=== PATIENT | female | born 1940 | race Caucasian/White ===

== ENCOUNTER 2023-08-27 14:04 | Inpatient (IN) | payer MEDICARE, SELFPAY ==
[2023-08-27] VITALS (7 sets, daily range): BP systolic 142–161; BP diastolic 65–95; PULSE 66–77; RESP 14–28; TEMP 36.6; O2SAT 95–100; BMI 27.1
--- NOTE | ~2023-08-27 | CT_ITS ---
EXAMINATION: CT CHEST WITHOUT CONTRAST CLINICAL INFORMATION: Hypoxia COMPARISON: None available. TECHNIQUE: Multidetector volumetric CT imaging of the chest was done. Axial MIP volume rendering provided. Sagittal and coronal reformatted images were obtained. This CT examination was performed using dose optimization techniques as appropriate, variously including the following: *Automated exposure control *Adjustment of mA and/or kV according to patient size (this includes techniques or standardized protocols for targeted exams where dose is matched to indication/reason for exam; i.e. extremities or head) *Use of iterative reconstruction technique DLP: 192 mGy-cm FINDINGS: LUNGS: Within the left superior lingular segment anteriorly, there is a rounded masslike focus of consolidation measuring 5 x 2.7 x 3.9 cm (transverse by AP by craniocaudal) containing a few small air bronchograms. No surrounding groundglass attenuation. No additional foci of consolidation are identified in the left lung. Mild atelectasis is present in the lung bases bilaterally. Within the of the lateral segment of the right middle lobe, there is a wedge-shaped focus of airspace consolidation measuring 3 x 1.8 x 2.8 cm with small air bronchograms. A similar focus is present in the medial basilar segment of the right lower lobe, measuring 3 x 2.6 x 4.4 cm. Bilateral bronchial thickening is noted, particularly in the lower lobes. There is mild associated atelectasis. Mild interlobular septal thickening is seen at the lung apices and lung bases. A calcified granuloma is present in the left upper lobe. MEDIASTINUM: Cardiomegaly with marked biatrial enlargement. Atherosclerotic calcifications are present in the thoracic aorta and coronary arteries. No aneurysmal dilatation. Small to moderate-sized pericardial effusion. No hilar or mediastinal adenopathy. Thyroid gland is diminutive. CORONARY ARTERY CALCIFICATION: Three-vessel involvement PLEURA: Trace bilateral pleural effusions AXILLA: No lymphadenopathy. UPPER ABDOMEN: Unremarkable. OSSEOUS STRUCTURES: Diffuse idiopathic skeletal atherosclerosis is present in the thoracic spine with right convex lumbar scoliosis. Bones are osteopenic. Vertebral body heights are normal. No fractures. There is [id number] atrophy of the shoulder musculature bilaterally. Bilateral glenohumeral osteoarthritis. CT/CT chest wo IV con IMPRESSION: 1. Cardiomegaly with marked biatrial enlargement, small to moderate-sized pericardial effusion, and trace bilateral pleural effusions. Mild interlobular septal thickening and thickening of the peribronchial vascular interstitium is most consistent with mild interstitial pulmonary edema. Bronchial wall thickening could also be due to bronchitis. 2. A 5 cm focus of masslike consolidation in the lingula as well as 2 wedge-shaped foci of airspace consolidation in the right middle and right lower lobes. Pneumonia present bronchograms, the findings may correspond to multifocal pneumonia, though follow-up imaging after treatment is advised to ensure resolution and exclude mass lesions. Pulmonary infarcts are also on the differential. Fleischner guidelines were followed.
--- NOTE | ~2023-08-27 | CT_ITS ---
EXAMINATION: CT ANGIOGRAM HEAD CT ANGIOGRAM NECK CLINICAL INFORMATION: Reason for Exam AMS COMPARISON: None. TECHNIQUE: Initial noncontrast control operator imaging of the head and neck was performed. Noncontrast head CT was also performed. Test bolus sequences followed by intravenous administration 70 mL of Omnipaque 350. Helical imaging was performed in the axial plane from the aortic arch to the skull vertex. Delayed postcontrast imaging of the head was also performed. The data was processed at the public health technologist workstation for generation of MIP sequences. Angled MIPs and volume rendered reformatted images were also generated at an offline 3D workstation. Stenoses are assessed in accordance with NASCET criteria unless otherwise indicated. DLP: 2415 mGy-cm This CT examination was performed using dose optimization techniques as appropriate, variously including the following: *Automated exposure control. *Adjustment of mA and/or kV according to patient size (this includes techniques or standardized protocols for targeted exams where dose is matched to indication/reason for exam; i.e. extremities or head). *Use of iterative reconstruction technique. FINDINGS: CT Head: There is no evidence of acute intracranial hemorrhage or edematous territorial infarction. A few foci of hypoattenuation in the periventricular and deep white matter are consistent with mild microangiopathy. Lafleur-white matter differentiation is preserved. The ventricles are normal in size and configuration. No evidence for obstructive hydrocephalus. No abnormal mass effect or midline shift. No extra-axial fluid collections. No pathologic intra-axial enhancement or regional oligemia. No acute soft tissue or osseous abnormalities. The mastoid air cells and paranasal sinuses are clear. CT Neck: The thyroid gland and remaining cervical soft tissues are within normal limits. Multilevel cervical spondylosis with multilevel apparent moderate severe spinal canal stenosis, worst at C3-C4. Heterogeneous density of the axial skeleton with some areas of patchy sclerosis. CT Upper Chest: There are several scattered pulmonary nodules in the lung apices, largest measuring up to 3 mm. Please refer to report from same-day CT of the chest performed concurrently for full chest findings in the thorax. The visualized upper mediastinum is within normal limits. Neck CTA: Aortic Arch: Normal contour and caliber. Two vessel branching pattern of the arch with left common carotid artery arising from the brachiocephalic trunk. Great Vessel Origins: No significant stenosis of the branch origins. Right Common Carotid Artery: No focal stenosis or occlusion. Cervical Right Internal Carotid Artery: Calcific atherosclerotic disease of the carotid bulb and proximal internal carotid artery causing less than 50% stenosis. Left Common Carotid Artery: No focal stenosis or occlusion. Cervical Left Internal Carotid Artery: Calcific atherosclerotic disease of the carotid bulb and proximal internal carotid artery causing less than 50% stenosis. Cervical Right Vertebral Artery: No focal stenosis or occlusion. Cervical Left Vertebral Artery: No focal stenosis or occlusion. Brain CTA: Intracranial Internal Carotid Arteries: Calcific atherosclerotic disease of the intracranial internal carotid arteries without occlusion or flow-limiting stenosis. Right Anterior Cerebral Artery: Normal A1 segment. Normal opacification of the distal OTIS segments. Left Anterior Cerebral Artery: Normal A1 segment. Normal opacification of the distal OTIS segments. Anterior Communicating Artery: Normal. Right Middle Cerebral Artery: Normal M1 segment of the MCA without focal stenosis or occlusion. Normal arborization of the distal segments. Left Middle Cerebral Artery: Normal M1 segment of the MCA without focal stenosis or occlusion. Normal arborization of the distal segments. Right Vertebral Artery: Normal V4 segment. Left Vertebral Artery: Normal V4 segment. Basilar Artery: Normal without focal stenosis or occlusion. Normal appearance of the proximal superior cerebellar arteries. Right Posterior Cerebral Artery: Normal P1 segment. Normal opacification of the distal [employer] segments. Left Posterior Cerebral Artery: Normal P1 segment. Normal opacification of the distal [employer] segments. Normal opacification of the superior sagittal, straight, transverse, and sigmoid sinuses. CT/CT angio head neck IMPRESSION: 1. No acute intracranial abnormality including hemorrhage, mass effect, hydrocephalus, or acute territorial edematous infarction. 2. No arterial high grade stenosis or large vessel occlusion in the head or neck. 3. Patchy sclerotic appearance of the axial skeleton. While this may reflect sequela of osteoporosis or metabolic bone disease, osseous metastatic disease is not excluded. 4. Multilevel cervical spondylosis with multilevel apparent moderate to high-grade central spinal canal stenosis, worst and severe at C3-C4. If there are clinical symptoms attributable to myelopathy, this could be further assessed with MRI.
--- NOTE | 2023-08-27 14:08 | ECG_ITS ---
Test Reason : ams Blood Pressure : / mmHG Vent. Rate : 060 BPM Atrial Rate : 000 BPM P-R Int : 000 ms QRS Dur : 088 ms QT Int : 412 ms P-R-T Axes : 000 028 -10 degrees QTc Int : 412 ms Atrial fibrillation Low voltage QRS Nonspecific T wave abnormality Abnormal ECG When compared with ECG of 12-JUL-2004 23:28, Nonspecific T wave abnormality has replaced inverted T waves in Inferior leads Nonspecific T wave abnormality has replaced inverted T waves in Lateral leads Referred By: Darling Fregoso Electronically Signed By:OMAYRA DHILLON
--- NOTE | 2023-08-27 14:12 | ED.GENADULT ---
HPI - General Adult General Chief complaint: Altered Mental Status Stated complaint: AMS,STROKE ALERT,SPEECH,LKWT 06:30,ON ELIQUIS Time Seen by Provider: 08/27/23 14:08 History of Present Illness HPI narrative: 83 y/o F patient; PMH CVA, atrial fibrillation on Eliquis and Metoprolol, hypothyroidism, HF on Bumex and Acetazolamide; presents via EMS from home as stroke alert. Patient last seen normal at 0630 this morning. Patient's told EMS that she became more agitated than her baseline so he provided her with a benzodiazepine. Unclear what time this was given or what dose was given (patient does have a prescription for Clonazepam 0.5mg PRN night time anxiety). Patient was then found by her and daughter to be more confused this afternoon. She had increased generalized weakness of all extremities. On EMS arrival patient had glucose >100. Responsive to verbal stimuli. Generalized weakness of all upper and lower extremities. Patient here is AOx2 to self and birthday. She is aware she recently had a birthday. Denies any acute complaints, pain or discomfort. Able to hold up left and right upper extremities. Able to hold up left and right lower extremities. Able to roll self with assistance. Call placed to patient's without answer. Related Data Allergies Allergy/AdvReac Type Severity Reaction Status Date / Time No Known Allergies Allergy Verified 08/27/23 14:57 Review of Systems Review of Systems: Yes all other systems are reviewed and are negative Neurologic: Denies Abnormal speech present and Denies Sensory deficit (Neuro) REPLACED BY [facility] Past Medical History Attestation statement: The following information was validated with the patient. Source: unable to obtain Social History Social History Advance Directives: No Do you have a plan to hurt others: No Plan Physical Exam ED Vital Signs: Vital Signs - 24 hr 08/27/23 14:33 08/27/23 15:35 08/27/23 16:12 Temperature 97.9 F Pulse Rate 66 Respiratory Rate 14 27 H 28 H Blood Pressure 142/80 H Pulse Oximetry 95 Oxygen Delivery Method Nasal Cannula Oxygen Flow Rate 08/27/23 17:51 08/27/23 19:51 08/27/23 19:57 Temperature Pulse Rate 74 66 Respiratory Rate 19 23 H 17 Blood Pressure 159/65 H 148/79 H Pulse Oximetry 100 99 Oxygen Delivery Method Nasal Cannula Room Air Oxygen Flow Rate 2.5 BMI result Body Mass Index 27.1 Const General: cooperative Orientation/consciousness: oriented to person and oriented to time HENMT Head: Yes normal to inspection and Yes atraumatic Eyes General: appearance normal, both eyes and all related structures Pupils: Equal, round and reactive pupils present and Dilated pupils Neck Neck: No tender Chest Chest palpation & inspection: normal inspection of the chest and normal palpation of entire chest wall Resp Effort & Inspection: normal respiratory effort, able to speak in complete sentences, no cough and no respiratory distress Auscultation: clear to auscultation bilaterally Cardio Other: HR irregularly irregular Peripheral pulses: Peripheral pulses 2+ throughout GI Inspection: Yes normal to inspection and No distended Palpation (GI): Soft to palpation, not firm, nontender, no guarding and not rigid Auscultation: normal bowel sounds Back/Spine/Pelvis Other: No tenderness, no sacral ulceration Neuro General: oriented to person, oriented to time and moves all extremities Cranial nerves: Yes Equal, round and reactive pupils present, Yes Bilaterally intact EOM present and Yes Nystagmus not present Speech: No Abnormal speech present Motor exam (neuro): Other motor observations present (Strength 5/5 upper extremities bilatera, 3/5 lower extremities bilaterally ) Sensory Exam: No Sensory deficit (Neuro) Extrem Other: Healing skin abrasions to right anterior mancini, acute appearing skin abrasion to right medial anterior mancini NIH Stroke Scale Internal: Initial- Upon Arrival Time: 14:27 Level of Consciousness: Alert Level of Consciousness Questions: Answers both questions correctly Level of Consciousness Commands: Performs both tasks correctly Best Gaze: Normal Visual: No visual loss Facial Palsy: Normal Motor Arm (Right): No drift Motor Arm (Left): No drift Motor Leg (Right): Some effort against gravity Motor Leg (Left): Some effort against gravity Limb Ataxia: Absent Sensory: Normal Best Language: No aphasia Dysarthia: Normal Extinction and Inattention: No abnormality Score: 4 Course Course Course Narrative: Patient is afebrile and hemodynamically stable. Last known well at 0630, did receive unknown dose of benzodiazepine this morning for agitation. NIHSS 4 for bilateral lower extremity weakness with some effort against gravity. Patient is able to obey commands and can roll self in bed with direction. Ordered for laboratory studies including AMS studies (ethanol, utox, acetaminophen level, salicylate level), EKG, and CTA Head/Neck. Patient is NOT a candidate for tNK as she has LKW over 4 hours ago and is already on Eliquis. Concern patient's presentation is more global encephalopathy, ? 2/2 to iatrogenic medication. However differentials also includes but is not limited to CVA and infection. Reevaluation(s) Reevaluation #1: Spoke with patient's daughter who provided collateral history. Meri Radha ([phone]). Patient woke up at 0300 with increased confusion from bad dreams. Was agitated and angry for about an hour. Patient has had this since Saturday (08/23/2023). Patient's family is concerned it is related to dementia. Recently patient has had decreased PO intake, weight loss of 6 - 7lb in the last one week, increased body tremors. Patient typically uses walker to ambulate but has had decrease mobility lately. Patient and use to attend card games in living community but lately patient has been too weak to ambulate so far and appeared to have forgotten the rules of how to play the card game as well as having difficulty focusing. Patient's daughter states she arrived to the patient's home at 0530 and found her more confused. At 10am patient was given Clonazepam 0.5mg for anxiety. She had been refusing this medication over the last several days. Immediately after taking this medication she had decreased speech and then appeared to fall asleep. Patient's then approx an hour later had difficulty waking her up. He used his SpO2 monitor and found that the patient was saturating at 95% so he called EMS. Reevaluation #2: Laboratory studies reviewed. No leukocytosis. Baseline Hgb. Significant thrombocytopenia platelets 72. VBG with pH 7.26, pCO2 81. Given VBG and concern for patient's current mental status - discussion had with patient's and daughter at bedside. Patient recently confirmed with daughter and PCP that she was DNR/DNI. Patient's daughter understands the risks (aspiration, pneumonia, infection) and benefits (improved respirations, improvement in respiratory acidosis) regarding the use of bipap in AMS patient. Patient's daughter is agreeable to the use of bipap. Will repeat VBG in 1 hour after bipap placement. Cr 1.2. Troponin 12.8. Normal TSH. Ethanol negative. COVID/Flu/RSV negative. Added CT Chest w/o contrast due to patient's hypoxia although due suspect that this is more 2/2 to encephalopathy. Reevaluation #3: Patient's VBG improved on bipap. Trialled off bipap and VBG worsened - replaced on bipap. Family are interested in continuing bipap at this time pending CT results. If CTs are normal, family would consider ORIENTAL RUG STRETCHER approach. However if there is a reversible cause family would like to consider treatment. While in CT scanner patient with significant agitation, provided Fentanyl 25mcg IV to good effect. Plan: Transition care to Dr. Ackerman pending repeat VBG, CT results, and disposition Condition: Stable Medical Decision Making Lab Data 08/27/23 15:01 08/27/23 15:01 Labs: Lab Results 08/27/23 08/27/23 08/27/23 Range/Units 14:43 15:01 15:09 WBC 6.2 (4.8-10.8) X10*3/uL RBC 4.92 (4.20-5.50) X10*6/uL Hgb 13.9 (12.0-16.0) g/dl Hct 47.1 H (37.0-47.0) % MCV 95.7 (80.0-98.0) fL MCH 28.3 (27.0-33.0) pg MCHC 29.5 L (31.0-35.0) g/dl RDW 16.9 H (11.0-16.0) % Plt Count 72 L (160-400) X10*3/uL MPV 11.2 (9.4-12.3) fL Immature Gran % (Auto) 0.5 H (0.0-0.4) % Neut % (Auto) 83.0 H (45-73) % Lymph % (Auto) 6.9 L (20-40) % [place] % (Auto) 7.6 (2-11) % Eos % (Auto) 1.5 (0-4) % Baso % (Auto) 0.5 (0-2) % Lymph # (Auto) 0.4 L (1.2-4.9) X10*3/uL [place] # (Auto) 0.5 (0.1-1.2) X10*3/uL Eos # (Auto) 0.1 (0.0-0.4) X10*3/uL Baso # (Auto) 0.0 (0.0-0.2) X10*3/uL Abs Immat Gran (auto) 0.03 (0.00-0.03) X10*3/uL Absolute Neuts (auto) 5.1 (2.0-8.3) x10*3/uL Absolute Nucleated RBC 0.000 (0.0-0.012) X10*3/uL Nucleated RBC % (auto) 0.0 (0.0-0.2) /100WBC VBG pH 7.26 L (7.32-7.43) VBG pCO2 81 mmHg VBG pO2 46 mmHg VBG HCO3 37 H (22-26) mmol/L VBG O2 Saturation 69.0 % VBG Base Excess 6.3 mmol/L Sodium 142 (135-145) mmol/L Potassium 3.8 (3.3-5.1) mmol/L Chloride 103 (96-108) mmol/L Carbon Dioxide 31 H (22-29) mmol/L Anion Gap 12 (12-20) BUN 22 H (9-16) mg/dL Creatinine 1.20 (0.5-1.4) mg/dL Estim Creat Clear Calc 35.1 Estimated GFR 43 POC Glucose 111 (60-115) mg/dL Random Glucose 118 H (60-115) mg/dL Calcium 8.9 (8.4-10.2) mg/dL Total Bilirubin 1.0 (0.0-1.0) mg/dL Direct Bilirubin 0.4 (0.0-0.5) mg/dL AST 29 (5-31) U/L ALT 15 (0-31) U/L Alkaline Phosphatase 81 (39-117) U/L Troponin I High Sens 12.8 (<3.5-17.0) ng/L Total Protein 7.8 (6.5-8.0) g/dL Albumin 3.5 (3.5-5.0) g/dL Lipase 20 (8-78) U/L TSH 1.45 (0.32-4.0) uIU/mL Thyroxine (T4) 8.5 (4.5-12.0) ug/dL Salicylates < 5.0 L (15-30) mg/dL Acetaminophen < 3 (<30) mcg/mL Ethyl Alcohol < 10 mg/dL Influenza Type A (PCR) NEGATIVE (Negative) Influenza Type B (PCR) NEGATIVE (Negative) RSV RNA Qual (PCR) NEGATIVE (Negative) SARS-CoV-2 RNA (RT-PCR) NEGATIVE (Negative) 08/27/23 08/27/23 08/27/23 Range/Units 17:18 17:20 19:37 WBC (4.8-10.8) X10*3/uL RBC (4.20-5.50) X10*6/uL Hgb (12.0-16.0) g/dl Hct (37.0-47.0) % MCV (80.0-98.0) fL MCH (27.0-33.0) pg MCHC (31.0-35.0) g/dl RDW (11.0-16.0) % Plt Count (160-400) X10*3/uL MPV (9.4-12.3) fL Immature Gran % (Auto) (0.0-0.4) % Neut % (Auto) (45-73) % Lymph % (Auto) (20-40) % [place] % (Auto) (2-11) % Eos % (Auto) (0-4) % Baso % (Auto) (0-2) % Lymph # (Auto) (1.2-4.9) X10*3/uL [place] # (Auto) (0.1-1.2) X10*3/uL Eos # (Auto) (0.0-0.4) X10*3/uL Baso # (Auto) (0.0-0.2) X10*3/uL Abs Immat Gran (auto) (0.00-0.03) X10*3/uL Absolute Neuts (auto) (2.0-8.3) x10*3/uL Absolute Nucleated RBC (0.0-0.012) X10*3/uL Nucleated RBC % (auto) (0.0-0.2) /100WBC VBG pH 7.42 7.22 L (7.32-7.43) VBG pCO2 48 92 mmHg VBG pO2 142 84 mmHg VBG HCO3 31 H 38 H (22-26) mmol/L VBG O2 Saturation 100.0 95.0 % VBG Base Excess 6.3 6.6 mmol/L Sodium (135-145) mmol/L Potassium (3.3-5.1) mmol/L Chloride (96-108) mmol/L Carbon Dioxide (22-29) mmol/L Anion Gap (12-20) BUN (9-16) mg/dL Creatinine (0.5-1.4) mg/dL Estim Creat Clear Calc Estimated GFR POC Glucose (60-115) mg/dL Random Glucose (60-115) mg/dL Calcium (8.4-10.2) mg/dL Total Bilirubin (0.0-1.0) mg/dL Direct Bilirubin (0.0-0.5) mg/dL AST (5-31) U/L ALT (0-31) U/L Alkaline Phosphatase (39-117) U/L Troponin I High Sens 9.6 (<3.5-17.0) ng/L Total Protein (6.5-8.0) g/dL Albumin (3.5-5.0) g/dL Lipase (8-78) U/L TSH (0.32-4.0) uIU/mL Thyroxine (T4) (4.5-12.0) ug/dL Salicylates (15-30) mg/dL Acetaminophen (<30) mcg/mL Ethyl Alcohol mg/dL Influenza Type A (PCR) (Negative) Influenza Type B (PCR) (Negative) RSV RNA Qual (PCR) (Negative) SARS-CoV-2 RNA (RT-PCR) (Negative) Critical Care Time Critical Care Time Critical Care Time: Yes Total Critical Care Time: 60 Attestation: Respiratory failure requiring non-invasive ventilation. Repeat interpretation of blood gas. Discharge Plan Discharge Clinical Impression: Altered mental status, Hypoventilation Patient Disposition: Still a Patient Print Language: Syriac
[2023-08-27 15:08] LABS: Glucose, Whole Blood 111 mg/dL (60-115)
[2023-08-27 15:10] LABS: MANUAL DIFF FLAG NO
[2023-08-27 15:17] LABS: VBG Base Excess 6.3 mmol/L; VBG HCO3 37 mmol/L (22-26); VBG pCO2 81 mmHg; VBG pH 7.26 (7.32-7.43); VBG pO2 46 mmHg
[2023-08-27 15:17] LABS: Venous Blood Gas Refer to POC result
[2023-08-27 15:26] LABS: Basophils Percent Auto 0.5 % (0-2); Eosinophils Absolute Auto 0.1 X10*3/uL (0.0-0.4); Eosinophils Percent Auto 1.5 % (0-4); Hematocrit 47.1 % (37.0-47.0); Hemoglobin 13.9 g/dl (12.0-16.0); Imm Gran Abs Auto 0.03 X10*3/uL (0.00-0.03); Imm Gran Pct Auto 0.5 % (0.0-0.4); Lymphocytes Absolute Auto 0.4 X10*3/uL (1.2-4.9); Lymphocytes Percent Auto 6.9 % (20-40); Mean Corpuscular HGB Conc 29.5 g/dl (31.0-35.0); Mean Corpuscular Hemoglobin 28.3 pg (27.0-33.0); Mean Corpuscular Volume 95.7 fL (80.0-98.0); Monocytes Absolute Auto 0.5 X10*3/uL (0.1-1.2); Monocytes Percent Auto 7.6 % (2-11); Neutrophils Absolute Auto 5.1 x10*3/uL (2.0-8.3); Red Blood Count 4.92 X10*6/uL (4.20-5.50); Red Cell Distribution Width 16.9 % (11.0-16.0); White Blood Count 6.2 X10*3/uL (4.8-10.8)
[2023-08-27 15:42] LABS: Troponin-I High Sensitivity 12.8 ng/L (<3.5-17.0)
[2023-08-27 15:43] LABS: Alanine Aminotransferase 15 U/L (0-31); Albumin Level 3.5 g/dL (3.5-5.0); Alkaline Phosphatase 81 U/L (39-117); Anion Gap 12 (12-20); Aspartate Amino Transferase 29 U/L (5-31); Bilirubin Direct 0.4 mg/dL (0.0-0.5); Blood Urea Nitrogen 22 mg/dL (9-16); Calcium 8.9 mg/dL (8.4-10.2); Carbon Dioxide 31 mmol/L (22-29); Chloride 103 mmol/L (96-108); Creatinine Clr Calc Pharmacy 35.1; Estimated Glomerular Filt Rate 43; Ethanol < 10 mg/dL; Glucose Random 118 mg/dL (60-115); Lipase 20 U/L (8-78); Potassium 3.8 mmol/L (3.3-5.1); Sodium 142 mmol/L (135-145); Total Protein 7.8 g/dL (6.5-8.0)
[2023-08-27 15:50] LABS: Influenza A PCR NEGATIVE (Negative); Influenza B PCR NEGATIVE (Negative); Resp Syncy Virus RNA Qual PCR NEGATIVE (Negative); SARS COV2 PCR INHOUSE NEGATIVE (Negative)
[2023-08-27 15:51] LABS: Mean Platelet Volume 11.2 fL (9.4-12.3); Platelet Count 72 X10*3/uL (160-400)
[2023-08-27 15:57] LABS: T4 Thyroxine 8.5 ug/dL (4.5-12.0); Thyroid Stimulating Hormone 1.45 uIU/mL (0.32-4.0)
[2023-08-27 16:28] LABS: Acetaminophen LAB < 3 mcg/mL (<30); Salicylate < 5.0 mg/dL (15-30)
[2023-08-27 17:28] LABS: VBG Base Excess 6.3 mmol/L; VBG HCO3 31 mmol/L (22-26); VBG pCO2 48 mmHg; VBG pH 7.42 (7.32-7.43); VBG pO2 142 mmHg
[2023-08-27 17:29] LABS: Venous Blood Gas Refer to POC result
[2023-08-27 17:51] LABS: Troponin-I High Sensitivity 9.6 ng/L (<3.5-17.0)
[2023-08-27 19:44] LABS: VBG Base Excess 6.6 mmol/L; VBG HCO3 38 mmol/L (22-26); VBG pCO2 92 mmHg; VBG pH 7.22 (7.32-7.43); VBG pO2 84 mmHg
[2023-08-27 19:49] LABS: Venous Blood Gas Refer to POC result
[2023-08-27] MEDS: iohexoL 350 MG/ML 100 ML INFUS..BTL IV (21:11)
[2023-08-27] MEDS: fentaNYL citrate/PF 100 MCG/2 ML VIAL 25 MCG IVPUSH (21:25)
--- NOTE | 2023-08-27 21:26 | PC.NURSE ---
Pt became agitated in CT. MD at bedside. Verbal order: Fentanyl 25mcg IV. Became calm and CT scan able to be done.
[2023-08-27 21:40] LABS: VBG Base Excess 5.8 mmol/L; VBG HCO3 30 mmol/L (22-26); VBG pCO2 45 mmHg; VBG pH 7.44 (7.32-7.43); VBG pO2 220 mmHg
[2023-08-27 21:41] LABS: Venous Blood Gas Refer to POC result
[2023-08-28] VITALS (8 sets, daily range): BP systolic 123–173; BP diastolic 57–83; PULSE 66–87; RESP 12–25; TEMP 36.4–37; O2SAT 94–99
[2023-08-28 00:14] LABS: Lactic Acid 1.2 mmol/L (0.5-2.0)
[2023-08-28 02:25] LABS: Venous Blood Gas Refer to POC result
[2023-08-28 02:27] LABS: VBG Base Excess 5.9 mmol/L; VBG HCO3 31 mmol/L (22-26); VBG pCO2 48 mmHg; VBG pH 7.42 (7.32-7.43); VBG pO2 163 mmHg
--- NOTE | 2023-08-28 04:29 | P.HPHOSP_ITS ---
History of Present Illness Date of Service: 08/28/23 Attending physician on admission: Cleo Morfin Chief Complaint: Altered mental status Soraya Chen is 83 years old woman with past medical history significant for atrial fibrillation on Eliquis, hypothyroidism and CHF on Bumex and acetazolamide was brought to the emergency department via EMS after she was found to be altered. According to ED triage notes patient was seen well around 6:30 AM by her . She was found to have an oxygen saturation between 80 and 88% on room air by EMS. Her oxygen saturation increased to 95% with supplemental oxygen, 2 liters/minutes via nasal cannula. Patient was given clonazepam 0.5 mg by her as she was agitated. It was mentioned that patient has decreased p.o. intake, tremors and weight loss over the last week. As per ED provider who spoke with patient's family patient was found to be more confused today and was not found to have any focal weakness. In the ED, she was found to be tachypneic and hypoxic. No tachycardia or hypotension were reported. Blood workup showed no leukocytosis. Hemoglobin is 13.9 and platelets are low, 72. There are no significant electrolyte imbalances. Bicarb was 31. LFTs, TSH and troponins are normal. Salicylates, acetaminophen alcohol levels are undetectable. Viral testing for COVID-19, influenza and RSV is negative. Initial venous blood gas showed respiratory acidosis. Chest CTA showed cardiomegaly with marked bilateral enlargement, moderate pericardial effusion and interstitial pulmonary edema. It also showed finding consistent with pneumonia. Head and neck CTA showed no intracranial bleeding, hydrocephalus, mass effect or high-grade stenosis or large vessel occlusion. ECG showed atrial fibrillation with a heart rate 60 beats per minute and nonspecific T-wave abnormalities. Patient was treated with BiPAP and most recent venous gas showed correction of respiratory acidosis. According to ED notes patient is DNR/DNI. Patient was unable to provide her HPI due to altered mental status. Review of Systems 2 Review of Systems: Yes Unobtainable due to mental status [facility] Medical History (Updated 08/28/23 @ 05:06 by Cleo Morfin MD) Atrial fibrillation Congestive heart failure Hypothyroidism Social History Advance Directives: No Do you have a plan to hurt others: No Plan Meds Allergies Allergy/AdvReac Type Severity Reaction Status Date / Time No Known Allergies Allergy Verified 08/27/23 14:57 Active Medications: Current Medications Heparin Sodium (Porcine) (Heparin Sodium,Porcine 5,000 Unit/Ml Vial) 5,000 unit SUBCUT Q12H [facility] Sodium Chloride (0.9 % Sodium Chloride Flush 3 Ml Syringe) 3 ml IVFLUSH QSHIFT TETO Physical Exam 2 Vital Signs and Narrative: Vital Signs: Last Vital Signs Temp 98.6 F 08/28/23 01:30 Pulse 66 08/28/23 04:26 Resp 12 08/28/23 04:26 BP 142/63 H 08/28/23 04:26 Pulse Ox 99 08/28/23 04:26 O2 Del Method Nasal Cannula 08/28/23 04:26 O2 Flow Rate 2 08/28/23 04:26 Oxygen Flow Rate 3 08/27/23 14:33 BMI result Body Mass Index 27.1 Constitutional - Lethargic. Wakes up upon calling her name fall asleep quickly. No distress. Afebrile. HEENT - Atraumatic head. PERRL. Normal sclerae. Dry oral mucosa. Heart - RRR. Distant sounds. Lungs - Normal lung expansion, Normal respiratory effort, poor inspiratory effort. No tachypnea. No wheezes. Abdomen - NT / ND; +BS; No rebound or guarding Extremities - no calf tenderness bilaterally, no swelling Skin - Warm/Dry Neurological - Lethargic. Awakes open calling her name. Able to tell me her name. No facial droop noted. Psychological - No agitation. Results Labs 08/27/23 15:01 08/27/23 15:01 Labs: Laboratory Results - last 24 hr 08/27/23 08/27/23 08/27/23 14:43 15:01 15:09 MCV 95.7 MCH 28.3 MCHC 29.5 L RDW 16.9 H Plt Count 72 L MPV 11.2 Immature Gran % (Auto) 0.5 H Neut % (Auto) 83.0 H Lymph % (Auto) 6.9 L Grundy % (Auto) 7.6 Eos % (Auto) 1.5 Baso % (Auto) 0.5 Lymph # (Auto) 0.4 L Grundy # (Auto) 0.5 Eos # (Auto) 0.1 Baso # (Auto) 0.0 Abs Immat Gran (auto) 0.03 Absolute Neuts (auto) 5.1 Absolute Nucleated RBC 0.000 Nucleated RBC % (auto) 0.0 VBG pH 7.26 L VBG pCO2 81 VBG pO2 46 VBG HCO3 37 H VBG O2 Saturation 69.0 VBG Base Excess 6.3 Anion Gap 12 Estim Creat Clear Calc 35.1 Estimated GFR 43 POC Glucose 111 Random Glucose 118 H Lactic Acid Calcium 8.9 Total Bilirubin 1.0 Direct Bilirubin 0.4 AST 29 ALT 15 Alkaline Phosphatase 81 Troponin I High Sens 12.8 Total Protein 7.8 Albumin 3.5 Lipase 20 TSH 1.45 Thyroxine (T4) 8.5 Salicylates < 5.0 L Acetaminophen < 3 Ethyl Alcohol < 10 Influenza Type A (PCR) NEGATIVE Influenza Type B (PCR) NEGATIVE RSV RNA Qual (PCR) NEGATIVE SARS-CoV-2 RNA (RT-PCR) NEGATIVE 08/27/23 08/27/23 08/27/23 17:18 17:20 19:37 MCV MCH MCHC RDW Plt Count MPV Immature Gran % (Auto) Neut % (Auto) Lymph % (Auto) Grundy % (Auto) Eos % (Auto) Baso % (Auto) Lymph # (Auto) Grundy # (Auto) Eos # (Auto) Baso # (Auto) Abs Immat Gran (auto) Absolute Neuts (auto) Absolute Nucleated RBC Nucleated RBC % (auto) VBG pH 7.42 7.22 L VBG pCO2 48 92 VBG pO2 142 84 VBG HCO3 31 H 38 H VBG O2 Saturation 100.0 95.0 VBG Base Excess 6.3 6.6 Anion Gap Estim Creat Clear Calc Estimated GFR POC Glucose Random Glucose Lactic Acid Calcium Total Bilirubin Direct Bilirubin AST ALT Alkaline Phosphatase Troponin I High Sens 9.6 Total Protein Albumin Lipase TSH Thyroxine (T4) Salicylates Acetaminophen Ethyl Alcohol Influenza Type A (PCR) Influenza Type B (PCR) RSV RNA Qual (PCR) SARS-CoV-2 RNA (RT-PCR) 08/27/23 08/27/23 08/28/23 21:32 23:57 02:20 MCV MCH MCHC RDW Plt Count MPV Immature Gran % (Auto) Neut % (Auto) Lymph % (Auto) Grundy % (Auto) Eos % (Auto) Baso % (Auto) Lymph # (Auto) Grundy # (Auto) Eos # (Auto) Baso # (Auto) Abs Immat Gran (auto) Absolute Neuts (auto) Absolute Nucleated RBC Nucleated RBC % (auto) VBG pH 7.44 H 7.42 VBG pCO2 45 48 VBG pO2 220 163 VBG HCO3 30 H 31 H VBG O2 Saturation 100.0 99.0 VBG Base Excess 5.8 5.9 Anion Gap Estim Creat Clear Calc Estimated GFR POC Glucose Random Glucose Lactic Acid 1.2 Calcium Total Bilirubin Direct Bilirubin AST ALT Alkaline Phosphatase Troponin I High Sens Total Protein Albumin Lipase TSH Thyroxine (T4) Salicylates Acetaminophen Ethyl Alcohol Influenza Type A (PCR) Influenza Type B (PCR) RSV RNA Qual (PCR) SARS-CoV-2 RNA (RT-PCR) Imaging Radiologist's Impressions: Impressions Head/Neck CTA 08/27/23 21:35 IMPRESSION: 1. No acute intracranial abnormality including hemorrhage, mass effect, hydrocephalus, or acute territorial edematous infarction. 2. No arterial high grade stenosis or large vessel occlusion in the head or neck. 3. Patchy sclerotic appearance of the axial skeleton. While this may reflect sequela of osteoporosis or metabolic bone disease, osseous metastatic disease is not excluded. 4. Multilevel cervical spondylosis with multilevel apparent moderate to high-grade central spinal canal stenosis, worst and severe at C3-C4. If there are clinical symptoms attributable to myelopathy, this could be further assessed with MRI. Chest CT 08/27/23 21:36 IMPRESSION: 1. Cardiomegaly with marked biatrial enlargement, small to moderate-sized pericardial effusion, and trace bilateral pleural effusions. Mild interlobular septal thickening and thickening of the peribronchial vascular interstitium is most consistent with mild interstitial pulmonary edema. Bronchial wall thickening could also be due to bronchitis. 2. A 5 cm focus of masslike consolidation in the lingula as well as 2 wedge-shaped foci of airspace consolidation in the right middle and right lower lobes. Pneumonia present bronchograms, the findings may correspond to multifocal pneumonia, though follow-up imaging after treatment is advised to ensure resolution and exclude mass lesions. Pulmonary infarcts are also on the differential. Fleischner guidelines were followed. Assessment and Plan (1) Acute encephalopathy: Status: Acute (2) Respiratory failure with hypoxia and hypercapnia: Qualifiers: Chronicity: acute Qualified Code(s): J96.01 - Acute respiratory failure with hypoxia; J96.02 - Acute respiratory failure with hypercapnia Status: Acute Plan Soraya Chen is 83 years old woman admitted with: * Acute encephalopathy, likely multifactorial: Hypoxia secondary to pneumonia + interstitial pulmonary edema with pericardial effusion, over-sedation secondary to benzodiazepine use causing respiratory acidosis. ?Stroke symptoms. Admit to hospitalist service. Telemetry. Continuous pulse oximetry. Supplemental O2 to keep O2 sats > 90%. Aspiration and fall precautions. NPO until swallow eval. Continue empiric IV antibiotic therapy with Zosyn. Chest CT scan to be repeated after antibiotic course (? Masslike structure). Avoid benzodiazepines or sedatives. Neurology consult for further recommendations. * Hypoxic and hypercapnic respiratory failure likely secondary to sedation, pneumonia, pulmonary edema and pericardial effusion. Respiratory acidosis resolved. Avoid sedatives. Supplemental oxygen. Start therapy with Lasix IV + IV antibiotics. * History of heart failure with moderate pericardial effusion + pulmonary edema on chest CT scan. Start treatment with Lasix IV. Check TTE. Cardiology consult. * Chronic atrial fibrillation, rate controlled. Telemetry. Unclear if patient is using rate control agents. Med rec by pharmacy pending. Eliquis on hold due to thrombocytopenia. * Thrombocytopenia, cause unclear. Hold Eliquis. Continue to monitor. * Hypothyroidism. TSH is normal. Unclear if patient is taking levothyroxine. Med rec by pharmacy pending. DVT prophylaxis: SCDs only GI prophylaxis: Protonix IV Code status: DNR/DNI (according to ED who spoke with patient's daughter). Patient will need hospitalization for at least 2 midnights for acute encephalopathy respiratory failure treatment with supplemental oxygen, diuretics and empiric IV antibiotic therapy. Quality Stroke Does the patient have a stroke diagnosis?: No VTE Prior VTE?: No VTE Risk Level:: Medical - moderate - high VTE Device Contraindication: Treatment Not Indicated VTE Drug Contraindication: N/A - Med Ordered
[2023-08-28] MEDS: Piperacillin Sodium/Tazobactam 3.375 GM in 0.9 % Sodium Chloride 50 ML IV ×4 (05:50→18:39)
[2023-08-28] MEDS: Pantoprazole Sodium 40 MG/10 ML VIAL IVPUSH (05:50)
[2023-08-28 05:55] LABS: MANUAL DIFF FLAG NO
[2023-08-28 05:56] LABS: Eosinophils Percent Auto 0.2 % (0-4); Hematocrit 48.8 % (37.0-47.0); Imm Gran Abs Auto 0.16 X10*3/uL (0.00-0.03); Lymphocytes Absolute Auto 0.3 X10*3/uL (1.2-4.9); Mean Corpuscular Volume 96.1 fL (80.0-98.0); Red Blood Count 5.08 X10*6/uL (4.20-5.50)
[2023-08-28 05:58] LABS: Basophils Percent Auto 0.5 % (0-2); Hemoglobin 14.3 g/dl (12.0-16.0); Lymphocytes Percent Auto 3.7 % (20-40); Mean Corpuscular HGB Conc 29.3 g/dl (31.0-35.0); Mean Corpuscular Hemoglobin 28.1 pg (27.0-33.0); Mean Platelet Volume 9.9 fL (9.4-12.3); Monocytes Absolute Auto 0.6 X10*3/uL (0.1-1.2); Neutrophils Absolute Auto 6.9 x10*3/uL (2.0-8.3); Neutrophils Percent Auto 85.6 % (45-73); Red Cell Distribution Width 16.6 % (11.0-16.0)
[2023-08-28 05:59] LABS: Platelet Count 67 X10*3/uL (160-400); White Blood Count 8.1 X10*3/uL (4.8-10.8)
--- NOTE | 2023-08-28 07:00 | CA_ITS ---
Transthoracic Echocardiogram Patient (Last, First, Middle): ParentSoraya, Gender: Female Date of : 1940 Age: 83 Procedure Date: 08/28/2023 Procedure Type: Transthoracic Echocardiogram Location: ER Height: 165.1 cm Weight: 73.94 kg BSA: 1.81 m2 Heart Rate: bpm BP: 123 / 57 mmHg Product Marketer: SB Referring MD: Cleo Morfin MD Symptoms: Pericardial effusion noted on CT scan Study Quality: Adequate w contrast ECG Rhythm: Atrial Fibrillation Conclusions: - The left ventricular systolic function is hyperdynamic. The visually estimated ejection fraction is >70%. - No obvious valvular pathology seen on this study. - Mild to moderate pulmonary hypertension is present. - There is a small loculated pericardial effusion overlying the left ventricle and right atrium. - The inferior vena cava is mildly dilated and collapses less than 50% with inspiration. Findings Procedure Information Contrast agent, definity, is being given per protocol without apparent complications. Left Ventricle Normal left ventricular cavity size. There is normal left ventricular wall thickness. The left ventricular systolic function is hyperdynamic. The visually estimated ejection fraction is >70%. There is no evidence of regional wall motion abnormalities. Diastolic function is indeterminate on the basis of available data. Right Ventricle The right ventricle was not well visualized. Normal right ventricular cavity size. Atria The left atrium is likely dilated. The right atrium is severely dilated. Aortic Valve There is a normal trileaflet aortic valve. There is no aortic valve stenosis. There is no aortic valve regurgitation. Mitral Valve The mitral valve appears normal. There is no mitral valve regurgitation. There is no mitral valve stenosis. Pulmonic Valve The pulmonic valve is likely normal. Tricuspid Valve There is mild tricuspid valve regurgitation. The right ventricular systolic pressure is 57 mmHg. Mild to moderate pulmonary hypertension is present. Great Vessels The asc aorta and aortic arch are normal in size. Small plaque is seen in the sino tubular ridge. Venous The inferior vena cava is mildly dilated and collapses less than 50% with inspiration. Pericardium/Pleural There is a small loculated pericardial effusion overlying the left ventricle and right atrium. Prior Study Comparison No prior study available for comparison. Recommendations, Care & Conclusions No obvious valvular pathology seen on this study. Measurements 2D Linear Measurements IVSd: 0.91 0.6-0.9/0.6-1.0 cm LVIDd: 4.73 3.9-5.3/4.2-5.9 cm LVIDd Index: 2.61 2.4-3.2/2.2-3.1 cm/m2 LVIDs: 3.20 2.0-3.6 cm LVPWd: 0.88 0.7-1.1 cm LA Diam: 3.90 2.7-3.8/3.0-4.0 cm LAIDs Index: 2.15 1.5-2.3 cm/m2 LV Mass: 178.07 67-162/88-224 g LV Mass Index: 98.38 43-95/49-115 g/m2 LVOT Diam: 1.90 3.0+(-)1.3 cm 2D Systolic Function EF 4C: 75.10 >55% EF 2C: 75.60 >55% EF BiP: 74.20 >55% Mitral Valve MV Pk E: 1.17 E'Lateral: 6.42 E'Medial: 7.37 E/E' Med: 15.90 E/E' Lat: 18.20 Aortic Valve AoV Pk Nate: 0.80 AoV Pk Grad: 3.00 LVOT LVOT Pk Nate: 0.66 LVOT Mn Nate: 0.43 LVOT VTI: 0.12 LVOT Pk Grad: 2.00 LVOT Mn Grad: 1.00 LVOT Diam: 1.90 LVOT Area: 2.84 Diastolic Function MV Pk E: 1.17 E'Medial: 7.37 E/E' Med: 15.90 E' Laterial: 6.42 E/E' Lat: 18.20 Tricuspid Valve TR Pk Nate: 3.24 TR Pk Grad: 42.00 RA Press: 15.00 RVSP: 57.00 Great Vessels Aorta Sinus of Valsalva: 3.20 2.0-3.5 cm Ao Asc: 3.70 2.1-3.4 cm Ao Arch: 2.40 Pulmonary Valve PV Pk Nate: 0.84 Peak PV Grad: 3.00 Updated in Other Vendor System with Status of Final Daniel Wade MD electronically signed on 08/28/2023 11:48:53 AM with status of Final
[2023-08-28] MEDS: 0.9 % Sodium Chloride Flush 3 ML SYRINGE IVFLUSH (07:28)
--- NOTE | 2023-08-28 07:54 | PC.NURSE ---
This RN assumed care, pt laying supine in bed, no verbal response. Pt does move arms spontaneously and flutter eyes. VSS.
[2023-08-28 08:18] LABS: Alanine Aminotransferase 14 U/L (0-31); Albumin Level 3.3 g/dL (3.5-5.0); Alkaline Phosphatase 77 U/L (39-117); Anion Gap 17 (12-20); Aspartate Amino Transferase 29 U/L (5-31); Bilirubin Total 1.2 mg/dL (0.0-1.0); Blood Urea Nitrogen 23 mg/dL (9-16); Calcium 8.7 mg/dL (8.4-10.2); Carbon Dioxide 24 mmol/L (22-29); Chloride 107 mmol/L (96-108); Creatinine Clr Calc Pharmacy 31.7; Estimated Glomerular Filt Rate 38; Glucose Random 104 mg/dL (60-115); Potassium 4.2 mmol/L (3.3-5.1); Sodium 145 mmol/L (135-145); Total Protein 7.7 g/dL (6.5-8.0)
[2023-08-28] MEDS: Furosemide 20 MG/2 ML VIAL IVPUSH (09:55)
--- NOTE | 2023-08-28 10:40 | MHC.SLORD ---
Speech Language Pathology Order Status: BARK GRINDER attempted to see pt for clinical swallow eval this AM. Pt not awaking to verbal stimuli, repositioning, or sternal rub. Pt only response was groaning. Please reach out to BARK GRINDER if pt becomes awake/alert enough to participate in evaluation.
[2023-08-28 10:46] LABS: Appearance Urine Clear; Color Urine Yellow; Glucose Urine UA Negative (Negative); Leukocyte Esterase Urine Negative (Negative); Nitrite Urine Negative (Negative); PH 5.5 (5.0-9.0); Specific Gravity - Urine >= 1.030 (1.005-1.025); Urine Blood Negative (Negative); Urine Ketones Negative (Negative); Urine Protein Trace mg/dL (Neg-Trace)
[2023-08-28 10:59] LABS: Amphetamine Screen Urine Not Detected (Not Detect); Barbiturates, Urine Not Detected (Not Detect); Benzodiazepines Screen Urine Not Detected (Not Detect); Buprenorphine Scr Not Detected (Not Detect); Cannabinoid Screen Urine Not Detected (Not Detect); Cocaine Screen Urine Not Detected (Not Detect); Fentanyl, urine POSITIVE (Not Detect); Methadone Screen, Urine Not Detected (Not Detect); Opiate Screen Urine Not Detected (Not Detect); Oxycodone Screen Urine Not Detected (Not Detect); Phencyclidine Screen Urine Not Detected (Not Detect)
--- NOTE | 2023-08-28 11:40 | MHC.CM.PN ---
IMM 08/28/23 sent to / HCP. Pt lives with her . He helps to take care of her and they live in housing where they can request assistance within the building if they need it. Pt. has recently had VNA services from [facility]. HCP has been requested from [facility], where said it is on file. Pt. uses a walker. Transportation to be provided by daughter at [place]. PCP confirmed: Dr. Evangelista. DCP: home with services. CM to follow and assist with DC planning.
--- NOTE | 2023-08-28 11:42 | PC.NURSE ---
Pt noted to output approx 250 mL urine, yellow and clear, since Lasix administration. Continues not to respond verbally. VSS.
--- NOTE | 2023-08-28 12:30 | PC.NURSE ---
Pts IV no longer patent, leaking blood, unable to maintain. IV removed. Pt very hard stick, unable to get another IV. Another RN at bedside attempting ultrasound IV. ABX late due to this.
--- NOTE | 2023-08-28 13:58 | PC.NURSE ---
IV successfully placed by RN in left AC, ABX infused per MAR. Family at bedside.
--- NOTE | 2023-08-28 14:10 | MHC.EDTECH ---
compression socks were placed on pt's bl feet with orders from JES Dumont
--- NOTE | 2023-08-28 14:10 | PHA.MEDREC ---
Pharmacy Consult ? Medication Reconciliation Pharmacy has completed the medication reconciliation. used patient medication list from home. Patients Daughter and both verified they get her prescriptions from [facility] in [place] and from mail order [facility].
--- NOTE | 2023-08-28 14:37 | P.CNNE_ITS ---
History of Present Illness Data of Consult Service Date: 08/28/23 Primary Care Provider: Jade Evangelista MD [facility] Reason for consult: Altered mental status This is a 83 years old woman with h/o atrial fibrillation on Eliquis, hypothyroidism, and CHF was brought to the emergency department via EMS after she was found to be altered. According to ED triage notes patient was seen well around 6:30 AM by her . She was found to have an oxygen saturation between 80 and 88% on room air by EMS. Her oxygen saturation increased to 95% with supplemental oxygen, 2 liters/minutes via nasal cannula. Patient was given clonazepam 0.5 mg by her as she was agitated. It was mentioned that patient has decreased p.o. intake, tremors and weight loss over the last week. As per ED provider who spoke with patient's family patient was found to be more confused today and was not found to have any focal weakness.She is unable to give any info. She has evidence of pneumonia. Also positive for Fentanyl on Tox screen CT brain age appropriate changes and CTA of head and neck are negative Review of Systems 2 Review of Systems: Yes all other systems are reviewed and are negative and Unobtainable due to mental status Neurologic: Denies Abnormal speech present and Denies Sensory deficit (Neuro) [facility] Past Medical History Medical History (Updated 08/28/23 @ 05:06 by Cleo Morfin MD) Atrial fibrillation Congestive heart failure Hypothyroidism Social History Social History Patient Tobacco Use Status: Tobacco use Unknown Smoked in Last 30 Days: No Use of substances other than those prescribed or required for medical reasons: No Advance Directives: No Do you have a plan to hurt others: No Plan Nutrition Risks: No Nutritional Risk service: No Meds Allergies Allergy/AdvReac Type Severity Reaction Status Date / Time No Known Allergies Allergy Verified 08/27/23 14:57 Active Medications: Current Medications Furosemide (Furosemide 20 Mg/2 Ml Vial) 20 mg IVPUSH DAILY TETO; Protocol Last Admin: 08/28/23 09:55 Dose: 20 mg Piperacillin Sod/Tazobactam (Sod 3.375 gm/ Sodium Chloride) 50 mls @ 100 mls/hr IV Q6H TETO Last Infusion: 08/28/23 13:53 Dose: Infused Pantoprazole Sodium (Pantoprazole Sodium 40 Mg/10 Ml Vial) 40 mg IVPUSH DAILY@0630 [facility] Last Admin: 08/28/23 05:50 Dose: 40 mg Sodium Chloride (0.9 % Sodium Chloride Flush 3 Ml Syringe) 3 ml IVFLUSH QSHIFT [facility] Last Admin: 08/28/23 07:28 Dose: 3 ml Home Medications ?Medication ?Instructions ?Recorded ?Confirmed ?Last Taken ?Type acetazolamide 125 mg tablet 125 mg PO BID@0800,199908/28/23 08/28/23 Unknown History apixaban 5 mg tablet (Eliquis) 5 mg PO BID@0800,199908/28/23 08/28/23 Unknown History aspirin 81 mg tablet,delayed 81 mg PO DAILY@79908/28/23 08/28/23 Unknown History release atorvastatin 80 mg tablet 40 mg PO DAILY@199908/28/23 08/28/23 Unknown History bumetanide 1 mg tablet 1 mg PO DAILY@149908/28/23 08/28/23 Unknown History bumetanide 1 mg tablet 2 mg PO DAILY@79908/28/23 08/28/23 Unknown History cetirizine 10 mg tablet (Zyrtec) 10 mg PO DAILY 08/28/23 08/28/23 Unknown History clonazepam 0.5 mg tablet 0.5 mg PO BEDTIME PRN Anxiety 08/28/23 08/28/23 Unknown History ferrous sulfate 325 mg (65 mg 325 mg PO MOTH@0808/28/23 08/28/23 Unknown History iron) tablet hydralazine 10 mg tablet 10 mg PO TID@0800,1500,199908/28/23 08/28/23 Unknown History levothyroxine 137 mcg tablet 68.5 mcg PO DAILY@0708/28/23 08/28/23 Unknown History metoprolol tartrate 25 mg tablet 25 mg PO BID@0800,199908/28/23 08/28/23 Unknown History oxybutynin chloride 10 mg 10 mg PO DAILY@0808/28/23 08/28/23 Unknown History tablet,extended release 24 hr potassium chloride 20 mEq 20 meq PO SUMOTUWEFRSA@149908/28/23 08/28/23 Unknown History tablet,extended release potassium chloride 20 mEq 40 meq PO TH@1500 08/28/23 08/28/23 Unknown History tablet,extended release Physical Exam 2 Vital Signs: Vital Signs: Last Vital Signs Temp 98.6 F 08/28/23 01:30 Pulse 72 08/28/23 11:41 Resp 25 H 08/28/23 11:41 BP 143/72 H 08/28/23 11:41 Pulse Ox 98 08/28/23 11:41 O2 Del Method Nasal Cannula 08/28/23 11:41 O2 Flow Rate 2 08/28/23 11:41 Oxygen Flow Rate 3 08/27/23 14:33 BMI result Body Mass Index 27.1 Const: General: cooperative Orientation/consciousness: oriented to person and oriented to place HEENT: Head: Yes normal to inspection and Yes atraumatic Eyes: General: appearance normal, both eyes and all related structures P upils: Equal, round and reactive pupils present and Dilated pupils Neck: Neck: No tender Chest: Chest palpation & inspection: normal inspection of the chest and normal palpation of entire chest wall Resp: Effort & Inspection: normal respiratory effort, able to speak in complete sentences, no cough and no respiratory distress Auscultation: clear to auscultation bilaterally Cardio: Other: HR irregularly irregular Peripheral pulses: Peripheral pulses 2+ throughout GI: Inspection: Yes normal to inspection and No distended Palpation (GI): S oft to palpation, not firm, nontender, no guarding and not rigid A uscultation: normal bowel sounds Back/Spine/Pelvis: Other: No tenderness, no sacral ulceration Neuro: Other: She is lethargic but arousable. Her sister is awake briefly doesn't know her name and says she is in the hospital. She recognized her daughter and her . She answers in monosyllables and then goes back to sleep. She does not complain of any headache. There is some discomfort on neck movement. Events Traffic Controller strength is symmetrical and she moves all 4 extremities. No facial asymmetry. General: oriented to person, oriented to place and moves all extremities Cranial nerves: Yes Equal, round and reactive pupils present, Yes Bilaterally intact EOM present and Yes Nystagmus not present Speech: No Abnormal speech present Motor exam (neuro): Other motor observations present (Strength 5/5 upper extremities bilatera, 3/5 lower extremities bilaterally ) Sensory Exam: No Sensory deficit (Neuro) Extrem: Other: Healing skin abrasions to right anterior mancini, acute appearing skin abrasion to right medial anterior mancini Results Labs 08/28/23 05:48 08/28/23 07:44 Labs: Short CBC 08/27/23 08/28/23 Range/Units 15:01 05:48 WBC 6.2 8.1 (4.8-10.8) X10*3/uL Hgb 13.9 14.3 (12.0-16.0) g/dl Hct 47.1 H 48.8 H (37.0-47.0) % Plt Count 72 L 67 L (160-400) X10*3/uL BMP 08/27/23 08/28/23 15:01 07:44 Sodium 142 145 Potassium 3.8 4.2 Chloride 103 107 Carbon Dioxide 31 H 24 BUN 22 H 23 H Creatinine 1.20 1.33 Calcium 8.9 8.7 Liver Function 08/27/23 08/28/23 Range/Units 15:01 07:44 Total Bilirubin 1.0 1.2 H (0.0-1.0) mg/dL Direct Bilirubin 0.4 (0.0-0.5) mg/dL AST 29 29 (5-31) U/L ALT 15 14 (0-31) U/L Alkaline Phosphatase 81 77 (39-117) U/L Albumin 3.5 3.3 L (3.5-5.0) g/dL Urine 08/28/23 Range/Units 10:40 Urine Color Yellow Urine Appearance Clear Urine pH 5.5 (5.0-9.0) Ur Specific [place] >= 1.030 H (1.005-1.025) Urine Protein Trace (Neg-Trace) mg/dL Urine Glucose (UA) Negative (Negative) mg/dL Assessment and Plan (1) Acute encephalopathy: Status: Acute Encephalopathy related to pneumonia superimposed on baseline dementia. No focal neurological abnormalities or evidence of SURGICAL SALES REPRESENTATIVE infection. Imaging studies unremarkable. Recommendation hydration treatment of pneumonia. Expect gradual recovery to baseline. (2) Respiratory failure with hypoxia and hypercapnia: Qualifiers: Chronicity: acute Qualified Code(s): J96.01 - Acute respiratory failure with hypoxia; J96.02 - Acute respiratory failure with hypercapnia Status: Acute Plan Soraya Chen is 83 years old woman admitted with: * Acute encephalopathy, likely multifactorial: Hypoxia secondary to pneumonia + interstitial pulmonary edema with pericardial effusion, over-sedation secondary to benzodiazepine use causing respiratory acidosis. ?Stroke symptoms. Admit to hospitalist service. Telemetry. Continuous pulse oximetry. Supplemental O2 to keep O2 sats > 90%. Aspiration and fall precautions. NPO until swallow eval. Continue empiric IV antibiotic therapy with Zosyn. Chest CT scan to be repeated after antibiotic course (? Masslike structure). Avoid benzodiazepines or sedatives. Neurology consult for further recommendations. * Hypoxic and hypercapnic respiratory failure likely secondary to sedation, pneumonia, pulmonary edema and pericardial effusion. Respiratory acidosis resolved. Avoid sedatives. Supplemental oxygen. Start therapy with Lasix IV + IV antibiotics. * History of heart failure with moderate pericardial effusion + pulmonary edema on chest CT scan. Start treatment with Lasix IV. Check TTE. Cardiology consult. * Chronic atrial fibrillation, rate controlled. Telemetry. Unclear if patient is using rate control agents. Med rec by pharmacy pending. Eliquis on hold due to thrombocytopenia. * Thrombocytopenia, cause unclear. Hold Eliquis. Continue to monitor. * Hypothyroidism. TSH is normal. Unclear if patient is taking levothyroxine. Med rec by pharmacy pending. DVT prophylaxis: SCDs only GI prophylaxis: Protonix IV Code status: DNR/DNI (according to ED who spoke with patient's daughter). Patient will need hospitalization for at least 2 midnights for acute encephalopathy respiratory failure treatment with supplemental oxygen, diuretics and empiric IV antibiotic therapy. Procedures Date of Service Date of Service: 08/28/23
--- NOTE | 2023-08-28 15:08 | PM.EVENT ---
Event Note Date of Service: 08/28/23 Event Note: The patient was seen and evaluated this afternoon family at the bedside still difficult to arouse but reported to open eyes and engage with family in few words no reported fever or chills weaning down O2 Continue IV Zosyn pending blood cultures recurrent reorientation keep NPO until cleared by speech Time Spent With Patient Time: Total time managing care of this patient today ____ minutes.
--- NOTE | 2023-08-28 15:11 | MHC.SLORD ---
Speech Language Pathology Order Status: MACHINE CLOTH MEASURER attempted to visit pt again in afternoon. Pt accepted oral care. Did not elicit a swallow when taking trace amount of water off toothette. Pt did not accept tsp of trace amt applesauce. No further PO trials attempted d/t pt safety. MACHINE CLOTH MEASURER to attempt evaluation tomorrow AM.
[2023-08-28] MEDS: Dextrose 5 % and Lactated Ring 1,000 ML 50 ML IVCONT (15:28)
[2023-08-29] VITALS: BP 126/59; PULSE 80; RESP 18; TEMP 36.4; O2SAT 95
--- NOTE | 2023-08-29 | ECG_ITS ---
Test Reason : bradycardia Blood Pressure : / mmHG Vent. Rate : 061 BPM Atrial Rate : 000 BPM P-R Int : 000 ms QRS Dur : 080 ms QT Int : 000 ms P-R-T Axes : 000 031 057 degrees QTc Int : 000 ms Atrial fibrillation Nonspecific ST and T wave abnormality Abnormal ECG When compared with ECG of 27-AUG-2023 14:13, Nonspecific T wave abnormality now evident in Anterior leads Referred By: Cleo Morfin Electronically Signed By:OMAYRA DHILLON
[2023-08-29] MEDS: Piperacillin Sodium/Tazobactam 3.375 GM in 0.9 % Sodium Chloride 50 ML IV ×4 (01:25→18:11)
[2023-08-29 04:00] VITALS: BP 143/63; PULSE 80; RESP 18; TEMP 36.3; O2SAT 99
[2023-08-29] MEDS: Pantoprazole Sodium 40 MG/10 ML VIAL IVPUSH (05:30)
[2023-08-29 07:01] LABS: PLT CLUMP 1; Red Cell Distribution Width 16.4 % (11.0-16.0)
[2023-08-29 07:03] LABS: Hematocrit 45.9 % (37.0-47.0); Hemoglobin 13.5 g/dl (12.0-16.0); Mean Corpuscular HGB Conc 29.4 g/dl (31.0-35.0); Mean Corpuscular Hemoglobin 28.1 pg (27.0-33.0); Mean Corpuscular Volume 95.4 fL (80.0-98.0); Platelet Count 49 X10*3/uL (160-400); Red Blood Count 4.81 X10*6/uL (4.20-5.50); White Blood Count 7.4 X10*3/uL (4.8-10.8)
[2023-08-29 07:55] LABS: Anion Gap 14 (12-20); Blood Urea Nitrogen 21 mg/dL (9-16); Calcium 8.4 mg/dL (8.4-10.2); Carbon Dioxide 34 mmol/L (22-29); Chloride 104 mmol/L (96-108); Creatinine Clr Calc Pharmacy 31.5; Estimated Glomerular Filt Rate 38; Glucose Random 140 mg/dL (60-115); Sodium 149 mmol/L (135-145)
[2023-08-29 08:00] VITALS: BP 158/87; PULSE 85; RESP 20; TEMP 36.2; O2SAT 93
[2023-08-29] MEDS: 0.9 % Sodium Chloride Flush 3 ML SYRINGE IVFLUSH (10:12)
[2023-08-29] MEDS: Furosemide 20 MG/2 ML VIAL IVPUSH (10:12)
--- NOTE | 2023-08-29 10:43 | MHC.SL.SWA ---
Speech Pathologist Impression: Risk of Aspiration Due to: History of Pneumonia Reduced Cognition Dysphasia Diet Status: Liquid Consistency and Strategies for Safe Swallow: Liquid Intake Recommendation: [place] Thick Liquid Intake Strategies: Liquids by Teaspoon Only Solid Food Consistency: Dietary Recommendations: Pureed (NDD1) Additional Modifications to Solid Foods: Patient requires one to one feeding. Attempt to orient patient to food and liquids being presented. Do not attempt if patient is lethargic, her not initiate appropriate responses to presentation of food or liquid (e.g. lets liquids drip from mouth, is disruptive/agitated to being fed). Discontinue if clinical signs of aspiration are observed (coughing, throat clearing, drop in 02 sats). Liquids by tsp, no straws. Oral Medication Intake: Crushed with Puree Please contact the pharmacy regarding appropriate crushable or liquid drug formulations that are available whenever modified delivery is recommended. Compensatory Strategies and Precautions to be Taken for Safe Swallow: Sitting Upright (90 deg) No Straw Liquids from Spoon Small Bites and Sips Alternate Liquids/Solids Oral Check Supervision While Eating and Drinking for Safe Swallow: Total Assistance (1:1) Foods to Avoid: Swallowing Recommended Treatments: Compens. Strategy Educat. Recommendation for Speech: Inpatient Speech Therapy Comment: Patient was difficult to assess today due to her high level of confusion and mild agitation. Patient tolerated nectar thick liquids best by tsp, and tolerated taking trace amounts of puree only today on trials. Patient required full assistance for feeding, did not initiate any attempt to self feed despite encouragement and hand over hand assistance. Recommend START diet of Puree (NDD1) with NECTAR THICK liquids, pills crushed in puree. Patient requires one to one feeding, needs to be adequately awake and requires ample orientation to task of eating/drinking/taking medication. MAINTENANCE GROUNDMAN will continue to follow, re-assess for advancement of diet when appropriate. Frequency/Duration: M-F while inpatient. Date Range for Service Req: Timeline to reassess: Tyre Builder Clinican/Clinical Fellow: No Supervisory Statement: I have reviewed and agree with the student/clinical fellow's documentation: N/A Speech Language Pathologist: Meenakshi Coto M.A., [facility]-MAINTENANCE GROUNDMAN
[2023-08-29 12:00] VITALS: BP 158/79; PULSE 88; RESP 22; TEMP 36.6; O2SAT 95
--- NOTE | 2023-08-29 13:22 | HO.PM.IMPN ---
Subjective Subjective Date of Service: 08/29/23 Interval History: Seen and evaluated more alert and interactive Na up to 149 this morning SLIP TENDER cleared her for NDD1 diet Review of Systems Review of Systems: Yes all other systems are reviewed and are negative Physical Exam Vital Signs: Vital Signs: Last Vital Signs Temp 97.2 F 08/29/23 08:00 Pulse 85 08/29/23 08:00 Resp 20 08/29/23 08:00 BP 158/87 H 08/29/23 08:00 Pulse Ox 93 08/29/23 08:00 O2 Del Method Nasal Cannula 08/29/23 08:00 O2 Flow Rate 2 08/29/23 08:00 Oxygen Flow Rate 3 08/27/23 14:33 BMI result Body Mass Index 27.1 Const: Other: Constitutional : altered, not in distress Neck : Normal inspection, Supple Cardiovascular : RRR, no JVP, no lower extremity edema Respiratory : fair bilateral air entry, basal LLL crackles Gastrointestinal: soft, lax, Normal bowel sounds, Non tender Skin : Warm, Dry Neurological : Alert with stimulation but overall lethargic and confused, No focal deficit Objective Data Active Medications Apixaban (Apixaban 5 Mg Tablet) 5 mg PO BID@00,1999 [facility] Last Admin: 08/29/23 10:22 Dose: Not Given Documented By: STEPHAN Non-Admin Reason: Patient Refused Furosemide (Furosemide 20 Mg/2 Ml Vial) 20 mg IVPUSH DAILY [facility]; Protocol Last Admin: 08/29/23 10:12 Dose: 20 mg Documented By: STEPHAN Piperacillin Sod/Tazobactam (Sod 3.375 gm/ Sodium Chloride) 50 mls @ 100 mls/hr IV Q6H [facility] Last Admin: 08/29/23 12:28 Dose: 100 mls/hr Documented By: STEPHAN Levothyroxine Sodium (Levothyroxine Sodium 125 Mcg Tablet) 62.5 mcg PO DAILY@0700 [facility] Last Admin: 08/29/23 10:21 Dose: Not Given Documented By: STEPHAN Non-Admin Reason: Patient Refused Metoprolol Tartrate (Metoprolol Tartrate 25 Mg Tablet) 25 mg PO BID@799,1999 [facility]; Protocol Last Admin: 08/29/23 10:22 Dose: Not Given Documented By: STEPHAN Non-Admin Reason: Patient Refused Pantoprazole Sodium (Pantoprazole Sodium 40 Mg/10 Ml Vial) 40 mg IVPUSH DAILY@0630 [facility] Last Admin: 08/29/23 05:30 Dose: 40 mg Documented By: LEXIE Sodium Chloride (0.9 % Sodium Chloride Flush 3 Ml Syringe) 3 ml IVFLUSH QSHIFT [facility] Last Admin: 08/29/23 10:12 Dose: 3 ml Documented By: PHANLYM Labs 08/29/23 06:42 08/29/23 06:42 Labs: Laboratory Results - last 24 hr 08/29/23 06:42 MCV 95.4 MCH 28.1 MCHC 29.4 L RDW 16.4 H Plt Count 49 L D MPV 11.0 Absolute Nucleated RBC 0.000 Nucleated RBC % (auto) 0.0 Anion Gap 14 Estim Creat Clear Calc 31.5 Estimated GFR 38 Random Glucose 140 H Calcium 8.4 Microbiology Microbiology Results: Microbiology 08/27/23 23:57 Blood Culture - Preliminary Blood - Venous No growth after 24 hours. 08/27/23 23:58 Blood Culture - Preliminary Blood - Venous No growth after 24 hours. Assessment and Plan (1) Respiratory failure with hypoxia and hypercapnia: Status: Acute (2) Acute encephalopathy: Status: Acute (3) Acute hypernatremia: Status: Acute (4) Acute hypokalemia: Status: Acute Plan Soraya Chen is 83 years old woman admitted with: # Acute toxic metabolic encephalopathy 2/2 infection Treat pneumonia Fix hypernatremia recurret reorientation SLIP TENDER rec NDD1 Neurology consulted # Acute Hypernatermia Na 149 this morning Start D5W follow BMP # Hypoxic and hypercapnic respiratory failure likely secondary to pneumonia + fluid overload over-sedation secondary to benzodiazepine use causing respiratory acidosis. Telemetry. pulse oximetry. Supplemental O2 to keep O2 sats > 90%. Aspiration and fall precautions. empiric IV antibiotic therapy with Zosyn Chest CT scan to be repeated after antibiotic course to recheck for possible mass # History of heart failure with moderate pericardial effusion + pulmonary edema on chest CT scan. Hold anymore Lasix IV. Check TTE. Cardiology consult. # Chronic atrial fibrillation, rate controlled. Telemetry. Eliquis on hold due to thrombocytopenia. # Thrombocytopenia, cause unclear. Hold Eliquis. Continue to monitor. # Hypothyroidism. TSH is normal. Unclear if patient is taking levothyroxine. Med rec by pharmacy pending. DVT prophylaxis: SCDs only GI prophylaxis: Protonix IV Code status: DNR/DNI Patient will need hospitalization overnight for acute encephalopathy respiratory failure treatment with supplemental oxygen and empiric IV antibiotic therapy. Quality Stroke Does the patient have a stroke diagnosis?: No VTE Prior VTE?: No VTE Risk Level:: Medical - moderate - high VTE Device Contraindication: Treatment Not Indicated VTE Drug Contraindication: N/A - Med Ordered
[2023-08-29] MEDS: KCl 20 mEq in 5 % Dextrose 20 MEQ/1,000 ML IV.SOLN 125 MEQ IVCONT (13:46)
[2023-08-29] MEDS: Potassium Chloride/H20 10 MEQ/100 ML PIGGYBACK 100 MEQ IV ×2 (13:51→15:33)
[2023-08-29 14:52] LABS: Anion Gap 13 (12-20); Blood Urea Nitrogen 20 mg/dL (9-16); Calcium 8.9 mg/dL (8.4-10.2); Carbon Dioxide 37 mmol/L (22-29); Chloride 105 mmol/L (96-108); Creatinine Clr Calc Pharmacy 32.1; Estimated Glomerular Filt Rate 39; Glucose Random 176 mg/dL (60-115); Potassium 3.5 mmol/L (3.3-5.1); Sodium 151 mmol/L (135-145)
[2023-08-29 16:00] VITALS: BP 142/71; PULSE 76; RESP 16; TEMP 36.4; O2SAT 96
[2023-08-29] MEDS: Ketorolac Tromethamine 15 MG/ML VIAL IVPUSH (17:08)
[2023-08-29] MEDS: Haloperidol Lactate 5 MG/ML VIAL IM (20:22)
[2023-08-29 23:05] VITALS: BP 163/70; PULSE 68; RESP 16; TEMP 36.1; O2SAT 96
[2023-08-29 23:31] LABS: MANUAL DIFF FLAG NO
[2023-08-29 23:33] LABS: Venous Blood Gas Refer to POC result
[2023-08-29 23:34] LABS: Basophils Percent Auto 0.3 % (0-2); Eosinophils Absolute Auto 0.1 X10*3/uL (0.0-0.4); Hemoglobin 12.3 g/dl (12.0-16.0); Imm Gran Abs Auto 0.04 X10*3/uL (0.00-0.03); Imm Gran Pct Auto 0.6 % (0.0-0.4); Lymphocytes Absolute Auto 0.3 X10*3/uL (1.2-4.9); Lymphocytes Percent Auto 3.7 % (20-40); Mean Corpuscular HGB Conc 30.8 g/dl (31.0-35.0); Mean Corpuscular Hemoglobin 28.6 pg (27.0-33.0); Mean Platelet Volume 11.2 fL (9.4-12.3); Monocytes Absolute Auto 0.8 X10*3/uL (0.1-1.2); Neutrophils Absolute Auto 5.8 x10*3/uL (2.0-8.3); Neutrophils Percent Auto 82.4 % (45-73); Platelet Count 46 X10*3/uL (160-400); Red Cell Distribution Width 16.3 % (11.0-16.0)
[2023-08-29 23:38] LABS: VBG Base Excess 14.6 mmol/L; VBG HCO3 41 mmol/L (22-26); VBG pCO2 59 mmHg; VBG pH 7.45 (7.32-7.43); VBG pO2 77 mmHg
[2023-08-29 23:49] LABS: Alanine Aminotransferase 9 U/L (0-31); Albumin Level 2.9 g/dL (3.5-5.0); Alkaline Phosphatase 57 U/L (39-117); Anion Gap 14 (12-20); Aspartate Amino Transferase 24 U/L (5-31); Blood Urea Nitrogen 22 mg/dL (9-16); Calcium 8.7 mg/dL (8.4-10.2); Carbon Dioxide 33 mmol/L (22-29); Chloride 105 mmol/L (96-108); Creatinine Clr Calc Pharmacy 36.3; Estimated Glomerular Filt Rate 45; Glucose Random 144 mg/dL (60-115); Magnesium 2.1 mg/dL (1.6-2.6); Potassium 3.1 mmol/L (3.3-5.1); Sodium 149 mmol/L (135-145); Total Protein 6.4 g/dL (6.5-8.0)
[2023-08-29 23:56] LABS: Troponin-I High Sensitivity 21.9 ng/L (<3.5-17.0)
[2023-08-30] VITALS (8 sets, daily range): BP systolic 110–179; BP diastolic 55–92; PULSE 55–91; RESP 18–22; TEMP 36.4–36.8; O2SAT 93–98
[2023-08-30] MEDS: Piperacillin Sodium/Tazobactam 3.375 GM in 0.9 % Sodium Chloride 50 ML IV ×5 (00:12→23:58)
[2023-08-30] MEDS: KCl 40 mEq in 5% Dex/0.45% Sod 40 MEQ/1,000 ML IV.SOLN 125 MEQ IVCONT (00:27)
--- NOTE | 2023-08-30 03:40 | PC.NURSE ---
Addendum entered by Richard Georges RN 08/30/23 06:32: 0630: speaking with daughter at bedside discussing labs (K, Na, Trop), pt health status, goals. Original Note: pt refusing vitals, scheduled metoprolol+eliquis, and all care around 193. around 1999, pt pulled out one of two IV's that was infusing 20 mEq K/D5W. pt arm bleeding onto shirt and blanket. this nurse attempted to dress the bleeding site and was met by patient screaming to leave her alone and to not touch her. pt alert to self. confused, forgetful, agitated. pt remains on telemetry with heartrate at baseline, occasionally increasing then quickly returning. made aware. IM Haldol ordered and administered at 2023. pt ceases with screaming and agitation around 2099. continues to refuses care when approached. MD made aware again. this RN instructed to allow for a couple hours to transpire before reinititating care. at about 2229, pt calm with pt daughter at bedside. while sleeping, pt's heart rate seen on monitor very briefly hitting mid 30s afib then returning to baseline in 70-80s range. no apparent change to pt on observation and pt denies complaints. daughter denies observing anything abnormal. around 2299, with assistance from pt daughter to ease patient, VBG, CBC, BMP, Troponin, EKG, vitals obtained. visualized EKG and made aware of labs. plan to change fluids to 40 mEq K/D5/.45NS, redraw troponin in am. pt calm with eyes closed in semi fowlers position. even, unlabored respirations. no distress signs on observation. call cotter in reach. daughter expresses no further concern at this time. education provided to daughter about plan of care and medications given. plan of care ongoing
[2023-08-30 05:42] LABS: PLT CLUMP 1; Red Blood Count 4.58 X10*6/uL (4.20-5.50)
[2023-08-30 05:43] LABS: Hematocrit 43.6 % (37.0-47.0); Hemoglobin 12.9 g/dl (12.0-16.0); Mean Corpuscular HGB Conc 29.6 g/dl (31.0-35.0); Mean Corpuscular Hemoglobin 28.2 pg (27.0-33.0); Mean Corpuscular Volume 95.2 fL (80.0-98.0); Mean Platelet Volume 11.4 fL (9.4-12.3); Red Cell Distribution Width 16.5 % (11.0-16.0)
[2023-08-30 05:45] LABS: Platelet Count 41 X10*3/uL (160-400); White Blood Count 6.2 X10*3/uL (4.8-10.8)
[2023-08-30] MEDS: Pantoprazole Sodium 40 MG/10 ML VIAL IVPUSH (05:58)
[2023-08-30 06:11] LABS: Anion Gap 11 (12-20); Blood Urea Nitrogen 22 mg/dL (9-16); Calcium 8.7 mg/dL (8.4-10.2); Carbon Dioxide 34 mmol/L (22-29); Chloride 105 mmol/L (96-108); Creatinine Clr Calc Pharmacy 32.9; Estimated Glomerular Filt Rate 40; Glucose Random 188 mg/dL (60-115); Potassium 3.8 mmol/L (3.3-5.1); Sodium 146 mmol/L (135-145)
[2023-08-30 06:15] LABS: Troponin-I High Sensitivity 17.5 ng/L (<3.5-17.0)
--- NOTE | 2023-08-30 06:43 | PM.EVENT ---
Event Note Date of Service: 08/30/23 Event Note: 8:03 PM - contacted to notify patient is very confused, emotional and yelling out. She was refusing all care, pull out her IV access (bleeding all over bed). Haldol 5 mg IM x1 given. !0:35 PM - heart rate touch down into the 30s and then quickly backup to normal rate. ECG stat obtained (08/29/2023-23:12) - atrial fibrillation, heart rate 61 beats per minutes. QTC prolonged [address] wave changes. 11:24 PM - vital signs: temp 97.0 degrees, heart rate 68 beats per minute, respiratory rate 16, BP 163/70, O2 sat 96% on 1 L/min nasal cannula. Labs stat obtained: Remarkable for elevated sodium but decreasing, 151 --> 149. Hypokalemia 3.1, CO2 34, glucose 188. Troponin 21.9. Venous blood gas pH 7.45, pCO2 59. 12:15 AM: IV fluids switched to D5/0.45SS/40 mEq KCl 125 ml/hr 6:10 AM: Patient evaluated. She has been resting comfortable since Haldol administration. AM labs remarkable for improving sodium level. IVFs decreased to 80 ml/hr. Will recheck lytes at 11 AM. Time Spent With Patient Time: Total time managing care of this patient today ____ minutes.
--- NOTE | 2023-08-30 08:00 | ECG_ITS ---
Test Reason : qtc check Blood Pressure : / mmHG Vent. Rate : 075 BPM Atrial Rate : 000 BPM P-R Int : 000 ms QRS Dur : 074 ms QT Int : 410 ms P-R-T Axes : 000 028 -28 degrees QTc Int : 457 ms Atrial fibrillation Nonspecific T wave abnormality Abnormal ECG When compared with ECG of 29-AUG-2023 23:12, No significant changes seen Referred By: Cleo Morfin Electronically Signed By:OMAYRA DHILLON
[2023-08-30] MEDS: KCl 40 mEq in 5% Dex/0.45% Sod 40 MEQ/1,000 ML IV.SOLN 80 MEQ IVCONT (09:51)
--- NOTE | 2023-08-30 10:14 | MHC.CM.PN ---
Per ROUNDS discussion, Patient is not yet medically cleared for dc (confused/delirious,treating PNA); Patient may benefit from a PT Eval to assist with disposition. CM will follow.
[2023-08-30 11:43] LABS: Potassium 3.9 mmol/L (3.3-5.1); Sodium 148 mmol/L (135-145)
--- NOTE | 2023-08-30 12:38 | P.CDIM_ITS ---
PROVIDER RESPONSE TEXT: To clarify, the appropriate diagnosis supported by the clinical indicators: Pressure injury coccyx Stage 1 QUERY TEXT: PHYSICIAN'S DOCUMENTATION REQUEST Date of Query: 08/29/2023 07:53 AM EDT Patient Name: Soraya Chen Admit Date: 08/28/2023 Dear Sterling Velasquez, A review of the medical record indicates additional documentation may be needed. Please review below and update the documentation accordingly. Clinical Indicators: Wound care notes: Pressure injury Stage 1 coccyx Foam dressing Based on the above, could you please provide further information regarding the ulcer/wound/injury: Pressure injury coccyx Stage 1 Other Other (explain) Clinically unable to determine (explain) Thank you, Rachel Carrington, CCS, CDIS Use of terms such as suspected, likely, concern for, or probable (associated with a specific diagnosi s that is being evaluated, monitored, or treated as if it exists) are acceptable and can be coded in the inpatient se tting, when documented at the time of discharge. Please use your independent medical judgment in providing your response. THIS QUERY IS PART OF THE PERMANENT MEDICAL RECORD
--- NOTE | 2023-08-30 12:38 | P.CDIM_ITS ---
PROVIDER RESPONSE TEXT: To clarify, the appropriate diagnosis supported by the clinical indicators: Respiratory failure with hypoxia and hypercapnia: acute QUERY TEXT: PHYSICIAN'S DOCUMENTATION REQUEST Date of Query: 08/30/2023 07:40 AM EDT Patient Name: Soraya Chen Admit Date: 08/28/2023 Dear Sterling Velasquez, A review of the medical record indicates additional documentation may be needed. Please review below and update the documentation accordingly. Clinical Indicators: Progress note: Hypoxic and hypercapnic respiratory failure likely secondary to pneumonia and fluid overload Supplemental O2 to keep O2 sats > 90% If possible, please further clarify the acuity of the noted hypoxic and hypercapnic respiratory failu re within the body of the progress note: Respiratory failure with hypoxia and hypercapnia Please specify acuity as Acute, Chronic, or Acute on chronic if known Other (explain) Clinically unable to determine (explain) Thank you, Rachel Carrington, CCS, CDIS Use of terms such as suspected, likely, concern for, or probable (associated with a specific diagnosi s that is being evaluated, monitored, or treated as if it exists) are acceptable and can be coded in the inpatient se tting, when documented at the time of discharge. Please use your independent medical judgment in providing your response. THIS QUERY IS PART OF THE PERMANENT MEDICAL RECORD
--- NOTE | 2023-08-30 12:41 | P.CDIM_ITS ---
PROVIDER RESPONSE TEXT: To clarify, the appropriate diagnosis supported by the clinical indicators: Acute on chronic QUERY TEXT: PHYSICIAN'S DOCUMENTATION REQUEST Date of Query: 08/30/2023 07:44 AM EDT Patient Name: Soraya Chen Admit Date: 08/28/2023 Dear Sterling Velasquez, A review of the medical record indicates additional documentation may be needed. Please review below and update the documentation accordingly. Clinical Indicators: Progress note within the plan: History of heart failure with moderate pericardial effusion and pulmon monica edema on chest CT scan. Hold anymore Lasix IV. Check TTE Clarify which of the following accurately represents the acuity of the Pulmonary edema: Acute Acute on chronic Other (explain) Clinically unable to determine (explain) Thank you, Rachel Carrington, CCS, CDIS Use of terms such as suspected, likely, concern for, or probable (associated with a specific diagnosi s that is being evaluated, monitored, or treated as if it exists) are acceptable and can be coded in the inpatient se tting, when documented at the time of discharge. Please use your independent medical judgment in providing your response. THIS QUERY IS PART OF THE PERMANENT MEDICAL RECORD
--- NOTE | 2023-08-30 12:58 | HO.PM.IMPN ---
Subjective Subjective Date of Service: 08/30/23 Interval History: Seen and evaluated less alert and interactive had rought night with increase agitation and restlessness Na up to 148 this morning Pending OUTDOOR ADVENTURE INSTRUCTOR eval Review of Systems Review of Systems: Yes all other systems are reviewed and are negative Physical Exam Vital Signs: Vital Signs: Last Vital Signs Temp 97.8 F 08/30/23 11:17 Pulse 85 08/30/23 11:17 Resp 20 08/30/23 11:17 BP 179/92 H 08/30/23 11:17 Pulse Ox 98 08/30/23 11:17 O2 Del Method Nasal Cannula 08/30/23 11:17 O2 Flow Rate 1 08/30/23 11:17 Oxygen Flow Rate 3 08/27/23 14:33 BMI result Body Mass Index 27.1 Const: Other: Constitutional : more sleepy and altered, not in distress Neck : Normal inspection, Supple Cardiovascular : RRR, no JVP, no lower extremity edema Respiratory : fair bilateral air entry, basal LLL crackles Gastrointestinal: soft, lax, Normal bowel sounds, Non tender Skin : Warm, Dry Neurological : Alert with stimulation but overall lethargic and confused, No focal deficit Objective Data Active Medications Acetaminophen (Acetaminophen 325 Mg Tablet) 650 mg PO Q6H PRN PRN Reason: Pain, Mild (Pain Scale 1-3) Acetazolamide (Acetazolamide 250 Mg Tablet) 125 mg PO BID@0800,[facility] Apixaban (Apixaban 5 Mg Tablet) 5 mg PO BID@0800,1999 [facility] Last Admin: 08/30/23 08:55 Dose: Not Given Documented By: MALINI Non-Admin Reason: NPO Aspirin (Aspirin Enteric Coated 81 Mg Tablet.Dr) 81 mg PO DAILY@0800 [facility] Atorvastatin Calcium (Atorvastatin Calcium 40 Mg Tablet) 40 mg PO DAILY@1999 [facility] Clonazepam (Clonazepam 0.5 Mg Tablet) 0.5 mg PO BEDTIME PRN PRN Reason: Anxiety Hydralazine HCl (Hydralazine Hcl 10 Mg Tablet) 10 mg PO TID@0800,1500,1999 [facility]; Protocol Piperacillin Sod/Tazobactam (Sod 3.375 gm/ Sodium Chloride) 50 mls @ 100 mls/hr IV Q6H [facility] Last Infusion: 08/30/23 07:19 Dose: Infused Documented By: HO.LAFLAMC Potassium Chloride/Dextrose/Sod Cl (Kcl 40 Meq In 5% Dex/0.45% Sod) 40 meq in 1,000 mls @ 80 mls/hr IVCONT .[id number] [facility] Last Admin: 08/30/23 09:51 Dose: 80 mls/hr Documented By: MALINI Ketorolac Tromethamine (Ketorolac Tromethamine 15 Mg/Ml Vial) 15 mg IVPUSH ONCE PRN PRN Reason: Pain, Severe (Pain Scale 7-10) Last Admin: 08/29/23 17:08 Dose: 15 mg Documented By: STEPHAN Levothyroxine Sodium (Levothyroxine Sodium 125 Mcg Tablet) 62.5 mcg PO DAILY@0700 [facility] Last Admin: 08/30/23 08:55 Dose: Not Given Documented By: MALINI Non-Admin Reason: NPO Metoprolol Tartrate (Metoprolol Tartrate 25 Mg Tablet) 25 mg PO BID@0800,2000 [facility]; Protocol Last Admin: 08/30/23 08:55 Dose: Not Given Documented By: MALINI Non-Admin Reason: NPO Oxybutynin Chloride (Oxybutynin Chloride Er 5 Mg Tab.Er.24) 10 mg PO DAILY@0800 [facility] Pantoprazole Sodium (Pantoprazole Sodium 40 Mg/10 Ml Vial) 40 mg IVPUSH DAILY@0630 [facility] Last Admin: 08/30/23 05:58 Dose: 40 mg Documented By: LEXIE Potassium Chloride (Potassium Chloride Er 20 Meq Tab.Er.Prt) 20 meq PO SUMOTUWEFRSA@1500 [facility] Potassium Chloride (Potassium Chloride Er 20 Meq Tab.Er.Prt) 40 meq PO TH@1500 [facility] Sodium Chloride (0.9 % Sodium Chloride Flush 3 Ml Syringe) 3 ml IVFLUSH QSHIFT [facility] Last Admin: 08/30/23 08:55 Dose: Not Given Documented By: MALINI Non-Admin Reason: IV Running Labs 08/30/23 05:30 08/30/23 11:26 Labs: Laboratory Results - last 24 hr 08/29/23 08/29/23 08/29/23 14:20 23:23 23:29 MCV 93.0 MCH 28.6 MCHC 30.8 L RDW 16.3 H Plt Count 46 L MPV 11.2 Immature Gran % (Auto) 0.6 H Neut % (Auto) 82.4 H Lymph % (Auto) 3.7 L [place] % (Auto) 12.0 H Eos % (Auto) 1.0 Baso % (Auto) 0.3 Lymph # (Auto) 0.3 L [place] # (Auto) 0.8 Eos # (Auto) 0.1 Baso # (Auto) 0.0 Abs Immat Gran (auto) 0.04 H Absolute Neuts (auto) 5.8 Absolute Nucleated RBC 0.000 Nucleated RBC % (auto) 0.0 VBG pH 7.45 H VBG pCO2 59 VBG pO2 77 VBG HCO3 41 H VBG O2 Saturation 97.0 VBG Base Excess 14.6 Anion Gap 13 14 Estim Creat Clear Calc 32.1 36.3 Estimated GFR 39 45 Random Glucose 176 H 144 H Calcium 8.9 8.7 Magnesium 2.1 Total Bilirubin 2.0 H AST 24 ALT 9 Alkaline Phosphatase 57 Troponin I High Sens 21.9 H D Total Protein 6.4 L Albumin 2.9 L 08/30/23 05:30 MCV 95.2 MCH 28.2 MCHC 29.6 L RDW 16.5 H Plt Count 41 L MPV 11.4 Immature Gran % (Auto) Neut % (Auto) Lymph % (Auto) [place] % (Auto) Eos % (Auto) Baso % (Auto) Lymph # (Auto) [place] # (Auto) Eos # (Auto) Baso # (Auto) Abs Immat Gran (auto) Absolute Neuts (auto) Absolute Nucleated RBC 0.000 Nucleated RBC % (auto) 0.0 VBG pH VBG pCO2 VBG pO2 VBG HCO3 VBG O2 Saturation VBG Base Excess Anion Gap 11 L Estim Creat Clear Calc 32.9 Estimated GFR 40 Random Glucose 188 H Calcium 8.7 Magnesium Total Bilirubin AST ALT Alkaline Phosphatase Troponin I High Sens 17.5 H Total Protein Albumin Microbiology Microbiology Results: Microbiology 08/27/23 23:57 Blood Culture - Preliminary Blood - Venous No growth after 48 hours. 08/27/23 23:58 Blood Culture - Preliminary Blood - Venous No growth after 48 hours. Assessment and Plan (1) Acute hypokalemia: Status: Acute (2) Acute hypernatremia: Status: Acute (3) Respiratory failure with hypoxia and hypercapnia: Status: Acute (4) Toxic metabolic encephalopathy: Status: Acute (5) Congestive heart failure: Status: Acute Plan Soraya Chen is 83 years old woman admitted with: # Acute toxic metabolic encephalopathy 2/2 infection , hypernatremia and inpatient delerium recurrent reorientation Seroquel ATC and PRN bedtime Treat pneumonia Fix hypernatremia OUTDOOR ADVENTURE INSTRUCTOR to follow Neurology consulted # Acute Hypernatermia Na 148 this morning Start D5W w KCL follow BMP # acute Hypoxic and hypercapnic respiratory failure likely secondary to pneumonia + acute on chronic CHF hypoxia resolving Aspiration and fall precautions. Continue Zosyn Chest CT scan to be repeated after antibiotic course to recheck for possible mass # History of heart failure with moderate pericardial effusion + pulmonary edema on chest CT scan. Hold anymore Lasix IV. TTE showing EF >70%, , mod pulm HTN with small pericardial effusion. IVC collapses with inspiration: dehydrated. Cardiology consulted # Chronic atrial fibrillation, rate controlled. Telemetry. Eliquis on hold due to thrombocytopenia. # Thrombocytopenia, cause unclear. Hold Eliquis. Continue to monitor. # Hypothyroidism. TSH is normal. levothyroxine DVT prophylaxis: SCDs GI prophylaxis: Protonix IV Code status: DNR/DNI Patient will need hospitalization overnight for acute encephalopathy respiratory failure treatment with supplemental oxygen and empiric IV antibiotic therapy and correction of hyponatremia pending improvement in mental status. Quality Stroke Does the patient have a stroke diagnosis?: No VTE Prior VTE?: No VTE Risk Level:: Medical - moderate - high VTE Device Contraindication: Treatment Not Indicated VTE Drug Contraindication: N/A - Med Ordered
[2023-08-30] MEDS: Ketorolac Tromethamine 15 MG/ML VIAL IVPUSH (13:24)
[2023-08-30] MEDS: hydrALAZINE HCl 20 MG/ML VIAL 5 MG IVPUSH (13:25)
[2023-08-30] MEDS: KCl 20 mEq in 5 % Dextrose 20 MEQ/1,000 ML IV.SOLN 125 MEQ IVCONT ×2 (13:26→23:56)
--- NOTE | 2023-08-30 13:57 | ECG_ITS ---
Test Reason : cp Blood Pressure : / mmHG Vent. Rate : 085 BPM Atrial Rate : 000 BPM P-R Int : 000 ms QRS Dur : 066 ms QT Int : 360 ms P-R-T Axes : 000 012 202 degrees QTc Int : 428 ms Atrial fibrillation Low voltage QRS Cannot rule out Anterior infarct , age undetermined Abnormal ECG When compared with ECG of 30-AUG-2023 08:24, No significant changes seen Referred By: Sterling Velasquez Electronically Signed By:OMAYRA DHILLON
[2023-08-30 14:08] LABS: Triiodothyronine T3 Total 70 ng/dL (76-181)
--- NOTE | 2023-08-30 14:10 | MHC.SL.SWA ---
Speech Pathologist Impression: Risk of aspiration, oropharyngeal dysphagia Risk of Aspiration Due to: History of Pneumonia Reduced Cognition Dysphasia Diet Status: Continue NPO Liquid Consistency and Strategies for Safe Swallow: Liquid Intake Recommendation: NPO Solid Food Consistency: Dietary Recommendations: NPO Additional Modifications to Solid Foods: Per MD, patient to be kept NPO until mentation improves. Continue with frequent oral care for hygiene and comfort. QUARTER SECTION IRONER plan to re-evaluate Saturday morning, if consult is needed before then, QUARTER SECTION IRONER is available for call-in Saturday 9am-11am. MD notified. Oral Medication Intake: NPO Please contact the pharmacy regarding appropriate crushable or liquid drug formulations that are available whenever modified delivery is recommended. Supervision While Eating and Drinking for Safe Swallow: PO with QUARTER SECTION IRONER Recommendation for Speech: Inpatient Speech Therapy Frequency/Duration: M-F while inpatient. Date Range for Service Req: Timeline to reassess: Waxing Machine Operator Clinican/Clinical Fellow: No Supervisory Statement: I have reviewed and agree with the student/clinical fellow's documentation: N/A Speech Language Pathologist: Tiffanie Zamorano M.A., CCC-QUARTER SECTION IRONER
--- NOTE | 2023-08-30 18:44 | PC.NURSE ---
Patient having very little urine output this afternoon, Purewick in place but dry. Patient repositioned and pad was dry, bladder scanned and showed 415ml. Per MD straight cath. and recheck bladder scan qshift
--- NOTE | 2023-08-30 19:59 | PC.NURSE ---
Per MD orders, straight cath patient. Patient straight cathed at 1730 and this RN drained 550 mls. Patient tolerated well, all other needs met at this time. Call cotter within reach
[2023-08-30] MEDS: Acetaminophen 1,000 MG/100 ML PIGGYBACK 400 MG IV (20:59)
[2023-08-30] MEDS: 0.9 % Sodium Chloride Flush 3 ML SYRINGE IVFLUSH (21:06)
[2023-08-31] VITALS (9 sets, daily range): BP systolic 114–182; BP diastolic 60–87; PULSE 75–97; RESP 16–20; TEMP 36.2–36.5; O2SAT 96–100
[2023-08-31] LABS: Anion Gap 10 (12-20); Blood Urea Nitrogen 18 mg/dL (9-16); Calcium 8.5 mg/dL (8.4-10.2); Carbon Dioxide 32 mmol/L (22-29); Chloride 105 mmol/L (96-108); Estimated Glomerular Filt Rate 47; Glucose Random 150 mg/dL (60-115); Potassium 3.7 mmol/L (3.3-5.1); Sodium 143 mmol/L (135-145)
[2023-08-31] MEDS: Pantoprazole Sodium 40 MG/10 ML VIAL IVPUSH (05:58)
[2023-08-31] MEDS: Piperacillin Sodium/Tazobactam 3.375 GM in 0.9 % Sodium Chloride 50 ML IV ×3 (05:59→18:43)
[2023-08-31 07:16] LABS: Hematocrit 40.4 % (37.0-47.0); Mean Corpuscular HGB Conc 29.7 g/dl (31.0-35.0); Mean Corpuscular Hemoglobin 28.4 pg (27.0-33.0); Mean Corpuscular Volume 95.7 fL (80.0-98.0); Mean Platelet Volume 11.8 fL (9.4-12.3); Red Blood Count 4.22 X10*6/uL (4.20-5.50); Red Cell Distribution Width 16.4 % (11.0-16.0); White Blood Count 5.6 X10*3/uL (4.8-10.8)
[2023-08-31 07:17] LABS: Platelet Count 36 X10*3/uL (160-400)
[2023-08-31 07:57] LABS: Anion Gap 12 (12-20); Blood Urea Nitrogen 18 mg/dL (9-16); Calcium 8.3 mg/dL (8.4-10.2); Carbon Dioxide 28 mmol/L (22-29); Chloride 104 mmol/L (96-108); Estimated Glomerular Filt Rate 48; Glucose Random 154 mg/dL (60-115); Sodium 140 mmol/L (135-145)
[2023-08-31] MEDS: KCl 20 mEq in 5 % Dextrose 20 MEQ/1,000 ML IV.SOLN 125 MEQ IVCONT (11:53)
--- NOTE | 2023-08-31 13:09 | P.PNIM_ITS ---
Subjective Subjective Date of Service: 08/31/23 Interval History: Seen and evaluated more alert and interactive today less agitation and restlessness overnight Na corrected to 140 this morning failed RETIREMENT ASSISTANT eval Physical Exam 2 Vital Signs: Vital Signs: Last Vital Signs Temp 97.6 F 08/31/23 11:46 Pulse 82 08/31/23 11:46 Resp 20 08/31/23 11:46 BP 121/69 08/31/23 11:46 Pulse Ox 96 08/31/23 11:46 O2 Del Method Nasal Cannula 08/31/23 11:46 O2 Flow Rate 1 08/31/23 11:46 Oxygen Flow Rate 3 08/27/23 14:33 BMI result Body Mass Index 27.1 Const: Other: Constitutional : more alert, not in distress Neck : Normal inspection, Supple Cardiovascular : RRR, no JVP, no lower extremity edema Respiratory : fair bilateral air entry, basal LLL crackles Gastrointestinal: soft, lax, Normal bowel sounds, Non tender Skin : Warm, Dry Neurological : Alert and interactive but overall lethargic and mildly confused, No focal deficit Objective Data Active Medications Acetazolamide (Acetazolamide 250 Mg Tablet) 125 mg PO BID@799,1999 [facility] Last Admin: 08/30/23 23:31 Dose: Not Given Documented By: ALIYA Non-Admin Reason: NPO Apixaban (Apixaban 5 Mg Tablet) 5 mg PO BID@799,1999 [facility] Last Admin: 08/30/23 23:32 Dose: Not Given Documented By: ALIYA Non-Admin Reason: NPO Aspirin (Aspirin Enteric Coated 81 Mg Tablet.) 81 mg PO DAILY@799 [facility] Atorvastatin Calcium (Atorvastatin Calcium 40 Mg Tablet) 40 mg PO DAILY@1999 [facility] Last Admin: 08/30/23 23:32 Dose: Not Given Documented By: ALIYA Non-Admin Reason: NPO Clonazepam (Clonazepam 0.5 Mg Tablet) 0.5 mg PO BEDTIME PRN PRN Reason: Anxiety Hydralazine HCl (Hydralazine Hcl 10 Mg Tablet) 10 mg PO TID@0800,1499,1999 [facility]; Protocol Last Admin: 08/30/23 23:32 Dose: Not Given Documented By: ALIYA Non-Admin Reason: NPO Piperacillin Sod/Tazobactam (Sod 3.375 gm/ Sodium Chloride) 50 mls @ 100 mls/hr IV Q6H [facility] Last Infusion: 08/31/23 06:34 Dose: Infused Documented By: ALIYA Potassium Chloride/Dextrose (Kcl 20 Meq In 5 % Dextrose) 20 meq in 1,000 mls @ 75 mls/hr IVCONT .[id number] [facility] Last Admin: 08/31/23 11:53 Dose: 125 mls/hr Documented By: SOURAV Ketorolac Tromethamine (Ketorolac Tromethamine 15 Mg/Ml Vial) 15 mg IVPUSH ONCE PRN PRN Reason: Pain, Severe (Pain Scale 7-10) Last Admin: 08/29/23 17:08 Dose: 15 mg Documented By: STEPHAN Levothyroxine Sodium (Levothyroxine Sodium 125 Mcg Tablet) 62.5 mcg PO DAILY@0700 [facility] Last Admin: 08/31/23 06:03 Dose: Not Given Documented By: ALIYA Non-Admin Reason: NPO Metoprolol Tartrate (Metoprolol Tartrate 25 Mg Tablet) 25 mg PO BID@0800,2000 [facility]; Protocol Last Admin: 08/30/23 23:33 Dose: Not Given Documented By: ALIYA Non-Admin Reason: NPO Oxybutynin Chloride (Oxybutynin Chloride Er 5 Mg Tab.Er.24) 10 mg PO DAILY@0800 [facility] Potassium Chloride (Potassium Chloride Er 20 Meq Tab.Er.Prt) 20 meq PO SUMOTUWEFRSA@1500 [facility] Last Admin: 08/30/23 17:44 Dose: Not Given Documented By: MALINI Non-Admin Reason: NPO Potassium Chloride (Potassium Chloride Er 20 Meq Tab.Er.Prt) 40 meq PO TH@1500 [facility] Quetiapine Fumarate (Quetiapine Fumarate 25 Mg Tablet) 25 mg PO ONCE PRN PRN Reason: anxiety/restlessness Sodium Chloride (0.9 % Sodium Chloride Flush 3 Ml Syringe) 3 ml IVFLUSH QSHIFT [facility] Last Admin: 08/30/23 21:06 Dose: 3 ml Documented By: ALIYA Labs 08/31/23 06:05 08/31/23 06:05 Labs: Laboratory Results - last 24 hr 08/27/23 08/30/23 08/31/23 15:01 23:27 06:05 MCV 95.7 MCH 28.4 MCHC 29.7 L RDW 16.4 H Plt Count 36 L MPV 11.8 Absolute Nucleated RBC 0.000 Nucleated RBC % (auto) 0.0 Hold Purple Top SEE NOTE Anion Gap 10 L 12 Estim Creat Clear Calc 38.0 39.0 Estimated GFR 47 48 Random Glucose 150 H 154 H Calcium 8.5 8.3 L Total T3 70 L Assessment and Plan (1) Congestive heart failure: Status: Acute (2) Toxic metabolic encephalopathy: Status: Acute (3) Acute hypokalemia: Status: Acute (4) Acute hypernatremia: Status: Acute (5) Respiratory failure with hypoxia and hypercapnia: Status: Acute Plan Soraya Chen is 83 years old woman admitted with: # Acute toxic metabolic encephalopathy 2/2 infection , hypernatremia and inpatient delerium recurrent reorientation Seroquel PRN improved pneumonia treating hypernatremia RETIREMENT ASSISTANT to follow Neurology consulted # Acute Hypernatermia Na 140 this morning continue D5W w KCL follow BMP # Swallowing problem secondary to altered mentation RETIREMENT ASSISTANT rec NPO to do bedside swallow screen # acute Hypoxic and hypercapnic respiratory failure likely secondary to pneumonia + acute on chronic CHF hypoxia resolving Aspiration and fall precautions. Continue Zosyn (08/27) Chest CT scan to be repeated after antibiotic course to recheck for possible mass # History of heart failure with moderate pericardial effusion + pulmonary edema on chest CT scan. Hold anymore Lasix IV. TTE showing EF >70%, , mod pulm HTN with small pericardial effusion. IVC collapses with inspiration # Chronic atrial fibrillation, rate controlled. Telemetry. Eliquis on hold due to thrombocytopenia. # Thrombocytopenia, cause unclear. Hold Eliquis. Continue to monitor. # Hypothyroidism. TSH is normal. levothyroxine DVT prophylaxis: SCDs Code status: DNR/DNI Patient will need hospitalization overnight for acute encephalopathy treatment with IV antibiotic therapy and correction of hyponatremia pending improvement in mental status. Quality Stroke Does the patient have a stroke diagnosis?: No VTE Prior VTE?: No VTE Risk Level:: Medical - moderate - high VTE Device Contraindication: Treatment Not Indicated VTE Drug Contraindication: N/A - Med Ordered
[2023-08-31] MEDS: 0.9 % Sodium Chloride Flush 3 ML SYRINGE IVFLUSH (16:59)
[2023-08-31] MEDS: hydrALAZINE HCl 10 MG TABLET PO ×2 (16:59→21:47)
[2023-08-31] MEDS: Dextrose 5 % and 0.45 % NaCl 1,000 ML 50 ML IVCONT (17:08)
[2023-08-31] MEDS: Apixaban 5 MG TABLET PO (21:46)
[2023-08-31] MEDS: Metoprolol Tartrate 25 MG TABLET PO (21:46)
[2023-08-31] MEDS: Atorvastatin Calcium 40 MG TABLET PO (21:46)
[2023-08-31] MEDS: acetaZOLAMIDE 250 MG TABLET 125 MG PO (21:47)
[2023-09-01] VITALS (12 sets, daily range): BP systolic 109–146; BP diastolic 53–77; PULSE 62–84; RESP 18–20; TEMP 36.2–36.7; O2SAT 97–100
[2023-09-01] MEDS: Piperacillin Sodium/Tazobactam 3.375 GM in 0.9 % Sodium Chloride 50 ML IV ×4 (00:24→17:22)
[2023-09-01] MEDS: Levothyroxine Sodium 125 MCG TABLET 62.5 MCG PO (06:09)
[2023-09-01 07:48] LABS: Anion Gap 11 (12-20); Blood Urea Nitrogen 13 mg/dL (9-16); Calcium 8.7 mg/dL (8.4-10.2); Carbon Dioxide 29 mmol/L (22-29); Chloride 105 mmol/L (96-108); Creatinine Clr Calc Pharmacy 41.3; Estimated Glomerular Filt Rate 52; Glucose Random 128 mg/dL (60-115); Potassium 3.8 mmol/L (3.3-5.1); Sodium 141 mmol/L (135-145)
--- NOTE | 2023-09-01 09:32 | PC.NURSE ---
Pt seen for med pass, daughter at beside - requesting RN come back when pt is more alert d/t pt difficulty swallowing.
[2023-09-01] MEDS: Bumetanide 1 MG TABLET 0.5 MG PO (11:17)
[2023-09-01] MEDS: oxyBUTYnin chloride ER 5 MG TAB.ER.24 10 MG PO (11:23)
[2023-09-01] MEDS: acetaZOLAMIDE 250 MG TABLET 125 MG PO ×2 (11:23→20:37)
[2023-09-01] MEDS: Apixaban 5 MG TABLET PO (11:23)
[2023-09-01] MEDS: Aspirin Enteric Coated 81 MG TABLET.DR PO (11:24)
[2023-09-01] MEDS: hydrALAZINE HCl 10 MG TABLET PO ×3 (11:25→20:36)
[2023-09-01] MEDS: 0.9 % Sodium Chloride Flush 3 ML SYRINGE IVFLUSH ×3 (11:37→20:42)
--- NOTE | 2023-09-01 13:28 | HO.PM.IMPN ---
Subjective Subjective Date of Service: 09/01/23 Interval History: Seen and evaluated more alert and interactive today Na corrected to 141 this morning developing mild edema Review of Systems Review of Systems: Yes all other systems are reviewed and are negative Physical Exam Vital Signs: Vital Signs: Last Vital Signs Temp 98.0 F 09/01/23 12:00 Pulse 70 09/01/23 12:00 Resp 20 09/01/23 12:00 BP 122/60 09/01/23 12:00 Pulse Ox 100 09/01/23 12:00 O2 Del Method Nasal Cannula 09/01/23 12:00 O2 Flow Rate 1 09/01/23 12:00 Oxygen Flow Rate 3 08/27/23 14:33 BMI result Body Mass Index 27.1 Const: Other: Constitutional : more alert, not in distress Neck : Normal inspection, Supple Cardiovascular : RRR, no JVP, +1 lower extremity edema Respiratory : fair bilateral air entry, basal LLL crackles Gastrointestinal: soft, lax, Normal bowel sounds, Non tender Skin : Warm, Dry Neurological : Alert and interactive,.oriented to self and place, No focal deficit Objective Data Active Medications Acetazolamide (Acetazolamide 250 Mg Tablet) 125 mg PO BID@ [facility] Last Admin: 09/01/23 11:23 Dose: 125 mg Documented By: GABRIEL Apixaban (Apixaban 5 Mg Tablet) 5 mg PO BID@ [facility] Last Admin: 09/01/23 11:23 Dose: 5 mg Documented By: GABRIEL Aspirin (Aspirin Enteric Coated 81 Mg Tablet.) 81 mg PO DAILY@799 [facility] Last Admin: 09/01/23 11:24 Dose: 81 mg Documented By: GABRIEL Atorvastatin Calcium (Atorvastatin Calcium 40 Mg Tablet) 40 mg PO DAILY@1999 [facility] Last Admin: 08/31/23 21:46 Dose: 40 mg Documented By: ALIYA Bumetanide (Bumetanide 1 Mg Tablet) 0.5 mg PO DAILY [facility]; Protocol Last Admin: 09/01/23 11:17 Dose: 0.5 mg Documented By: GABRIEL Clonazepam (Clonazepam 0.5 Mg Tablet) 0.5 mg PO BEDTIME PRN PRN Reason: Anxiety Hydralazine HCl (Hydralazine Hcl 10 Mg Tablet) 10 mg PO TID@0800,1500,1999 [facility]; Protocol Last Admin: 09/01/23 11:25 Dose: 10 mg Documented By: GABRIEL Piperacillin Sod/Tazobactam (Sod 3.375 gm/ Sodium Chloride) 50 mls @ 100 mls/hr IV Q6H [facility] Last Infusion: 09/01/23 12:18 Dose: Infused Documented By: GABRIEL Ketorolac Tromethamine (Ketorolac Tromethamine 15 Mg/Ml Vial) 15 mg IVPUSH ONCE PRN PRN Reason: Pain, Severe (Pain Scale 7-10) Last Admin: 08/29/23 17:08 Dose: 15 mg Documented By: STEPHAN Levothyroxine Sodium (Levothyroxine Sodium 125 Mcg Tablet) 62.5 mcg PO DAILY@0700 [facility] Last Admin: 09/01/23 06:09 Dose: 62.5 mcg Documented By: ALIYA Metoprolol Tartrate (Metoprolol Tartrate 25 Mg Tablet) 25 mg PO BID@0800,1999 [facility]; Protocol Last Admin: 09/01/23 11:25 Dose: Not Given Documented By: GABRIEL Non-Admin Reason: Decreased Heart Rate Oxybutynin Chloride (Oxybutynin Chloride Er 5 Mg Tab.Er.24) 10 mg PO DAILY@0800 [facility] Last Admin: 09/01/23 11:23 Dose: 10 mg Documented By: GABRIEL Potassium Chloride (Potassium Chloride Er 20 Meq Tab.Er.Prt) 20 meq PO SUMOTUWEFRSA@1500 [facility] Last Admin: 08/31/23 16:58 Dose: Not Given Documented By: VALE Non-Admin Reason: NPO Potassium Chloride (Potassium Chloride Er 20 Meq Tab.Er.Prt) 40 meq PO TH@1500 [facility] Quetiapine Fumarate (Quetiapine Fumarate 25 Mg Tablet) 25 mg PO ONCE PRN PRN Reason: anxiety/restlessness Sodium Chloride (0.9 % Sodium Chloride Flush 3 Ml Syringe) 3 ml IVFLUSH QSHIFT [facility] Last Admin: 09/01/23 11:37 Dose: 3 ml Documented By: GABRIEL Labs 08/31/23 06:05 09/01/23 07:12 Labs: Laboratory Results - last 24 hr 09/01/23 07:12 Anion Gap 11 L Estim Creat Clear Calc 41.3 Estimated GFR 52 Random Glucose 128 H Calcium 8.7 Assessment and Plan (1) Congestive heart failure: Status: Acute (2) Toxic metabolic encephalopathy: Status: Acute (3) Acute hypokalemia: Status: Acute (4) Acute hypernatremia: Status: Acute Plan Soraya Chen is 83 years old woman admitted with: # Acute toxic metabolic encephalopathy 2/2 infection , hypernatremia and inpatient delerium Improved significantly. recurrent reorientation Seroquel PRN , Treat pneumonia, resolving hypernatremia FLEET DRIVER to follow # Acute Hypernatermia Na 141 this morning dc D5W w KCL follow BMP # Swallowing problem FLEET DRIVER to follow nursing bedside swallow screen and start NDD1 w Nectart thick liquids # acute Hypoxic and hypercapnic respiratory failure likely secondary to pneumonia + acute on chronic CHF resolving Aspiration and fall precautions. Continue Zosyn (08/27) until she can tolerates PO Chest CT scan to be repeated after antibiotic course to recheck for possible mass # History of heart failure with moderate pericardial effusion + pulmonary edema on chest CT scan. Hold anymore Lasix IV. TTE showing EF >70%, , mod pulm HTN with small pericardial effusion. IVC collapses with inspiration # Chronic atrial fibrillation, rate controlled. Telemetry. Eliquis on hold due to thrombocytopenia. # Thrombocytopenia, cause unclear. Hold Eliquis. Continue to monitor. # Hypothyroidism. TSH is normal. levothyroxine DVT prophylaxis: SCDs Code status: DNR/DNI Patient will need hospitalization overnight for acute encephalopathy treatment with IV antibiotic therapy and improvement in mental status. pending safe discharge plan Quality Stroke Does the patient have a stroke diagnosis?: No VTE Prior VTE?: No VTE Risk Level:: Medical - moderate - high VTE Device Contraindication: Treatment Not Indicated VTE Drug Contraindication: N/A - Med Ordered
--- NOTE | 2023-09-01 15:45 | MHC.CM.PN ---
CM spoke with pt and her today about DCP. They are in agreement with pt going to STR and she has been in past. lives in [facility], wants it to be close to there, referrals out, awaiting updated PT eval.
[2023-09-01] MEDS: Potassium Chloride ER 20 MEQ TAB.ER.PRT PO (17:16)
[2023-09-01] MEDS: Atorvastatin Calcium 40 MG TABLET PO (20:35)
[2023-09-01] MEDS: Metoprolol Tartrate 25 MG TABLET PO (20:35)
[2023-09-01] MEDS: Calcium Carbonate 750 MG TAB.CHEW PO (20:35)
[2023-09-02] VITALS (8 sets, daily range): BP systolic 123–139; BP diastolic 58–66; PULSE 66–83; RESP 18–20; TEMP 35.7–36.6; O2SAT 92–96
[2023-09-02] MEDS: Piperacillin Sodium/Tazobactam 3.375 GM in 0.9 % Sodium Chloride 50 ML IV ×2 (00:11→06:03)
[2023-09-02] MEDS: Levothyroxine Sodium 125 MCG TABLET 62.5 MCG PO (06:02)
[2023-09-02] MEDS: oxyBUTYnin chloride ER 5 MG TAB.ER.24 10 MG PO (09:47)
[2023-09-02] MEDS: acetaZOLAMIDE 250 MG TABLET 125 MG PO ×2 (09:47→21:09)
[2023-09-02] MEDS: Bumetanide 1 MG TABLET 0.5 MG PO (09:48)
[2023-09-02] MEDS: 0.9 % Sodium Chloride Flush 3 ML SYRINGE IVFLUSH ×2 (09:48→15:35)
[2023-09-02] MEDS: Metoprolol Tartrate 25 MG TABLET PO (09:48)
[2023-09-02] MEDS: hydrALAZINE HCl 10 MG TABLET PO ×3 (09:48→21:09)
--- NOTE | 2023-09-02 10:41 | HO.PM.IMPN ---
Subjective Subjective Date of Service: 09/02/23 Interval History: Seen and evaluated more alert and interactive today tolerating diet wants to get up and do PT Review of Systems Review of Systems: Yes all other systems are reviewed and are negative Physical Exam Vital Signs: Vital Signs: Last Vital Signs Temp 96.7 F L 09/02/23 07:30 Pulse 79 09/02/23 09:48 Resp 20 09/02/23 07:30 BP 139/63 09/02/23 09:48 Pulse Ox 96 09/02/23 07:30 O2 Del Method Nasal Cannula 09/02/23 07:30 O2 Flow Rate 1 09/02/23 07:30 Oxygen Flow Rate 3 08/27/23 14:33 BMI result Body Mass Index 27.1 Const: Other: Constitutional : more alert, not in distress Neck : Normal inspection, Supple Cardiovascular : RRR, no JVP, trace lower extremity edema Respiratory : fair bilateral air entry, basal LLL crackles Gastrointestinal: soft, lax, Normal bowel sounds, Non tender Skin : Warm, Dry Neurological : Alert and interactive,.oriented to self and place, No focal deficit Objective Data Active Medications Acetazolamide (Acetazolamide 250 Mg Tablet) 125 mg PO BID@0800,1999 [facility] Last Admin: 09/02/23 09:47 Dose: 125 mg Documented By: MALINI Aspirin (Aspirin Enteric Coated 81 Mg Tablet.) 81 mg PO DAILY@08 [facility] Last Admin: 09/01/23 11:24 Dose: 81 mg Documented By: GABRIEL Atorvastatin Calcium (Atorvastatin Calcium 40 Mg Tablet) 40 mg PO DAILY@1999 [facility] Last Admin: 09/01/23 20:35 Dose: 40 mg Documented By: TRINI Bumetanide (Bumetanide 1 Mg Tablet) 0.5 mg PO DAILY [facility]; Protocol Last Admin: 09/02/23 09:48 Dose: 0.5 mg Documented By: MALINI Calcium Carbonate (Calcium Carbonate 750 Mg Tab.Chew) 750 mg PO Q6H PRN PRN Reason: Indigestion Last Admin: 09/01/23 20:35 Dose: 750 mg Documented By: TRINI Clonazepam (Clonazepam 0.5 Mg Tablet) 0.5 mg PO BEDTIME PRN PRN Reason: Anxiety Hydralazine HCl (Hydralazine Hcl 10 Mg Tablet) 10 mg PO TID@0800,1500,2000 [facility]; Protocol Last Admin: 09/02/23 09:48 Dose: 10 mg Documented By: MALINI Piperacillin Sod/Tazobactam (Sod 3.375 gm/ Sodium Chloride) 50 mls @ 100 mls/hr IV Q6H [facility] Last Infusion: 09/02/23 09:39 Dose: Infused Documented By: MALINI Ketorolac Tromethamine (Ketorolac Tromethamine 15 Mg/Ml Vial) 15 mg IVPUSH ONCE PRN PRN Reason: Pain, Severe (Pain Scale 7-10) Last Admin: 08/29/23 17:08 Dose: 15 mg Documented By: STEPHAN Levothyroxine Sodium (Levothyroxine Sodium 125 Mcg Tablet) 62.5 mcg PO DAILY@0700 [facility] Last Admin: 09/02/23 06:02 Dose: 62.5 mcg Documented By: TRINI Metoprolol Tartrate (Metoprolol Tartrate 25 Mg Tablet) 25 mg PO BID@0800,1999 [facility]; Protocol Last Admin: 09/02/23 09:48 Dose: 25 mg Documented By: MALINI Oxybutynin Chloride (Oxybutynin Chloride Er 5 Mg Tab.Er.24) 10 mg PO DAILY@0800 [facility] Last Admin: 09/02/23 09:47 Dose: 10 mg Documented By: MALINI Potassium Chloride (Potassium Chloride Er 20 Meq Tab.Er.Prt) 20 meq PO SUMOTUWEFRSA@1500 [facility] Last Admin: 09/01/23 17:16 Dose: 20 meq Documented By: GABRIEL Potassium Chloride (Potassium Chloride Er 20 Meq Tab.Er.Prt) 40 meq PO TH@1500 [facility] Quetiapine Fumarate (Quetiapine Fumarate 25 Mg Tablet) 25 mg PO ONCE PRN PRN Reason: anxiety/restlessness Sodium Chloride (0.9 % Sodium Chloride Flush 3 Ml Syringe) 3 ml IVFLUSH QSHIFT [facility] Last Admin: 09/02/23 09:48 Dose: 3 ml Documented By: MALINI Labs 08/31/23 06:05 09/01/23 07:12 Microbiology Microbiology Results: Microbiology 08/27/23 23:57 Blood Culture - Final Blood - Venous No growth after 5 days. 08/27/23 23:58 Blood Culture - Final Blood - Venous No growth after 5 days. Assessment and Plan (1) Congestive heart failure: Status: Acute (2) Toxic metabolic encephalopathy: Status: Acute (3) Acute hypokalemia: Status: Acute (4) Acute hypernatremia: Status: Acute (5) Respiratory failure with hypoxia and hypercapnia: Status: Acute (6) Physical deconditioning: Status: Acute Plan Soraya Chen is 83 years old woman admitted with: # Acute toxic metabolic encephalopathy 2/2 infection , hypernatremia and inpatient delerium resolved recurrent reorientation COMPETENCY EVALUATED NURSE AIDE advanced diet to NDD2 start Incentive spirometry # Acute Hypernatermia Na 141 follow BMP as needed # Swallowing problem advanced to NDD2 # acute Hypoxic and hypercapnic respiratory failure likely secondary to pneumonia + acute on chronic CHF resolved Aspiration and fall precautions. Continue Zosyn (08/27) until she can tolerates PO Chest CT scan to be repeated after antibiotic course to recheck for possible mass # History of heart failure with moderate pericardial effusion + pulmonary edema on chest CT scan. Hold anymore Lasix IV. restarted low dose Bumex 0.5 mg TTE showing EF >70%, , mod pulm HTN with small pericardial effusion. IVC collapses with inspiration # Chronic atrial fibrillation, rate controlled. Telemetry. Eliquis on hold due to thrombocytopenia. # Thrombocytopenia, cause unclear. Hold Eliquis. Continue to monitor. # Hypothyroidism. TSH is normal. levothyroxine DVT prophylaxis: SCDs Code status: DNR/DNI Patient will need hospitalization overnight for acute encephalopathy treatment with IV antibiotic therapy and improvement in mental status. pending safe discharge plan Quality Stroke Does the patient have a stroke diagnosis?: No VTE Prior VTE?: No VTE Risk Level:: Medical - moderate - high VTE Device Contraindication: Treatment Not Indicated VTE Drug Contraindication: N/A - Med Ordered
--- NOTE | 2023-09-02 10:54 | MHC.CM.PN ---
Per ROUNDS discussion, Patient is medically cleared for dc to SNF/STR today (CM awaits today's PT PN that SNF will need for auth/PT aware); [facility] has accepted and CM will follow.
--- NOTE | 2023-09-02 11:47 | PC.NURSE ---
Per MD orders ware to be removed and voiding trial started. Ware removed at 11:45, patient tolerated well. Patient due to void at 1745. Purewick in place, call cotter within reach all other needs met at this time.
[2023-09-02] MEDS: Piperacillin Sodium/Tazobactam 4.5 GM in 0.9 % Sodium Chloride 100 ML IV ×2 (12:44→17:22)
--- NOTE | 2023-09-02 12:58 | MHC.CM.PN ---
CM met with Patient and her at bedside to discuss PT's recommendation for STR. Per Patient and 's request, CM spoke with Daughter/Meri @ [phone] for final choice of SNF. Per Meri, Patient has been to [facility] in the past and that facility remains the first choice. [facility] is initiating auth with [facility] and CM will follow.
--- NOTE | 2023-09-02 13:01 | MHC.SL.SWA ---
Speech Pathologist Impression: Oral phase dysphagia d/t edentulous status Risk of Aspiration Due to: History of Pneumonia Reduced Cognition Dysphasia Diet Status: UPGRADE to NDD2/THIN Liquid Consistency and Strategies for Safe Swallow: Liquid Intake Recommendation: Thin Liquid Intake Strategies: Small Sips Solid Food Consistency: Dietary Recommendations: Grnd/Mech Altered (NDD2) Additional Modifications to Solid Foods: Recommend UPGRADE to GROUND/MECH ALTERED (NDD2) solids with THIN liquids, patient has been tolerating taking her pills WHOLE in LIQUID. She will continue to need 1:1 assistance feeding. Oral Medication Intake: Whole with Liquid Please contact the pharmacy regarding appropriate crushable or liquid drug formulations that are available whenever modified delivery is recommended. Compensatory Strategies and Precautions to be Taken for Safe Swallow: Sitting Upright (90 deg) Small Bites and Sips Alternate Liquids/Solids Rate of Ingestion Change Avoid Specific Foods Supervision While Eating and Drinking for Safe Swallow: Total Assistance (1:1) Foods to Avoid: Hard, tough to chew solids Swallowing Recommended Treatments: Compens. Strategy Educat. Recommendation for Speech: Inpatient Speech Therapy Frequency/Duration: M-F while inpatient. Date Range for Service Req: Timeline to reassess: Frame Wirer Clinican/Clinical Fellow: No Supervisory Statement: I have reviewed and agree with the student/clinical fellow's documentation: N/A Speech Language Pathologist: Tiffanie Zamorano M.A., CCC-STIFF NECK LOADER
[2023-09-02] MEDS: Potassium Chloride ER 20 MEQ TAB.ER.PRT PO (15:35)
[2023-09-02] MEDS: Atorvastatin Calcium 40 MG TABLET PO (21:09)
[2023-09-03] VITALS (8 sets, daily range): BP systolic 111–148; BP diastolic 53–76; PULSE 66–115; RESP 16–20; TEMP 36.1–36.9; O2SAT 95–98
[2023-09-03] MEDS: Piperacillin Sodium/Tazobactam 4.5 GM in 0.9 % Sodium Chloride 100 ML IV ×5 (00:56→23:44)
[2023-09-03] MEDS: 0.9 % Sodium Chloride Flush 3 ML SYRINGE IVFLUSH ×3 (00:58→23:44)
[2023-09-03] MEDS: QUEtiapine Fumarate 25 MG TABLET PO (02:39)
--- NOTE | 2023-09-03 07:18 | PC.NURSE ---
0330 Pt unable to sleep, periods of anxiousness, tearful at times. PRN seroquel given with slight decrease in anxiousness. bladder scanned x 2 this shift with result of 278 ml at 2300 374ml at 0600. immediately after bladder scan pt voided approx 100 ml via purewick. No complaints at this time.
[2023-09-03] MEDS: hydrALAZINE HCl 10 MG TABLET PO (09:41)
[2023-09-03] MEDS: oxyBUTYnin chloride ER 5 MG TAB.ER.24 10 MG PO (09:42)
[2023-09-03] MEDS: Metoprolol Tartrate 25 MG TABLET PO (09:42)
[2023-09-03] MEDS: Bumetanide 1 MG TABLET 0.5 MG PO (09:42)
[2023-09-03] MEDS: acetaZOLAMIDE 250 MG TABLET 125 MG PO (09:42)
--- NOTE | 2023-09-03 12:39 | PC.NURSE ---
Patient still having minimal urine output, patient ambulated to commode and was still unable to urinate. Bladder scan done and showed 340mls. MD notified and per MD place another ware and to be discharged with ware to facility.
--- NOTE | 2023-09-03 13:07 | MHC.SPEECHCO ---
HEDGE FUND TRADER attempted to see Pt twice today however she is too lethargic. Her Family is in the room and reports that she took minimal bites of her breakfast before falling asleep this morning. They are not interested in further upgrade stating that the Ground/[facility] Altered (NDD2) and Thin Liquids recommendations is perfect for her. No further HEDGE FUND TRADER intervention required at this time. Please re-refer if status changes.
--- NOTE | 2023-09-03 13:12 | MHC.SL.DTX ---
Dysphagia Diet modifications: Last documented Solid diet consistencies: Pureed (NDD1) Last documented Liquid consistency: [place] Thick Changes made to current diet?: Yes: UPGRADE to GROUND/MECH ALTERED (NDD2), THIN Liquid Consistency and Strategies: Liquid Intake Recommendation: Thin Compensatory Strategies for Safe Swallow: Small Sips Compensatory Strategies for Safe Swallow(b): Sitting Upright (90 deg) Small Bites and Sips Alternate Liquids/Solids Rate of Ingestion Change Avoid Specific Foods Solid Food Consistency: Dietary Recommendations: Grnd/Mech Altered (NDD2) Additional Modifications to Solids: Recommend UPGRADE to GROUND/MECH ALTERED (NDD2) solids with THIN liquids, patient has been tolerating taking her pills WHOLE in LIQUID. She will continue to need 1:1 assistance feeding. Oral Medication Intake: Whole with Liquid Strategies and Precautions to be Taken for Safe Swallow: Sitting Upright (90 deg) Small Bites and Sips Alternate Liquids/Solids Rate of Ingestion Change Avoid Specific Foods Supervision While Eating and/Drinking: Total Assistance (1:1) Foods to Avoid: Hard, tough to chew solids Swallowing Recommended Treatments: Compens. Strategy Educat. Level of Impact on: Daily activities: Interpersonal interactions: Education: Employment: Community: Prognosis for Improvement: Recommendation for Speech: Inpatient Speech Therapy Comment: Patient requires one to one feeding, needs to be adequately awake and requires ample orientation to task of eating/drinking/taking medication. RESTAURANT CULINARY MANAGER will continue to follow, re-assess for advancement of diet when appropriate. Frequency/Duration: M-F while inpatient. Additional Comments: Patient was recommended downgrade to NPO status 08/29 d/t patient's obtunded state. Per MD, patient's mental status has since improved, she passed her RN swallow screen, and was started on pureed diet and nectar thick liquids pending RESTAURANT CULINARY MANAGER re-evaluation. Patient's family reports patient tolerated her pills whole with water this morning and that she has been drinking thin liquids without any difficulty. She has dentures, but typically does not use them at home. She was eating an unmodified diet prior to her hospitalization. Treatment: Patient is seen for repeat bedside swallow exam this morning. Patient was awake and alert, sitting up in bed, accompanied by her daughter and . Patient tolerated sips of thin liquid administered via teaspoon and straw with intact ability to suck from straw and strip teaspoon, good oral containment, mild delay initiating swallow, and no overt s/s of aspiration. Patient was given small bites of laurita crackers softened in applesauce. She demonstrated mildly slowed and prolonged mastication, but with complete oral clearance and no overt s/s of aspiration. Assessment: Stove Cleaner Clinican/Clinical Fellow: No Supervisory Statement: I have reviewed and agree with the student/clinical fellow's documentation: N/A Speech Language Pathologist: Tiffanie Zamorano M.A., CCC-RESTAURANT CULINARY MANAGER
--- NOTE | 2023-09-03 15:21 | HO.PM.IMPN ---
Subjective Subjective Date of Service: 09/03/23 Interval History: Seen and evaluated had rough night with restlessness tolerating diet no other events reported looks much better in the afternoon today, more alert and interactive Review of Systems Review of Systems: Yes all other systems are reviewed and are negative Physical Exam Vital Signs: Vital Signs: Last Vital Signs Temp 98.0 F 09/03/23 11:19 Pulse 66 09/03/23 11:19 Resp 20 09/03/23 11:19 BP 115/53 L 09/03/23 11:19 Pulse Ox 97 09/03/23 11:19 O2 Del Method Nasal Cannula 09/03/23 11:19 O2 Flow Rate 1 09/03/23 11:19 Oxygen Flow Rate 3 08/27/23 14:33 BMI result Body Mass Index 27.1 Const: Other: Constitutional : more alert, not in distress Neck : Normal inspection, Supple Cardiovascular : RRR, no JVP, trace lower extremity edema Respiratory : fair bilateral air entry, basal LLL crackles Gastrointestinal: soft, lax, Normal bowel sounds, Non tender Skin : Warm, Dry Neurological : Alert and interactive,.oriented to self and place, No focal deficit Objective Data Active Medications Acetazolamide (Acetazolamide 250 Mg Tablet) 125 mg PO BID@0800,1999 [facility] Last Admin: 09/03/23 09:42 Dose: 125 mg Documented By: MALINI Aspirin (Aspirin Enteric Coated 81 Mg Tablet.) 81 mg PO DAILY@0800 [facility] Last Admin: 09/01/23 11:24 Dose: 81 mg Documented By: GABRIEL Atorvastatin Calcium (Atorvastatin Calcium 40 Mg Tablet) 40 mg PO DAILY@1999 [facility] Last Admin: 09/02/23 21:09 Dose: 40 mg Documented By: TRINI Bumetanide (Bumetanide 1 Mg Tablet) 0.5 mg PO DAILY [facility]; Protocol Last Admin: 09/03/23 09:42 Dose: 0.5 mg Documented By: MALINI Calcium Carbonate (Calcium Carbonate 750 Mg Tab.Chew) 750 mg PO Q6H PRN PRN Reason: Indigestion Last Admin: 09/01/23 20:35 Dose: 750 mg Documented By: TRINI Clonazepam (Clonazepam 0.5 Mg Tablet) 0.5 mg PO BEDTIME PRN PRN Reason: Anxiety Hydralazine HCl (Hydralazine Hcl 10 Mg Tablet) 10 mg PO TID@0800,1500,1999 [facility]; Protocol Last Admin: 09/03/23 09:41 Dose: 10 mg Documented By: MALINI Piperacillin Sod/Tazobactam (Sod 4.5 gm/ Sodium Chloride) 100 mls @ 200 mls/hr IV Q6H [facility] Last Infusion: 09/03/23 13:14 Dose: Infused Documented By: MALINI Ketorolac Tromethamine (Ketorolac Tromethamine 15 Mg/Ml Vial) 15 mg IVPUSH ONCE PRN PRN Reason: Pain, Severe (Pain Scale 7-10) Last Admin: 08/29/23 17:08 Dose: 15 mg Documented By: STEPHAN Levothyroxine Sodium (Levothyroxine Sodium 125 Mcg Tablet) 62.5 mcg PO DAILY@0700 [facility] Last Admin: 09/03/23 06:26 Dose: Not Given Documented By: TRINI Non-Admin Reason: Patient Asleep Metoprolol Tartrate (Metoprolol Tartrate 25 Mg Tablet) 25 mg PO BID@0800,1999 [facility]; Protocol Last Admin: 09/03/23 09:42 Dose: 25 mg Documented By: MALINI Oxybutynin Chloride (Oxybutynin Chloride Er 5 Mg Tab.Er.24) 10 mg PO DAILY@0800 [facility] Last Admin: 09/03/23 09:42 Dose: 10 mg Documented By: MALINI Potassium Chloride (Potassium Chloride Er 20 Meq Tab.Er.Prt) 20 meq PO SUMOTUWEFRSA@1500 [facility] Last Admin: 09/02/23 15:35 Dose: 20 meq Documented By: MALINI Potassium Chloride (Potassium Chloride Er 20 Meq Tab.Er.Prt) 40 meq PO TH@1500 [facility] Quetiapine Fumarate (Quetiapine Fumarate 25 Mg Tablet) 25 mg PO ONCE PRN PRN Reason: anxiety/restlessness Last Admin: 09/03/23 02:39 Dose: 25 mg Documented By: TRINI Sodium Chloride (0.9 % Sodium Chloride Flush 3 Ml Syringe) 3 ml IVFLUSH QSHIFT [facility] Last Admin: 09/03/23 09:43 Dose: 3 ml Documented By: MALINI Labs 08/31/23 06:05 09/01/23 07:12 Assessment and Plan (1) Physical deconditioning: Status: Acute (2) Congestive heart failure: Status: Acute (3) Toxic metabolic encephalopathy: Status: Acute (4) Acute hypokalemia: Status: Acute (5) Acute hypernatremia: Status: Acute (6) Respiratory failure with hypoxia and hypercapnia: Status: Acute Plan Soraya Chen is 83 years old woman admitted with: # Acute toxic metabolic encephalopathy 2/2 infection , hypernatremia and inpatient delerium resolved recurrent reorientation CAREER BASED INTERVENTION COORDINATOR advanced diet to NDD2 Incentive spirometry # Acute Hypernatermia Na 141 follow BMP as needed # Swallowing problem advanced to NDD2 # acute Hypoxic and hypercapnic respiratory failure likely secondary to pneumonia + acute on chronic CHF resolved Aspiration and fall precautions. Continue Zosyn (08/27) until she can tolerates PO Chest CT scan to be repeated after antibiotic course to recheck for possible mass # History of heart failure with moderate pericardial effusion + pulmonary edema on chest CT scan. Hold anymore Lasix IV. restarted low dose Bumex 0.5 mg TTE showing EF >70%, , mod pulm HTN with small pericardial effusion. IVC collapses with inspiration # Chronic atrial fibrillation, rate controlled. Telemetry. Eliquis on hold due to thrombocytopenia. # Thrombocytopenia, cause unclear. Hold Eliquis. Continue to monitor. # Hypothyroidism. TSH is normal. levothyroxine DVT prophylaxis: SCDs Code status: DNR/DNI Dispo: patient waiting auth Patient will need hospitalization overnight for acute encephalopathy treatment with IV antibiotic therapy and improvement in mental status. pending safe discharge plan Quality Stroke Does the patient have a stroke diagnosis?: No VTE Prior VTE?: No VTE Risk Level:: Medical - moderate - high VTE Device Contraindication: Treatment Not Indicated VTE Drug Contraindication: N/A - Med Ordered
--- NOTE | 2023-09-03 16:08 | PC.NURSE ---
Merida cath placed at 1550 per MD orders. Patient tolerated well, no complaints of pain and draining well pale yellow urine. Patient increasingly lethargic and unable to keep eyes open prior to insertion. Per MD send urine culture and check labs. All other needs met at this time, call cotter within reach.
[2023-09-03 16:20] LABS: Appearance Urine Clear; Color Urine Yellow; Glucose Urine UA Negative (Negative); Leukocyte Esterase Urine Moderate (2+) (Negative); Nitrite Urine Negative (Negative); PH 6.5 (5.0-9.0); Specific Gravity - Urine 1.025 (1.005-1.025); UMIC TRIGGER UACC YES; Urine Blood Negative (Negative); Urine Ketones Trace mg/dL (Negative); Urine Protein Trace mg/dL (Neg-Trace)
[2023-09-03 16:22] LABS: Hematocrit 35.2 % (37.0-47.0); Hemoglobin 10.6 g/dl (12.0-16.0); Mean Corpuscular HGB Conc 30.1 g/dl (31.0-35.0); Mean Corpuscular Hemoglobin 28.3 pg (27.0-33.0); Mean Corpuscular Volume 94.1 fL (80.0-98.0); Mean Platelet Volume 12.9 fL (9.4-12.3); Platelet Count 38 X10*3/uL (160-400); Red Blood Count 3.74 X10*6/uL (4.20-5.50); Red Cell Distribution Width 17.2 % (11.0-16.0); White Blood Count 7.3 X10*3/uL (4.8-10.8)
[2023-09-03 16:47] LABS: Bacteria Urine None Seen (None Seen); Hyaline Casts Urine 0-2 /LPF (0-2); Squamous Epithelial Cell Urine 0-2 /HPF (0-2); UACC Culture Trigger YES; WBC Urine 21-50 /HPF (0-5)
[2023-09-03 16:48] LABS: RBC Urine 0-2 /HPF (0-2)
[2023-09-03 18:47] LABS: Anion Gap 15 (12-20); Blood Urea Nitrogen 16 mg/dL (9-16); Calcium 8.2 mg/dL (8.4-10.2); Carbon Dioxide 26 mmol/L (22-29); Chloride 107 mmol/L (96-108); Creatinine Clr Calc Pharmacy 35.1; Estimated Glomerular Filt Rate 43; Glucose Random 109 mg/dL (60-115); Potassium 3.9 mmol/L (3.3-5.1); Sodium 144 mmol/L (135-145)
[2023-09-04] VITALS (9 sets, daily range): BP systolic 115–138; BP diastolic 58–82; PULSE 57–79; RESP 17–20; TEMP 36.2–36.7; O2SAT 92–99
[2023-09-04] MEDS: Piperacillin Sodium/Tazobactam 4.5 GM in 0.9 % Sodium Chloride 100 ML IV ×2 (05:55→15:35)
[2023-09-04] MEDS: Levothyroxine Sodium 125 MCG TABLET 62.5 MCG PO (05:57)
[2023-09-04 06:32] LABS: Hematocrit 41.7 % (37.0-47.0); Hemoglobin 12.4 g/dl (12.0-16.0); Mean Corpuscular HGB Conc 29.7 g/dl (31.0-35.0); Mean Corpuscular Hemoglobin 28.4 pg (27.0-33.0); Mean Corpuscular Volume 95.6 fL (80.0-98.0); Mean Platelet Volume 10.9 fL (9.4-12.3); Red Blood Count 4.36 X10*6/uL (4.20-5.50); Red Cell Distribution Width 17.2 % (11.0-16.0)
[2023-09-04 06:36] LABS: Platelet Count 41 X10*3/uL (160-400)
[2023-09-04 06:45] LABS: Anion Gap 14 (12-20); Blood Urea Nitrogen 14 mg/dL (9-16); Calcium 8.3 mg/dL (8.4-10.2); Carbon Dioxide 28 mmol/L (22-29); Chloride 107 mmol/L (96-108); Creatinine Clr Calc Pharmacy 37.7; Estimated Glomerular Filt Rate 46; Glucose Random 79 mg/dL (60-115); Potassium 3.6 mmol/L (3.3-5.1); Sodium 145 mmol/L (135-145)
--- NOTE | 2023-09-04 10:10 | MHC.CM.PN ---
CM still awaits word from [facility] that they have received [facility] auth for STR. CM will follow.
--- NOTE | 2023-09-04 10:25 | P.PNIM_ITS ---
Subjective Subjective Date of Service: 09/04/23 Interval History: comfortable and calm this AM Physical Exam 2 Vital Signs: Vital Signs: Last Vital Signs Temp 97.2 F 09/04/23 07:40 Pulse 72 09/04/23 07:40 Resp 17 09/04/23 07:40 BP 138/82 09/04/23 07:40 Pulse Ox 99 09/04/23 07:40 O2 Del Method Room Air 09/04/23 07:40 O2 Flow Rate 1 09/04/23 03:47 Oxygen Flow Rate 3 08/27/23 14:33 BMI result Body Mass Index 27.1 alert, no acute distress, hard of hearing Objective Data Active Medications Acetazolamide (Acetazolamide 250 Mg Tablet) 125 mg PO BID@0800,1999 [facility] [place] Last Admin: 09/03/23 19:59 Dose: Not Given Documented By: MELCHOR Non-Admin Reason: pt lethargic Aspirin (Aspirin Enteric Coated 81 Mg Tablet.) 81 mg PO DAILY@08 [facility] [place] Last Admin: 09/01/23 11:24 Dose: 81 mg Documented By: GABRIEL Atorvastatin Calcium (Atorvastatin Calcium 40 Mg Tablet) 40 mg PO DAILY@1999 [facility] [place] Last Admin: 09/03/23 19:59 Dose: Not Given Documented By: MELCHOR Non-Admin Reason: pt lethargic Bumetanide (Bumetanide 1 Mg Tablet) 0.5 mg PO DAILY [facility] [place]; Protocol Last Admin: 09/03/23 09:42 Dose: 0.5 mg Documented By: MALINI Calcium Carbonate (Calcium Carbonate 750 Mg Tab.Chew) 750 mg PO Q6H PRN PRN Reason: Indigestion Last Admin: 09/01/23 20:35 Dose: 750 mg Documented By: TRINI Clonazepam (Clonazepam 0.5 Mg Tablet) 0.25 mg PO Q24H PRN PRN Reason: Anxiety Hydralazine HCl (Hydralazine Hcl 10 Mg Tablet) 10 mg PO TID@0800,1499,1999 [facility] [place]; Protocol Last Admin: 09/03/23 20:00 Dose: Not Given Documented By: MELCHOR Non-Admin Reason: pt lethargic Piperacillin Sod/Tazobactam (Sod 4.5 gm/ Sodium Chloride) 100 mls @ 200 mls/hr IV Q6H [facility] [place] Last Infusion: 09/04/23 06:30 Dose: Infused Documented By: MELCHOR Levothyroxine Sodium (Levothyroxine Sodium 125 Mcg Tablet) 62.5 mcg PO DAILY@0700 [facility] [place] Last Admin: 09/04/23 05:57 Dose: 62.5 mcg Documented By: MELCHOR Metoprolol Tartrate (Metoprolol Tartrate 25 Mg Tablet) 25 mg PO BID@0800,2000 [facility] [place]; Protocol Last Admin: 09/03/23 20:00 Dose: Not Given Documented By: MELCHOR Non-Admin Reason: pt lethargic Oxybutynin Chloride (Oxybutynin Chloride Er 5 Mg Tab.Er.24) 10 mg PO DAILY@0800 [facility] [place] Last Admin: 09/03/23 09:42 Dose: 10 mg Documented By: MALINI Potassium Chloride (Potassium Chloride Er 20 Meq Tab.Er.Prt) 20 meq PO SUMOTUWEFRSA@1500 [facility] [place] Last Admin: 09/03/23 15:30 Dose: Not Given Documented By: MALINI Non-Admin Reason: patient unable to swallow pills Potassium Chloride (Potassium Chloride Er 20 Meq Tab.Er.Prt) 40 meq PO TH@1500 [facility] [place] Quetiapine Fumarate (Quetiapine Fumarate 25 Mg Tablet) 12.5 mg PO BEDTIME [facility] [place] Sodium Chloride (0.9 % Sodium Chloride Flush 3 Ml Syringe) 3 ml IVFLUSH QSHIFT [facility] [place] Last Admin: 09/03/23 23:44 Dose: 3 ml Documented By: MELCHOR Labs 09/04/23 05:56 09/04/23 05:56 Labs: Laboratory Results - last 24 hr 09/03/23 09/03/23 09/03/23 15:52 15:57 18:15 MCV 94.1 MCH 28.3 MCHC 30.1 L RDW 17.2 H Plt Count 38 L MPV 12.9 H Absolute Nucleated RBC 0.000 Nucleated RBC % (auto) 0.0 Anion Gap 15 Estim Creat Clear Calc 35.1 Estimated GFR 43 Random Glucose 109 Calcium 8.2 L Urine Color Yellow Urine Appearance Clear Urine pH 6.5 Ur Specific [place] 1.025 Urine Protein Trace Urine Glucose (UA) Negative Urine Ketones Trace Urine Blood Negative Urine Nitrite Negative Ur Leukocyte Esterase Moderate (2+) H Urine RBC 0-2 Urine WBC 21-50 H Ur Squamous Epith Cells 0-2 Urine Bacteria None Seen Hyaline Casts 0-2 Urine Yeast Present 09/04/23 05:56 MCV 95.6 MCH 28.4 MCHC 29.7 L RDW 17.2 H Plt Count 41 L MPV 10.9 Absolute Nucleated RBC 0.000 Nucleated RBC % (auto) 0.0 Anion Gap 14 Estim Creat Clear Calc 37.7 Estimated GFR 46 Random Glucose 79 Calcium 8.3 L Urine Color Urine Appearance Urine pH Ur Specific [place] Urine Protein Urine Glucose (UA) Urine Ketones Urine Blood Urine Nitrite Ur Leukocyte Esterase Urine RBC Urine WBC Ur Squamous Epith Cells Urine Bacteria Hyaline Casts Urine Yeast Assessment and Plan (1) Physical deconditioning: Status: Acute (2) Congestive heart failure: Status: Acute (3) Toxic metabolic encephalopathy: Status: Acute (4) Acute hypokalemia: Status: Acute (5) Acute hypernatremia: Status: Acute (6) Respiratory failure with hypoxia and hypercapnia: Status: Acute Plan Soraya Chen is 83 years old woman admitted with: Acute toxic metabolic encephalopathy 2/2 infection , hypernatremia and inpatient delerium resolved recurrent reorientation [employer] advanced diet to NDD2 Incentive spirometry seroquel 12.5mg at bedtime Acute Hypernatermia follow BMP as needed Swallowing problem advanced to NDD2 acute Hypoxic and hypercapnic respiratory failure likely secondary to pneumonia + acute on chronic CHF resolved Aspiration and fall precautions. Continue Zosyn (08/27) Chest CT scan to be repeated after antibiotic course to recheck for possible mass History of heart failure with moderate pericardial effusion + pulmonary edema on chest CT scan. s/p Lasix IV. restarted low dose Bumex 0.5 mg TTE showing EF >70%, , mod pulm HTN with small pericardial effusion. IVC collapses with inspiration Chronic atrial fibrillation, rate controlled. Telemetry. Eliquis on hold due to thrombocytopenia. Thrombocytopenia, cause unclear. Hold Eliquis. Continue to monitor. Hypothyroidism. TSH is normal. levothyroxine DVT prophylaxis: SCDs Code status: DNR/DNI Dispo: awaiting auth Quality Stroke Does the patient have a stroke diagnosis?: No VTE Prior VTE?: No VTE Risk Level:: Medical - moderate - high VTE Device Contraindication: Treatment Not Indicated VTE Drug Contraindication: N/A - Med Ordered
[2023-09-04] MEDS: Bumetanide 1 MG TABLET 0.5 MG PO (10:29)
[2023-09-04] MEDS: hydrALAZINE HCl 10 MG TABLET PO ×2 (10:29→15:35)
[2023-09-04] MEDS: oxyBUTYnin chloride ER 5 MG TAB.ER.24 10 MG PO (10:29)
[2023-09-04] MEDS: acetaZOLAMIDE 250 MG TABLET 125 MG PO (10:29)
[2023-09-04] MEDS: Metoprolol Tartrate 25 MG TABLET PO (10:30)
[2023-09-04] MEDS: 0.9 % Sodium Chloride Flush 3 ML SYRINGE IVFLUSH ×2 (10:30→15:35)
--- NOTE | 2023-09-04 12:09 | P.DS_ITS ---
DS: Providers Provider Date of Service: 09/04/23 Date of admission: 08/28/23 03:06 Primary care physician: Jade Evangelista MD Consults: 08/28/23 04:42 Consult to Cardiology Routine Consulting Provider: [facility] Reason for consultation: Pericardial effusion Has provider been notified: Yes 08/28/23 04:50 Consult to Neurology Routine Consulting Provider: [facility] Reason for consultation: Altered mental status Has provider been notified: No DS: Diagnosis Discharge Diagnosis (1) Physical deconditioning: Status: Acute (2) Congestive heart failure: Status: Acute (3) Toxic metabolic encephalopathy: Status: Acute (4) Acute hypokalemia: Status: Acute (5) Acute hypernatremia: Status: Acute (6) Respiratory failure with hypoxia and hypercapnia: Status: Acute DS: Summary Hospital Course Hospital Course: from initial hpi: 83 years old woman with past medical history significant for atrial fibrillation on Eliquis, hypothyroidism and CHF on Bumex and acetazolamide was brought to the emergency department via EMS after she was found to be altered. According to ED triage notes patient was seen well around 6:30 AM by her . She was found to have an oxygen saturation between 80 and 88% on room air by EMS. Her oxygen saturation increased to 95% with supplemental oxygen, 2 liters/minutes via nasal cannula. Patient was given clonazepam 0.5 mg by her as she was agitated. It was mentioned that patient has decreased p.o. intake, tremors and weight loss over the last week. As per ED provider who spoke with patient's family patient was found to be more confused today and was not found to have any focal weakness. In the ED, she was found to be tachypneic and hypoxic. No tachycardia or hypotension were reported. Blood workup showed no leukocytosis. Hemoglobin is 13.9 and platelets are low, 72. There are no significant electrolyte imbalances. Bicarb was 31. LFTs, TSH and troponins are normal. Salicylates, acetaminophen alcohol levels are undetectable. Viral testing for COVID-19, influenza and RSV is negative. Initial venous blood gas showed respiratory acidosis. Chest CTA showed cardiomegaly with marked bilateral enlargement, moderate pericardial effusion and interstitial pulmonary edema. It also showed finding consistent with pneumonia. Head and neck CTA showed no intracranial bleeding, hydrocephalus, mass effect or high-grade stenosis or large vessel occlusion. ECG showed atrial fibrillation with a heart rate 60 beats per minute and nonspecific T-wave abnormalities. Patient was treated with BiPAP and most recent venous gas showed correction of respiratory acidosis. According to ED notes patient is DNR/DNI. Patient was unable to provide her HPI due to altered mental status. hospital course: Patient was admitted for acute toxic metabolic encephalopathy secondary to infection, hypernatremia, inpatient delirium. Her mental status returned to baseline. She will be discharged on Seroquel 12.5 mg at bedtime. And Klonopin 0.25 mg as needed. She was seen by speech therapy recommended ndd2 solids and thin liquids. For acute hypernatremia her sodium improved. For acute hypoxic and hypercapnic respiratory failure secondary to aspiration pneumonia and acute on chronic diastolic CHF, completed course of IV Zosyn, received IV Lasix and then put on Bumex 0.5 mg daily. Echo showed EF greater than 70%, moderate pulmonary hypertension and small pericardial effusion, for chronic atrial fibrillation she was rate controlled, Eliquis and aspirin were held due to chronic thrombocytopenia of unclear cause. For hypothyroidism her levothyroxine was continued. [facility]. Time Attestation Discharge Coordination Time (in mins): 33 Quality: Safe Use of Opioids Does Pt have an Active Cancer Diagnosis on the Problem List?: No Quality: Stroke Does the patient have a stroke diagnosis?: No Physical Exam Vital Signs: Vital Signs: Last Vital Signs Temp 97.4 F 09/04/23 11:29 Pulse 57 09/04/23 11:39 Resp 18 09/04/23 11:29 BP 131/58 L 09/04/23 11:39 Pulse Ox 94 09/04/23 11:39 O2 Del Method Room Air 09/04/23 11:29 O2 Flow Rate 1 09/04/23 03:47 Oxygen Flow Rate 3 08/27/23 14:33 BMI result Body Mass Index 27.1 alert, no acute distress, hard of hearing DS: Data Data Completed and Pending Labs on day of discharge: Laboratory Results - last 24 hr 09/03/23 09/03/23 09/03/23 15:52 15:57 18:15 WBC 7.3 RBC 3.74 L Hgb 10.6 L Hct 35.2 L MCV 94.1 MCH 28.3 MCHC 30.1 L RDW 17.2 H Plt Count 38 L MPV 12.9 H Absolute Nucleated RBC 0.000 Nucleated RBC % (auto) 0.0 Sodium 144 Potassium 3.9 Chloride 107 Carbon Dioxide 26 Anion Gap 15 BUN 16 Creatinine 1.20 Estim Creat Clear Calc 35.1 Estimated GFR 43 Random Glucose 109 Calcium 8.2 L Urine Color Yellow Urine Appearance Clear Urine pH 6.5 Ur Specific [place] 1.025 Urine Protein Trace Urine Glucose (UA) Negative Urine Ketones Trace Urine Blood Negative Urine Nitrite Negative Ur Leukocyte Esterase Moderate (2+) H Urine RBC 0-2 Urine WBC 21-50 H Ur Squamous Epith Cells 0-2 Urine Bacteria None Seen Hyaline Casts 0-2 Urine Yeast Present 09/04/23 05:56 WBC 6.0 RBC 4.36 Hgb 12.4 Hct 41.7 MCV 95.6 MCH 28.4 MCHC 29.7 L RDW 17.2 H Plt Count 41 L MPV 10.9 Absolute Nucleated RBC 0.000 Nucleated RBC % (auto) 0.0 Sodium 145 Potassium 3.6 Chloride 107 Carbon Dioxide 28 Anion Gap 14 BUN 14 Creatinine 1.12 Estim Creat Clear Calc 37.7 Estimated GFR 46 Random Glucose 79 Calcium 8.3 L Urine Color Urine Appearance Urine pH Ur Specific [place] Urine Protein Urine Glucose (UA) Urine Ketones Urine Blood Urine Nitrite Ur Leukocyte Esterase Urine RBC Urine WBC Ur Squamous Epith Cells Urine Bacteria Hyaline Casts Urine Yeast Discharge Plan Discharge Anticipated Discharge Date/Time: 09/04/23 12:06 Patient Disposition: Xfer SNF Discharge Diagnosis: pna Referrals: [facility] [Outside] - 1 Week Jade Evangelista MD [Primary Care Provider] - 1 Week Discharge Medications: New quetiapine 25 mg Tablet 12.5 mg PO BEDTIME Qty: 0 0RF clonazepam 0.5 mg Tablet 0.25 mg PO Q24H PRN (Reason: Anxiety) Qty: 10 0RF Antacid Ext Str (calcium carb) 300 mg (750 mg) Tablet,Chewable 2.5 tab PO Q6H PRN (Reason: Indigestion) Qty: 0 0RF bumetanide 1 mg Tablet 0.5 mg PO DAILY Qty: 0 0RF Protocol: Hold for SBP< HOLD for SBP < : 90 Continued hydralazine 10 mg Tablet 10 mg PO TID@0800,1500,2000 levothyroxine 137 mcg Tablet 68.5 mcg PO DAILY@0700 atorvastatin 80 mg Tablet 40 mg PO DAILY@1999 oxybutynin chloride 10 mg Tablet Extended Release 24hr 10 mg PO DAILY@0800 acetazolamide 125 mg Tablet 125 mg PO BID@08,1999 ferrous sulfate 325 mg (65 mg iron) Tablet 325 mg PO MOTH@0800 metoprolol tartrate 25 mg Tablet 25 mg PO BID@0800,1999 potassium chloride 20 mEq Tablet Extended Release 20 meq PO SUMOTUWEFRSA@1500 potassium chloride 20 mEq Tablet Extended Release 40 meq PO TH@1500 cetirizine [Zyrtec] 10 mg Tablet 10 mg PO DAILY Discontinued clonazepam 0.5 mg Tablet 0.5 mg PO BEDTIME PRN (Reason: Anxiety) Rx Instructions: administer 30 minutes before bedtime aspirin 81 mg Tablet,Delayed Release (Dr/Ec) 81 mg PO DAILY@0800 bumetanide 1 mg Tablet 2 mg PO DAILY@0800 bumetanide 1 mg Tablet 1 mg PO DAILY@1500 Eliquis 5 mg Tablet 5 mg PO BID@08,1999 Discharge Orders: Discharge Order (Routine); Ordered 09/04/23 Ordered By: Ger James Diet: ndd2, thins Activity on Discharge: As tolerated Stand Alone Forms: Patient Portal Discharge page Print Language: Beninese Care Plan Goals: recovery, maange delerium Health Concerns: delerium Plan of Treatment: seroquel at night, rehab Assessment: see above
--- NOTE | 2023-09-04 12:11 | MHC.CM.PN ---
Patient is medically cleared for dc to SNF/STR today. Patient will dc to [facility] today at 4PM, via [facility]. CM spoke with Daughter/Meri @ [phone] and met with Patient and her at bedside to address the IMM (original was given to Patient and a copy has been placed in the chart).
== END 2023-09-04 16:28 | disposition skilled nursing facility (03) | DRG 177 ==
LOC: HO.ED 20:40 → HO.EDOVER 08-28 03:09 → HO.IMC 08-28 17:00
PROVIDERS: Internal Medicine; Student in an Organized Health Care Education/Training Program; Admitting Provider Internal Medicine; Emergency Provider Emergency Medicine; PCP Internal Medicine; Visit Provider Internal Medicine
DX: J69.0 Pneumonitis due to inhalation of food and vomit (principal); G92.8 Other toxic encephalopathy; I50.33 Acute on chronic diastolic (congestive) heart failure; J96.01 Acute respiratory failure with hypoxia; J96.02 Acute respiratory failure with hypercapnia; I48.20 Chronic atrial fibrillation, unspecified; E87.0 Hyperosmolality and hypernatremia; F05 Delirium due to known physiological condition; I27.20 Pulmonary hypertension, unspecified; L89.151 Pressure ulcer of sacral region, stage 1; I25.10 Atherosclerotic heart disease of native coronary artery without angina pectoris; E78.5 Hyperlipidemia, unspecified; E87.6 Hypokalemia; D69.6 Thrombocytopenia, unspecified; Z66 Do not resuscitate; Z99.81 Dependence on supplemental oxygen; E03.9 Hypothyroidism, unspecified; Z20.822 Contact with and (suspected) exposure to COVID-19; Z79.01 Long term (current) use of anticoagulants; Z79.890 Hormone replacement therapy; Z79.899 Other long term (current) drug therapy
CPT/HCPCS: 0241U; 36415; 70496; 70498; 71250; 80048; 80053; 80076; 80143; 80179; 80307; 81001; 81003; 82803; 82947; 83605; 83690; 83735; 84132; 84295; 84436; 84443; 84480; 84484; 85025; 85027; 87040; 87086; 87088; 92526; 92610; 93005; 93306; 97110; 97162; 99285; C1758; C9113; J0131; J0360; J1630; J1885; J1940; J2543; J3010; J3480; Q9957; Q9967

== ENCOUNTER → 2023-08-27 14:08 | Outpatient (BNV) | payer MEDICARE, SELFPAY | PROVIDERS: Emergency Provider Emergency Medicine; PCP Internal Medicine; Visit Provider Internal Medicine | DX: I48.91 Unspecified atrial fibrillation (principal) | CPT/HCPCS: 93010 ==

== ENCOUNTER 2023-08-28 03:06 | Outpatient (BNV) | payer MEDICARE, SELFPAY | END 2023-08-30 08:00 | PROVIDERS: Admitting Provider Internal Medicine; Emergency Provider Emergency Medicine; PCP Internal Medicine; Visit Provider Internal Medicine | DX: I48.91 Unspecified atrial fibrillation (principal) | CPT/HCPCS: 93010 ==

== ENCOUNTER 2023-08-28 03:06 | Outpatient (BNV) | payer MEDICARE, SELFPAY | END 2023-08-28 07:00 | PROVIDERS: Admitting Provider Internal Medicine; Emergency Provider Emergency Medicine; PCP Internal Medicine; Visit Provider Internal Medicine | DX: I36.1 Nonrheumatic tricuspid (valve) insufficiency (principal); R93.1 Abnormal findings on diagnostic imaging of heart and coronary circulation | CPT/HCPCS: 93306 ==

== ENCOUNTER 2023-08-28 03:06 | Outpatient (BNV) | payer MEDICARE, SELFPAY | END 2023-08-29 23:12 | PROVIDERS: Admitting Provider Internal Medicine; Emergency Provider Emergency Medicine; PCP Internal Medicine; Visit Provider Internal Medicine | DX: I48.91 Unspecified atrial fibrillation (principal) | CPT/HCPCS: 93010 ==

== ENCOUNTER → 2023-08-28 03:06 | Outpatient (BNV) | payer MEDICARE, SELFPAY | PROVIDERS: Admitting Provider Internal Medicine; Emergency Provider Emergency Medicine; PCP Internal Medicine; Visit Provider Internal Medicine | DX: R53.81 Other malaise (principal); I50.9 Heart failure, unspecified; G92.8 Other toxic encephalopathy; E87.6 Hypokalemia; E87.0 Hyperosmolality and hypernatremia; J96.01 Acute respiratory failure with hypoxia; J96.02 Acute respiratory failure with hypercapnia | CPT/HCPCS: 99223; 99232; 99239; 99499 ==

== ENCOUNTER → 2023-08-28 03:06 | Outpatient (BNV) | payer MEDICARE, SELFPAY | PROVIDERS: Admitting Provider Internal Medicine; Emergency Provider Emergency Medicine; PCP Internal Medicine; Visit Provider Psychiatry & Neurology Neurology | DX: G93.40 Encephalopathy, unspecified (principal); F03.90 Unspecified dementia, unspecified severity, without behavioral disturbance, psychotic disturbance, mood disturbance, and anxiety; J96.01 Acute respiratory failure with hypoxia; J96.02 Acute respiratory failure with hypercapnia | CPT/HCPCS: 99222 ==

== ENCOUNTER 2023-09-05 09:21 | Emergency (ER) | payer MEDICARE, SELFPAY ==
--- NOTE | ~2023-09-05 | XR_ITS ---
EXAMINATION: XR CHEST CLINICAL INFORMATION: Chest pain COMPARISON: Chest CT 08/27/2023 TECHNIQUE: AP upright and lateral views of the chest were obtained. FINDINGS: The cardiac silhouette is enlarged. There are small bilateral pleural effusions. On the lateral view, there is a 2.9 cm rounded area of opacity in the anterior upper chest with adjacent more superior opacity not appreciated on the PA view. There are small rounded opacities in the lateral right midlung on the PA view. Streaky opacities at the lung bases consistent with atelectasis and/or pneumonia. There is prominence of the pulmonary interstitium without pulmonary vascular redistribution. The bones are diffusely osteopenic. XR/XR chest 2V IMPRESSION: 1. Small bilateral pleural effusions. 2. Bibasilar atelectasis and/or pneumonia. 3. Rounded area of opacity in the anterior upper chest seen only on the lateral view and small rounded opacities in the lateral right midlung seen only on the PA view. Follow-up to resolution is suggested.
--- NOTE | 2023-09-05 09:31 | ECG_ITS ---
Test Reason : Chest Pain Blood Pressure : / mmHG Vent. Rate : 095 BPM Atrial Rate : 000 BPM P-R Int : 000 ms QRS Dur : 080 ms QT Int : 434 ms P-R-T Axes : 000 027 208 degrees QTc Int : 545 ms Atrial fibrillation Low voltage QRS Cannot rule out Anterior infarct (cited on or before 30-AUG-2023) Prolonged QT Abnormal ECG When compared with ECG of 30-AUG-2023 13:57, Questionable change in initial forces of Anterior leads QT has lengthened Referred By: Generic ED Physician Electronically Signed By:NATALYA JARAMILLO MD
[2023-09-05 09:32] VITALS: BP 156/100; PULSE 100; O2SAT 95
[2023-09-05 09:33] VITALS: BP 145/67; PULSE 87; RESP 16; TEMP 36.6; O2SAT 95; BMI 26.5
--- NOTE | 2023-09-05 09:35 | ED.CHESTPAIN ---
HPI - Chest Pain General Chief Complaint: Chest Pain Stated Complaint: CP,HIGH BP 166/105, FROM SNF/NEW ADMIT T-1 PER EMS Time Seen by Provider: 09/05/23 09:34 Source: patient Mode of arrival: ambulatory Limitations: no limitations History of Present Illness ED Provider: Dr. Alvino Drummond HPI narrative: 83-year-old female past medical history of respiratory failure with atrial fibrillation on Eliquis hypothyroidism hypoxia hypercapnia hypernatremia hypokalemia toxic metabolic encephalopathy CHF on Bumex [place] lives old woman deconditioning altered mental status recent prolonged admission she was seen here on the for altered mental status and hypoxia after getting clonazepam. She was discharged yesterday to a fdc with Seroquel at night as well as Klonopin her sodium did improve her hypoxia and hypercapnia improved after Zosyn and Lasix and was placed on Bumex she did have an echocardiogram that showed an EF of 70% and moderate pulmonary hypertension and a pericardial effusion. She has been at the fdc less than a day and returns for chest pain. Patient does have some altered mental status and dementia and apparently at the nursing complaining of chest pain but is denying chest pain here or shortness breath denies any cough or fever does not remember stating that she had chest pain. Related Data Home Medications ?Medication ?Instructions ?Recorded ?Confirmed acetazolamide 125 mg tablet 125 mg PO BID@0800,199908/28/23 08/28/23 atorvastatin 80 mg tablet 40 mg PO DAILY@199908/28/23 08/28/23 cetirizine 10 mg tablet (Zyrtec) 10 mg PO DAILY 08/28/23 08/28/23 ferrous sulfate 325 mg (65 mg 325 mg PO MOTH@0808/28/23 08/28/23 iron) tablet hydralazine 10 mg tablet 10 mg PO TID@0800,1500,199908/28/23 08/28/23 levothyroxine 137 mcg tablet 68.5 mcg PO DAILY@0700 08/28/23 08/28/23 metoprolol tartrate 25 mg tablet 25 mg PO BID@0800,199908/28/23 08/28/23 oxybutynin chloride 10 mg 10 mg PO DAILY@0800 08/28/23 08/28/23 tablet,extended release 24 hr potassium chloride 20 mEq 20 meq PO MAXWELLTUWÓSCARA@1500 08/28/23 08/28/23 tablet,extended release potassium chloride 20 mEq 40 meq PO TH@1500 08/28/23 08/28/23 tablet,extended release Previous Rx's ?Medication ?Instructions ?Recorded bumetanide 1 mg tablet 0.5 mg PO DAILY #0 tabs 09/04/23 calcium carbonate (Antacid Ext Str 2.5 tab PO Q6H PRN Indigestion #0 09/04/23 (calcium carb)) tabs clonazepam 0.5 mg tablet 0.25 mg (1/2 x 0.5 mg) PO Q24H PRN 09/04/23 Anxiety #10 tabs quetiapine 25 mg tablet 12.5 mg (1/2 x 25 mg) PO BEDTIME 09/04/23 #0 tabs Allergies Allergy/AdvReac Type Severity Reaction Status Date / Time No Known Allergies Allergy Verified 09/05/23 09:34 [facility] Past Medical History Medical History (Updated 09/05/23 @ 12:23 by Alvino Drummond DO) Dependence on supplemental 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 Partially vaccinated for covid-19 Chronic kidney disease, stage 3b Unspecified diastolic (congestive) heart failure Atherosclerotic heart disease of [place] coronary artery without angina pectoris Unspecified hearing loss, unspecified ear 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 and stage 1 through stage 4 chronic kidney disease, or unspecified chronic kidney disease Longstanding persistent atrial fibrillation Type 2 diabetes mellitus with diabetic neuropathy, unspecified Tremor, unspecified Cerebrovascular disease, unspecified Hypo-osmolality and hyponatremia Dehydration Hyperlipidemia, unspecified Pleural effusion in other conditions classified elsewhere Unspecified systolic (congestive) heart failure Pulmonary hypertension, unspecified Other toxic encephalopathy Acute respiratory failure with hypoxia Atrial fibrillation Congestive heart failure Hypothyroidism Social History Social History Household Members: Spouse Housing: Apartment Do you presently have visiting nurse or other home services: No Unable to assess alcohol history related to: Unable to respond Comment: patient agitated with camera in the room Patient Tobacco Use Status: Tobacco use Unknown Smoked in Last 30 Days: No Use of substances other than those prescribed or required for medical reasons: No Advance Directives: Yes Advance Directives Information Provided: Yes Advance Directives on File: No Do you have a plan to hurt others: No Plan service: No Physical Exam Vital Signs: Vital Signs: Last Vital Signs Temp 98 F 09/05/23 10:00 Pulse 85 09/05/23 10:00 Resp 16 09/05/23 09:33 BP 154/77 H 09/05/23 10:00 Pulse Ox 97 09/05/23 10:00 O2 Del Method Room Air 09/05/23 10:00 BMI result Body Mass Index 26.5 Course Course Course Narrative: Patient came in with vague chest pain per fdc staff and EMS. She denied it here but also appears to have some dementia. Patient looks well had an initial small elevation in troponin. A repeat troponin showed no change. She had a normal EKG XR and continues to not have pain. I feel she is safe to return to the fdc at this time. Medications Administered Discontinued Medications Generic Name Dose Route Start Last Admin Trade Name Freq PRN Reason Stop Dose Admin Aspirin 325 mg 09/05/23 11:09 09/05/23 11:25 Aspirin 325 Mg Tablet PO 09/05/23 11:10 325 mg ONCE ONE Administration Medical Decision Making Medical Decision Making [facility] Narrative: I will repeat labs and x-ray EKG Differential Diagnosis Differential Diagnoses: The differential diagnosis associated with the presentation includes Chest pain ACS pneumonia altered mental status CHF Admission/Observation Consideration of admission/observation: Escalation of care including admission/observation considered Consult Healthcare Provider Management of the patient was discussed with: Hospitalist Lab Data [facility] Lab Attestation statement: I reviewed the patient's lab results. 09/05/23 10:36 09/05/23 10:36 Labs: Lab Results 09/05/23 09/05/23 Range/Units 10:36 11:44 WBC 7.9 (4.8-10.8) X10*3/uL RBC 4.82 (4.20-5.50) X10*6/uL Hgb 13.8 (12.0-16.0) g/dl Hct 45.2 (37.0-47.0) % MCV 93.8 (80.0-98.0) fL MCH 28.6 (27.0-33.0) pg MCHC 30.5 L (31.0-35.0) g/dl RDW 17.0 H (11.0-16.0) % Plt Count 74 L D (160-400) X10*3/uL MPV 9.9 (9.4-12.3) fL Immature Gran % (Auto) 0.8 H (0.0-0.4) % Neut % (Auto) 86.5 H (45-73) % Lymph % (Auto) 3.0 L (20-40) % [place] % (Auto) 8.4 (2-11) % Eos % (Auto) 0.9 (0-4) % Baso % (Auto) 0.4 (0-2) % Lymph # (Auto) 0.2 L (1.2-4.9) X10*3/uL [place] # (Auto) 0.7 (0.1-1.2) X10*3/uL Eos # (Auto) 0.1 (0.0-0.4) X10*3/uL Baso # (Auto) 0.0 (0.0-0.2) X10*3/uL Abs Immat Gran (auto) 0.06 H (0.00-0.03) X10*3/uL Absolute Neuts (auto) 6.9 (2.0-8.3) x10*3/uL Absolute Nucleated RBC 0.000 (0.0-0.012) X10*3/uL Nucleated RBC % (auto) 0.0 (0.0-0.2) /100WBC Sodium 146 H (135-145) mmol/L Potassium 3.2 L (3.3-5.1) mmol/L Chloride 105 (96-108) mmol/L Carbon Dioxide 31 H (22-29) mmol/L Anion Gap 13 (12-20) BUN 13 (9-16) mg/dL Creatinine 1.01 (0.5-1.4) mg/dL Estim Creat Clear Calc 44.3 Estimated GFR 52 Random Glucose 94 (60-115) mg/dL Calcium 9.1 D (8.4-10.2) mg/dL Total Bilirubin 1.2 H (0.0-1.0) mg/dL Direct Bilirubin 0.5 (0.0-0.5) mg/dL AST 22 (5-31) U/L ALT 11 (0-31) U/L Alkaline Phosphatase 66 (39-117) U/L Troponin I High Sens 19.4 H 19.9 H (<3.5-17.0) ng/L B-Natriuretic Peptide 125 H (<100) pg/mL Total Protein 7.2 (6.5-8.0) g/dL Albumin 3.3 L (3.5-5.0) g/dL Lipase 33 (8-78) U/L Independent Interpretation I performed an independent interpretation of an: EKG and Plain X-Ray Interpretation: Rate 95 atrial fibrillation no signs of ischemia unchanged from previous interpreted by me Radiology Impression Discussion of test interpretation with radiology: I have reviewed the radiologist's reading. External Record Review External record reviewed: Inpatient record, Office record, Outpatient record and Prior outpatient labs Chronic Conditions past medical history of respiratory failure with atrial fibrillation on Eliquis hypothyroidism hypoxia hypercapnia hypernatremia hypokalemia toxic metabolic encephalopathy CHF on Bumex [place] lives old woman deconditioning altered mental status recent prolonged admission she was seen here on the for altered mental status and hypoxia after getting clonazepam. She was discharged yesterday to a fdc with Seroquel at night as well as Klonopin her sodium did improve her hypoxia and hypercapnia improved after Zosyn and Lasix and was placed on Bumex she did have an echocardiogram that showed an EF of 70% and moderate pulmonary hypertension and a pericardial effusion Social Determinants Patient?s care significantly limited by Social Determinants of Health including: Inadequate housing detention care for a day Discharge Plan Discharge Clinical Impression: Chest pain Patient Disposition: Home, Self-Care Instructions: Chest Pain (DC) Additional Instructions: You seen in the emergency department for chest pain. You had an x-ray, ecg and labs which did not show any signs of affecting heart. Please call follow-up with your doctor if you have any other further concerns please return to emergency department Prescriptions: No Action hydralazine 10 mg Tablet 10 mg PO TID@0800,1500,2000 levothyroxine 137 mcg Tablet 68.5 mcg PO DAILY@0700 atorvastatin 80 mg Tablet 40 mg PO DAILY@2000 oxybutynin chloride 10 mg Tablet Extended Release 24hr 10 mg PO DAILY@0800 acetazolamide 125 mg Tablet 125 mg PO BID@0800,1999 ferrous sulfate 325 mg (65 mg iron) Tablet 325 mg PO MOTH@0800 metoprolol tartrate 25 mg Tablet 25 mg PO BID@0800,2000 potassium chloride 20 mEq Tablet Extended Release 20 meq PO SUMOTUWEFRSA@1500 potassium chloride 20 mEq Tablet Extended Release 40 meq PO TH@1500 cetirizine [Zyrtec] 10 mg Tablet 10 mg PO DAILY quetiapine 25 mg Tablet 12.5 mg PO BEDTIME Qty: 0 0RF clonazepam 0.5 mg Tablet 0.25 mg PO Q24H PRN (Reason: Anxiety) Qty: 10 0RF Antacid Ext Str (calcium carb) 300 mg (750 mg) Tablet,Chewable 2.5 tab PO Q6H PRN (Reason: Indigestion) Qty: 0 0RF bumetanide 1 mg Tablet 0.5 mg PO DAILY Qty: 0 0RF Protocol: Hold for SBP< HOLD for SBP < : 90 Print Language: Chinese
[2023-09-05 10:00] VITALS: BP 154/77; PULSE 85; TEMP 36.6; O2SAT 97
[2023-09-05 10:40] LABS: MANUAL DIFF FLAG NO
[2023-09-05 10:46] LABS: Basophils Percent Auto 0.4 % (0-2); Eosinophils Absolute Auto 0.1 X10*3/uL (0.0-0.4); Eosinophils Percent Auto 0.9 % (0-4); Hematocrit 45.2 % (37.0-47.0); Hemoglobin 13.8 g/dl (12.0-16.0); Imm Gran Abs Auto 0.06 X10*3/uL (0.00-0.03); Imm Gran Pct Auto 0.8 % (0.0-0.4); Lymphocytes Absolute Auto 0.2 X10*3/uL (1.2-4.9); Mean Corpuscular HGB Conc 30.5 g/dl (31.0-35.0); Mean Corpuscular Hemoglobin 28.6 pg (27.0-33.0); Mean Corpuscular Volume 93.8 fL (80.0-98.0); Mean Platelet Volume 9.9 fL (9.4-12.3); Monocytes Absolute Auto 0.7 X10*3/uL (0.1-1.2); Monocytes Percent Auto 8.4 % (2-11); Neutrophils Absolute Auto 6.9 x10*3/uL (2.0-8.3); Neutrophils Percent Auto 86.5 % (45-73); Red Blood Count 4.82 X10*6/uL (4.20-5.50); White Blood Count 7.9 X10*3/uL (4.8-10.8)
[2023-09-05 10:48] LABS: Platelet Count 74 X10*3/uL (160-400)
[2023-09-05 11:01] LABS: Anion Gap 13 (12-20); Blood Urea Nitrogen 13 mg/dL (9-16); Calcium 9.1 mg/dL (8.4-10.2); Carbon Dioxide 31 mmol/L (22-29); Chloride 105 mmol/L (96-108); Creatinine Clr Calc Pharmacy 44.3; Estimated Glomerular Filt Rate 52; Glucose Random 94 mg/dL (60-115); Potassium 3.2 mmol/L (3.3-5.1); Sodium 146 mmol/L (135-145)
[2023-09-05 11:02] LABS: Alanine Aminotransferase 11 U/L (0-31); Albumin Level 3.3 g/dL (3.5-5.0); Alkaline Phosphatase 66 U/L (39-117); Aspartate Amino Transferase 22 U/L (5-31); B Type Natriuretic Peptide 125 pg/mL (<100); Bilirubin Direct 0.5 mg/dL (0.0-0.5); Bilirubin Total 1.2 mg/dL (0.0-1.0); Lipase 33 U/L (8-78); Total Protein 7.2 g/dL (6.5-8.0)
[2023-09-05 11:05] LABS: Troponin-I High Sensitivity 19.4 ng/L (<3.5-17.0)
[2023-09-05] MEDS: Aspirin 325 MG TABLET PO (11:25)
--- NOTE | 2023-09-05 11:29 | PC.NURSE ---
pt medicated per order, daughter at bedside requested water pitcher with cups as well as mouth sponges so she can wipe out mothers mouth out with sponges. call cotter within reach, will continue to monitor.
[2023-09-05 12:16] LABS: Troponin-I High Sensitivity 19.9 ng/L (<3.5-17.0)
--- NOTE | 2023-09-05 12:50 | PC.NURSE ---
report given to Carina ANDRE at [facility], they are expecting patient.
--- NOTE | 2023-09-05 13:52 | PC.NURSE ---
ambulace to warehouse order picker patient at [phone]
[2023-09-05 14:00] VITALS: BP 157/67; PULSE 93; TEMP 36.6; O2SAT 94
== END 2023-09-05 15:53 ==
PROVIDERS: Emergency Provider Student in an Organized Health Care Education/Training Program; PCP Internal Medicine
DX: R07.89 Other chest pain (principal); R06.02 Shortness of breath; I48.91 Unspecified atrial fibrillation; Z79.01 Long term (current) use of anticoagulants; Z79.899 Other long term (current) drug therapy
CPT/HCPCS: 36415; 71046; 80048; 80076; 83690; 83880; 84484; 85025; 93005; 99283; 99284

== ENCOUNTER → 2023-09-05 09:31 | Outpatient (BNV) | payer MEDICARE, SELFPAY | PROVIDERS: Emergency Provider Student in an Organized Health Care Education/Training Program; PCP Internal Medicine; Visit Provider Internal Medicine Cardiovascular Disease | DX: I48.91 Unspecified atrial fibrillation (principal) | CPT/HCPCS: 93010 ==

== ENCOUNTER 2023-09-07 10:54 | Emergency (ER) | payer MEDICARE, SELFPAY ==
--- NOTE | ~2023-09-07 | XR_ITS ---
EXAMINATION: XR CHEST CLINICAL INFORMATION: Hypercapnia COMPARISON: 09/05/2023 TECHNIQUE: Frontal view of the chest was obtained. FINDINGS: The heart is enlarged, stable since previous study. There is vascular redistribution. No evidence of infiltrates. Small pleural effusion could not be excluded. XR/XR chest 1V IMPRESSION: Interval change. Cardiomegaly and vascular congestion
--- NOTE | ~2023-09-07 | CT_ITS ---
EXAMINATION: CT HEAD WITHOUT CONTRAST (STROKE PROTOCOL) CLINICAL INFORMATION: Stroke protocol. COMPARISON: None TECHNIQUE: Contiguous axial imaging was performed from the skull base to vertex without intravenous administration of contrast. This CT examination was performed using dose optimization techniques as appropriate, variously including the following: *Automated exposure control *Adjustment of mA and/or kV according to patient size (this includes techniques or standardized protocols for targeted exams where dose is matched to indication/reason for exam; i.e. extremities or head) *Use of iterative reconstruction technique DLP: 649 mGy-cm FINDINGS: BRAIN PARENCHYMA: No acute hemorrhage. No mass effect or herniation. Lafleur-white differentiation is maintained. White matter is within normal limits for age. VENTRICLES/EXTRA-AXIAL SPACES: There is mild ventriculomegaly and sulci full prominence related to global volume loss. There are mild patchy periventricular white matter changes as a sequela of microangiopathy EXTRACRANIAL STRUCTURES: Normal bones and soft tissues. Visualized paranasal sinuses and mastoids are clear. Findings discussed with Dr. Jenkins at 11 12 on 09/07/2023 per [facility] workflow. CT/CT head for stroke IMPRESSION: No acute intracranial pathology. Sequela of microangiopathy and global volume loss .
--- NOTE | 2023-09-07 10:58 | ED.GENADULT ---
HPI - General Adult General Chief complaint: Stroke Stated complaint: R SIDED FACIAL DROOP Time Seen by Provider: 09/07/23 10:58 Related Data Home Medications ?Medication ?Instructions ?Recorded ?Confirmed acetazolamide 125 mg tablet 125 mg PO BID@0800,199908/28/23 08/28/23 atorvastatin 80 mg tablet 40 mg PO DAILY@199908/28/23 08/28/23 cetirizine 10 mg tablet (Zyrtec) 10 mg PO DAILY 08/28/23 08/28/23 ferrous sulfate 325 mg (65 mg 325 mg PO MOTH@0808/28/23 08/28/23 iron) tablet hydralazine 10 mg tablet 10 mg PO TID@0800,1500,199908/28/23 08/28/23 levothyroxine 137 mcg tablet 68.5 mcg PO DAILY@0708/28/23 08/28/23 metoprolol tartrate 25 mg tablet 25 mg PO BID@0800,199908/28/23 08/28/23 oxybutynin chloride 10 mg 10 mg PO DAILY@0808/28/23 08/28/23 tablet,extended release 24 hr potassium chloride 20 mEq 20 meq PO SUMOTUWEFRSA@149908/28/23 08/28/23 tablet,extended release potassium chloride 20 mEq 40 meq PO TH@149908/28/23 08/28/23 tablet,extended release Previous Rx's ?Medication ?Instructions ?Recorded bumetanide 1 mg tablet 0.5 mg PO DAILY #0 tabs 09/04/23 calcium carbonate (Antacid Ext Str 2.5 tab PO Q6H PRN Indigestion #0 09/04/23 (calcium carb)) tabs clonazepam 0.5 mg tablet 0.25 mg (1/2 x 0.5 mg) PO Q24H PRN 09/04/23 Anxiety #10 tabs quetiapine 25 mg tablet 12.5 mg (1/2 x 25 mg) PO BEDTIME 09/04/23 #0 tabs haloperidol 2 mg tablet 2 mg PO Q4H PRN agitation #16 tabs 09/07/23 haloperidol lactate 2 mg/mL oral 2 mg PO Q4H PRN agitation #15 mL 09/07/23 concentrate hyoscyamine sulfate 0.125 mg tablet 0.125 mg PO Q4H PRN dyspepsia #16 09/07/23 tabs lorazepam 1 mg tablet 1 mg sublingual Q4H PRN anxiety 09/07/23 #16 tabs lorazepam 2 mg/mL oral concentrate 1 mg (0.5 mL) sublingual Q4H PRN 09/07/23 anxiety #30 mL morphine concentrate 100 mg/5 mL 10 mg (0.5 mL) PO Q3H PRN pain #15 09/07/23 (20 mg/mL) oral solution mL Allergies Allergy/AdvReac Type Severity Reaction Status Date / Time No Known Allergies Allergy Verified 09/07/23 11:17 [facility] Past Medical History Medical History (Updated 09/07/23 @ 15:52 by Godwin Jenkins MD) 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 [facility] (current) use of anticoagulants Partially vaccinated for covid-19 Chronic kidney disease, stage 3b Unspecified diastolic (congestive) heart failure Atherosclerotic heart disease of [place] coronary artery without angina pectoris Unspecified hearing loss, unspecified ear 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 and stage 1 through stage 4 chronic kidney disease, or unspecified chronic kidney disease Longstanding persistent atrial fibrillation Type 2 diabetes mellitus with diabetic neuropathy, unspecified Tremor, unspecified Cerebrovascular disease, unspecified Hypo-osmolality and hyponatremia Dehydration Hyperlipidemia, unspecified Pleural effusion in other conditions classified elsewhere Unspecified systolic (congestive) heart failure Pulmonary hypertension, unspecified Other toxic encephalopathy Acute respiratory failure with hypoxia Atrial fibrillation Congestive heart failure Hypothyroidism Social History Social History Household Members: Spouse Housing: Apartment Do you presently have visiting nurse or other home services: No Unable to assess alcohol history related to: Unable to respond Comment: patient agitated with camera in the room Patient Tobacco Use Status: Tobacco use Unknown service: No Physical Exam ED Vital Signs: Vital Signs - 24 hr 09/07/23 11:15 09/07/23 13:40 Temperature 99.1 F Pulse Rate 75 74 Respiratory Rate 20 29 H Blood Pressure 132/75 116/52 L Pulse Oximetry 95 96 Oxygen Delivery Method Nasal Cannula Room Air BMI result Body Mass Index 26.7 Const Other: The patient is a chronically ill-appearing 83-year-old who seems somnolent and poorly oriented. She is arousable with verbal stimuli. She does not seem in pain or respiratory distress however. HENMT Other: No obvious facial asymmetry. Mucous membranes not severely dry. Eyes Other: Pupils are round equal, conjunctivae are clear, lateral gaze eye movements are intact. Visual [place] seemed to be intact. Neck Other: External jugular veins are prominent. Resp Other: No obvious increased work of breathing. No [place] wheezes or crackles. Breath sounds seem fairly clear. Cardio Other: Patient has an irregular rate and rhythm with no definite murmur GI Other: Abdomen seems soft and not apparently tender Skin Other: The patient has a diffuse rash over much of her trunk. There is some sign of very early erythema to the sacral area. No actual skin breakdown. Neuro Other: The patient seemed very somnolent but arouses with loud verbal stimuli. She would answer some very simple questions and follow some very simple commands. Eye movements seemed intact. Visual [place] seemed grossly intact. Face was symmetrical. There was very minimal speech content. The patient seemed to have symmetrical strength in her arms. She did not move her legs much in response to command. No obvious lateralizing findings. Extrem Other: No deformities. No pitting edema Medical Decision Making Medical Decision Making MDM Narrative: The patient is an 83-year-old woman who was hospitalized 10 days ago for mental status changes ultimately determined to be a toxic metabolic encephalopathy secondary to a possible pneumonia. She was discharged from the hospital 3 days ago on . She returned to the hospital the following day on September 04 because of a question of chest pain or possibly some transient mental status changes. She returns today after seemingly becoming very somnolent after a nap this morning. There was some concern that she might be showing signs of a stroke but paramedics did not feel there was any definite asymmetry of the face or the arm strength and there was no definite lateralizing finding on her arrival here. She seemed to have an altered mental status but not definitely findings highly indicative of a stroke process. Nevertheless she was made a code stroke and a noncontrast head CT was done that showed no acute findings. Labs were sent. IV access was difficult. The patient remained somnolent but arousable to loud verbal stimuli. The patient's laboratory evaluation showed some degree of respiratory acidosis with hypercarbia and a mildly elevated white count. Urinalysis suggests a possible UTI (although just a few days ago she had an abnormal urinalysis with a urine culture that showed yeast). Ultimately the patient's family felt that the patient has had a significant functional decline over the last year and that she is showing significant worsening of dementia. They feel that the patient always expressed a desire to have minimal medical interventions if she were not very functional. The patient's family feels that since the hospitalization recently and since the patient has already had 2 ER visits since discharge from the hospital that they do not wish to pursue any acute further investigations or treatments and would prefer to consider hospice. I think this is not unreasonable. Case management was consulted. The family and case management met and it has been decided the patient will be placed on hospice care. I believe the patient will be kept in the emergency room overnight while family makes arrangements to be able to provide hospice at home. I have sent prescriptions for liquid morphine, lorazepam tablets, haloperidol tablets. and hyosciamineto the patient's pharmacy. Apparently hospice should have a hospital bed in the patient's home late tonight so that the patient may return to her home in the morning any time after 08:00 when a hospice nurse will be available to help establish care at home. Lab Data 09/07/23 11:57 09/07/23 11:57 Labs: Lab Results 09/07/23 09/07/23 09/07/23 Range/Units 11:08 11:57 11:59 WBC 12.4 H (4.8-10.8) X10*3/uL RBC 4.35 (4.20-5.50) X10*6/uL Hgb 12.5 (12.0-16.0) g/dl Hct 41.8 (37.0-47.0) % MCV 96.1 (80.0-98.0) fL MCH 28.7 (27.0-33.0) pg MCHC 29.9 L (31.0-35.0) g/dl RDW 17.7 H (11.0-16.0) % Plt Count 77 L (160-400) X10*3/uL MPV 10.2 (9.4-12.3) fL Immature Gran % (Auto) 1.0 H (0.0-0.4) % Neut % (Auto) 86.0 H (45-73) % Lymph % (Auto) 2.3 L (20-40) % [place] % (Auto) 7.5 (2-11) % Eos % (Auto) 3.0 (0-4) % Baso % (Auto) 0.2 (0-2) % Lymph # (Auto) 0.3 L (1.2-4.9) X10*3/uL [place] # (Auto) 0.9 (0.1-1.2) X10*3/uL Eos # (Auto) 0.4 (0.0-0.4) X10*3/uL Baso # (Auto) 0.0 (0.0-0.2) X10*3/uL Abs Immat Gran (auto) 0.12 H (0.00-0.03) X10*3/uL Absolute Neuts (auto) 10.6 H (2.0-8.3) x10*3/uL Absolute Nucleated RBC 0.000 (0.0-0.012) X10*3/uL Nucleated RBC % (auto) 0.0 (0.0-0.2) /100WBC PT 18.1 H (11.1-13.3) SEC Whole Blood PT 17.1 H (11.1-13.5) sec INR 1.5 H (0.9-1.1) Whole Blood INR 1.4 H (0.9-1.1) APTT 31.4 (26.0-36.8) SEC VBG pH 7.28 L (7.32-7.43) VBG pCO2 68 mmHg VBG pO2 114 mmHg VBG HCO3 32 H (22-26) mmol/L VBG O2 Saturation 100.0 % VBG Base Excess 3.6 mmol/L Sodium 145 (135-145) mmol/L Potassium 3.6 (3.3-5.1) mmol/L Chloride 107 (96-108) mmol/L Carbon Dioxide 32 H (22-29) mmol/L Anion Gap 10 L (12-20) BUN 16 (9-16) mg/dL Creatinine 1.03 (0.5-1.4) mg/dL Estim Creat Clear Calc 43.5 Estimated GFR 51 POC Glucose 131 H (60-115) mg/dL Random Glucose 137 H (60-115) mg/dL Calcium 8.5 D (8.4-10.2) mg/dL Magnesium 2.0 (1.6-2.6) mg/dL Total Bilirubin 0.9 (0.0-1.0) mg/dL Direct Bilirubin 0.4 (0.0-0.5) mg/dL AST 23 (5-31) U/L ALT 11 (0-31) U/L Alkaline Phosphatase 65 (39-117) U/L Total Creatine Kinase 34 (26-140) U/L Troponin I High Sens 22.1 H (<3.5-17.0) ng/L C-Reactive Protein 4.35 H (< or = 0.50) mg/dL B-Natriuretic Peptide 145 H (<100) pg/mL Total Protein 6.4 L (6.5-8.0) g/dL Albumin 3.0 L (3.5-5.0) g/dL Urine Color Urine Appearance Urine pH (5.0-9.0) Ur Specific [place] (1.005-1.025) Urine Protein (Neg-Trace) mg/dL Urine Glucose (UA) (Negative) mg/dL Urine Ketones (Negative) mg/dL Urine Blood (Negative) Urine Nitrite (Negative) Ur Leukocyte Esterase (Negative) Urine RBC (0-2) /HPF Urine WBC (0-5) /HPF Ur Squamous Epith Cells (0-2) /HPF Calcium Oxalate Crystal Urine Bacteria (None Seen) Hyaline Casts (0-2) /LPF Urine Yeast /11/22 Range/Units 13:26 WBC (4.8-10.8) X10*3/uL RBC (4.20-5.50) X10*6/uL Hgb (12.0-16.0) g/dl Hct (37.0-47.0) % MCV (80.0-98.0) fL MCH (27.0-33.0) pg MCHC (31.0-35.0) g/dl RDW (11.0-16.0) % Plt Count (160-400) X10*3/uL MPV (9.4-12.3) fL Immature Gran % (Auto) (0.0-0.4) % Neut % (Auto) (45-73) % Lymph % (Auto) (20-40) % [place] % (Auto) (2-11) % Eos % (Auto) (0-4) % Baso % (Auto) (0-2) % Lymph # (Auto) (1.2-4.9) X10*3/uL [place] # (Auto) (0.1-1.2) X10*3/uL Eos # (Auto) (0.0-0.4) X10*3/uL Baso # (Auto) (0.0-0.2) X10*3/uL Abs Immat Gran (auto) (0.00-0.03) X10*3/uL Absolute Neuts (auto) (2.0-8.3) x10*3/uL Absolute Nucleated RBC (0.0-0.012) X10*3/uL Nucleated RBC % (auto) (0.0-0.2) /100WBC PT (11.1-13.3) SEC Whole Blood PT (11.1-13.5) sec INR (0.9-1.1) Whole Blood INR (0.9-1.1) APTT (26.0-36.8) SEC VBG pH (7.32-7.43) VBG pCO2 mmHg VBG pO2 mmHg VBG HCO3 (22-26) mmol/L VBG O2 Saturation % VBG Base Excess mmol/L Sodium (135-145) mmol/L Potassium (3.3-5.1) mmol/L Chloride (96-108) mmol/L Carbon Dioxide (22-29) mmol/L Anion Gap (12-20) BUN (9-16) mg/dL Creatinine (0.5-1.4) mg/dL Estim Creat Clear Calc Estimated GFR POC Glucose (60-115) mg/dL Random Glucose (60-115) mg/dL Calcium (8.4-10.2) mg/dL Magnesium (1.6-2.6) mg/dL Total Bilirubin (0.0-1.0) mg/dL Direct Bilirubin (0.0-0.5) mg/dL AST (5-31) U/L ALT (0-31) U/L Alkaline Phosphatase (39-117) U/L Total Creatine Kinase (26-140) U/L Troponin I High Sens (<3.5-17.0) ng/L C-Reactive Protein (< or = 0.50) mg/dL B-Natriuretic Peptide (<100) pg/mL Total Protein (6.5-8.0) g/dL Albumin (3.5-5.0) g/dL Urine Color Yellow Urine Appearance Cloudy Urine pH 5.0 (5.0-9.0) Ur Specific [place] 1.015 (1.005-1.025) Urine Protein 30 (1+) H (Neg-Trace) mg/dL Urine Glucose (UA) Negative (Negative) mg/dL Urine Ketones Negative (Negative) mg/dL Urine Blood Large (3+) H (Negative) Urine Nitrite Negative (Negative) Ur Leukocyte Esterase Large (3+) H (Negative) Urine RBC >20 H (0-2) /HPF Urine WBC >50 H (0-5) /HPF Ur Squamous Epith Cells 0-2 (0-2) /HPF Calcium Oxalate Crystal Present Urine Bacteria None Seen (None Seen) Hyaline Casts >20 (0-2) /LPF Urine Yeast Present Independent Interpretation I performed an independent interpretation of an: EKG Interpretation: EKG at 1506 showed what is probably atrial flutter at 77 beats per minute. No definite acute ischemic changes. Discharge Plan Discharge Clinical Impression: Toxic metabolic encephalopathy, Hypercarbia, Dementia Patient Disposition: Home, Self-Care Additional Instructions: Arrangements are being made for initiation of hospice care at home. Prescriptions have been sent for morphine concentrated liquid, lorazepam concentrated liquid, and haloperidol concentrated liquid to be used as needed for comfort at home. Please plan on working with [facility] and [facility]. Prescriptions: New morphine concentrate 100 mg/5 mL (20 mg/mL) solution 10 mg PO Q3H PRN (Reason: pain) Qty: 15 0RF Rx Instructions: Partial Fill upon patient request. haloperidol lactate 2 mg/mL concentrate 2 mg PO Q4H PRN (Reason: agitation) Qty: 15 0RF lorazepam 2 mg/mL concentrate 1 mg sublingual Q4H PRN (Reason: anxiety) Qty: 30 0RF lorazepam 1 mg tablet 1 mg sublingual Q4H PRN (Reason: anxiety) Qty: 16 0RF hyoscyamine sulfate 0.125 mg tablet 0.125 mg PO Q4H PRN (Reason: dyspepsia) Qty: 16 0RF haloperidol 2 mg tablet 2 mg PO Q4H PRN (Reason: agitation) Qty: 16 0RF No Action hydralazine 10 mg Tablet 10 mg PO TID@0800,1500,1999 levothyroxine 137 mcg Tablet 68.5 mcg PO DAILY@0700 atorvastatin 80 mg Tablet 40 mg PO DAILY@1999 oxybutynin chloride 10 mg Tablet Extended Release 24hr 10 mg PO DAILY@0800 acetazolamide 125 mg Tablet 125 mg PO BID@0800,1999 ferrous sulfate 325 mg (65 mg iron) Tablet 325 mg PO MOTH@0800 metoprolol tartrate 25 mg Tablet 25 mg PO BID@0800,1999 potassium chloride 20 mEq Tablet Extended Release 20 meq PO SUMOTUWEFRSA@1500 potassium chloride 20 mEq Tablet Extended Release 40 meq PO TH@1500 cetirizine [Zyrtec] 10 mg Tablet 10 mg PO DAILY quetiapine 25 mg Tablet 12.5 mg PO BEDTIME Qty: 0 0RF clonazepam 0.5 mg Tablet 0.25 mg PO Q24H PRN (Reason: Anxiety) Qty: 10 0RF Antacid Ext Str (calcium carb) 300 mg (750 mg) Tablet,Chewable 2.5 tab PO Q6H PRN (Reason: Indigestion) Qty: 0 0RF bumetanide 1 mg Tablet 0.5 mg PO DAILY Qty: 0 0RF Protocol: Hold for SBP< HOLD for SBP < : 90 Referrals: [facility] [Outside] (Hospice) Print Language: Telugu
--- NOTE | 2023-09-07 10:59 | ECG_ITS ---
Test Reason : POSSIBLE STROKE Blood Pressure : / mmHG Vent. Rate : 077 BPM Atrial Rate : 000 BPM P-R Int : 000 ms QRS Dur : 078 ms QT Int : 350 ms P-R-T Axes : 000 045 002 degrees QTc Int : 396 ms Atrial fibrillation Low voltage QRS Cannot rule out Anterior infarct (cited on or before 30-AUG-2023) Abnormal ECG When compared with ECG of 05-SEP-2023 09:37, QT has shortened Referred By: Godwin Jenkins Electronically Signed By:NATALYA JARAMILLO MD
[2023-09-07 11:15] VITALS: BP 132/75; BP 138/61; PULSE 75; PULSE 88; RESP 20; TEMP 37.3; O2SAT 100; O2SAT 95; BMI 26.7
[2023-09-07 11:20] LABS: Glucose, Whole Blood 131 mg/dL (60-115)
[2023-09-07 11:22] LABS: Prothrombin Time Whole Bld POC 17.1 sec (11.1-13.5); ~PT, ~INR - Anti Coag Clinic 1.4 (0.9-1.1)
--- NOTE | 2023-09-07 11:40 | PC.NURSE ---
pt covered in bruises from recent admission, pt also has rash noted primarily to truck of body. aware.
--- NOTE | 2023-09-07 11:41 | PC.NURSE ---
unable to establish IV at this time, made aware.
[2023-09-07 12:04] LABS: Basophils Percent Auto 0.2 % (0-2); Eosinophils Absolute Auto 0.4 X10*3/uL (0.0-0.4); Hematocrit 41.8 % (37.0-47.0); Hemoglobin 12.5 g/dl (12.0-16.0); Imm Gran Abs Auto 0.12 X10*3/uL (0.00-0.03); Lymphocytes Absolute Auto 0.3 X10*3/uL (1.2-4.9); Lymphocytes Percent Auto 2.3 % (20-40); MANUAL DIFF FLAG NO; Mean Corpuscular HGB Conc 29.9 g/dl (31.0-35.0); Mean Corpuscular Hemoglobin 28.7 pg (27.0-33.0); Mean Corpuscular Volume 96.1 fL (80.0-98.0); Mean Platelet Volume 10.2 fL (9.4-12.3); Monocytes Absolute Auto 0.9 X10*3/uL (0.1-1.2); Monocytes Percent Auto 7.5 % (2-11); Neutrophils Absolute Auto 10.6 x10*3/uL (2.0-8.3); Red Blood Count 4.35 X10*6/uL (4.20-5.50); Red Cell Distribution Width 17.7 % (11.0-16.0); White Blood Count 12.4 X10*3/uL (4.8-10.8)
[2023-09-07 12:05] LABS: Platelet Count 77 X10*3/uL (160-400)
[2023-09-07 12:11] LABS: VBG Base Excess 3.6 mmol/L; VBG HCO3 32 mmol/L (22-26); VBG pCO2 68 mmHg; VBG pH 7.28 (7.32-7.43); VBG pO2 114 mmHg
[2023-09-07 12:12] LABS: INTERNATIONAL NORM RATIO 1.5 (0.9-1.1); Prothrombin Time 18.1 SEC (11.1-13.3)
[2023-09-07 12:15] LABS: Partial Thromboplastin Time 31.4 SEC (26.0-36.8)
[2023-09-07 12:16] LABS: Stroke Lab Use COMPLETE
[2023-09-07 12:19] LABS: Alanine Aminotransferase 11 U/L (0-31); Alkaline Phosphatase 65 U/L (39-117); Anion Gap 10 (12-20); Aspartate Amino Transferase 23 U/L (5-31); Bilirubin Direct 0.4 mg/dL (0.0-0.5); Bilirubin Total 0.9 mg/dL (0.0-1.0); Blood Urea Nitrogen 16 mg/dL (9-16); Calcium 8.5 mg/dL (8.4-10.2); Carbon Dioxide 32 mmol/L (22-29); Chloride 107 mmol/L (96-108); Creatinine Clr Calc Pharmacy 43.5; Estimated Glomerular Filt Rate 51; Glucose Random 137 mg/dL (60-115); Potassium 3.6 mmol/L (3.3-5.1); Sodium 145 mmol/L (135-145); Total Protein 6.4 g/dL (6.5-8.0)
[2023-09-07 12:23] LABS: Troponin-I High Sensitivity 22.1 ng/L (<3.5-17.0)
[2023-09-07 12:55] LABS: Venous Blood Gas Refer to POC result
[2023-09-07 13:00] LABS: C Reactive Protein 4.35 mg/dL (< or = 0.50)
[2023-09-07 13:13] LABS: B Type Natriuretic Peptide 145 pg/mL (<100)
[2023-09-07 13:37] LABS: Appearance Urine Cloudy; Color Urine Yellow; Glucose Urine UA Negative (Negative); Leukocyte Esterase Urine Large (3+) (Negative); Nitrite Urine Negative (Negative); Specific Gravity - Urine 1.015 (1.005-1.025); UMIC TRIGGER UACC YES; Urine Blood Large (3+) (Negative); Urine Ketones Negative (Negative); Urine Protein 30 (1+) mg/dL (Neg-Trace)
[2023-09-07 13:40] VITALS: BP 116/52; PULSE 74; RESP 29; O2SAT 96
[2023-09-07 14:02] LABS: Bacteria Urine None Seen (None Seen); Calcium Oxalate Crystals Urine Present; Hyaline Casts Urine >20 /LPF (0-2); RBC Urine >20 /HPF (0-2); Squamous Epithelial Cell Urine 0-2 /HPF (0-2); UACC Culture Trigger YES; WBC Urine >50 /HPF (0-5)
--- NOTE | 2023-09-07 15:10 | MHC.CM.ED ---
Received case management consult from Dr Jenkins. Patient was d/c'd from [facility] to [facility] on 09/03. Patient returned to the ER due to CVA symptoms. Patient found to have an UTI. Staff has not been able to obtain IV access. Provider was unable to insert IJ IV. Family is not intersted in pursuing care and would like patient to be made hospice. T/W met with patient, Austyn, daughter Meri and son Driss in regards to discharge planning. Patient is currently lethargic. Austyn, Meri and Driss feel patient would benefit from hospice. Hospice at home vs hospice at a SNF discussed. Family would prefer patient come home and they will care for her there. They will need a hospital bed. Referral made to [facility]. Yi will call patient's daughter, Meri, via telephone at [phone] for an informational meeting. Yi is unsure if they will be able to get equipment and admit to hospice on Saturday but will update CM. Konstantin ANDRE and Dr Jenkins aware. Continue to monitor for d/c needs.
--- NOTE | 2023-09-07 15:47 | PC.NURSE ---
pt moved into a hospital bed for comfort. cardiac monitoring removed from pt. O2 remains in place for comfort. pt awaiting hospital bed to be brought to her home for hospice. likely will happen tomorrow per hospice.
--- NOTE | 2023-09-07 17:23 | PC.NURSE ---
assumed care of patient, patient appears to be resting comfortably, respirations even and unlabored, patients daughter at bedside, patient currently [employer]TI[employer] F[employer] REPA[employer]ER
--- NOTE | 2023-09-07 17:25 | MHC.EDTECH ---
HOSPICE CALLED AROUND 1700 REQUESTING TRANSPORT BE BOOKED FOR PT. THEY SPOKE WITH AND CONFIRMED PATIENT WILL GO HOME ON HOSPICE THURSDAY 09/07 AROUND 9AM.
--- NOTE | 2023-09-07 17:28 | PC.NURSE ---
check on pt, she is resting with eyes closed, breathing even and unlabored, remains on 02 for comfort. pt does not appear in any distress, no restless or agitation present. daughter remains at bedside. needs met. daughter aware of plan of care and allow of privacy from staff. educated on use of call cotter.
[2023-09-08 06:00] VITALS: RESP 14
[2023-09-08 12:37] VITALS: BP 116/52; PULSE 74; RESP 29; TEMP -17.7; TEMP 0; O2SAT 96
== END 2023-09-08 10:00 | disposition home or self-care (01) ==
PROVIDERS: Emergency Provider Emergency Medicine; PCP Internal Medicine
DX: G92.8 Other toxic encephalopathy (principal); R06.89 Other abnormalities of breathing; F03.90 Unspecified dementia, unspecified severity, without behavioral disturbance, psychotic disturbance, mood disturbance, and anxiety; R21 Rash and other nonspecific skin eruption; R29.810 Facial weakness; E11.22 Type 2 diabetes mellitus with diabetic chronic kidney disease; I13.0 Hypertensive heart and chronic kidney disease with heart failure and stage 1 through stage 4 chronic kidney disease, or unspecified chronic kidney disease; N18.32 Chronic kidney disease, stage 3b; I50.30 Unspecified diastolic (congestive) heart failure; E78.5 Hyperlipidemia, unspecified; I48.19 Other persistent atrial fibrillation; J96.01 Acute respiratory failure with hypoxia; Z79.02 Long term (current) use of antithrombotics/antiplatelets; Z79.899 Other long term (current) drug therapy; Z99.81 Dependence on supplemental oxygen; Z79.82 Long term (current) use of aspirin; Z79.01 Long term (current) use of anticoagulants
CPT/HCPCS: 36415; 70450; 71045; 80048; 80076; 81001; 82550; 82803; 82947; 83735; 83880; 84484; 85025; 85610; 85730; 86140; 87086; 87088; 93005; 99284

== ENCOUNTER → 2023-09-07 10:59 | Outpatient (BNV) | payer MEDICARE, SELFPAY | PROVIDERS: Emergency Provider Emergency Medicine; PCP Family Medicine; Visit Provider Internal Medicine Cardiovascular Disease | DX: I48.91 Unspecified atrial fibrillation (principal) | CPT/HCPCS: 93010 ==